=== PATIENT | male | born 1980 | race American Indian/Alaskan Native ===

== ENCOUNTER 2017-01-16 19:23 | Emergency (ER) | payer MEDICAID ==
--- NOTE | 2017-01-16 22:30 | Emergency Department Report ---
ED ENT HPI - General Chief complaint: Dental/Oral Stated complaint: TOOTHACHE Time Seen by Provider: 01/16/17 22:30 Source: patient Mode of arrival: Ambulatory Limitations: No Limitations - History of Present Illness Initial comments: 36-year-old male presents to emergency room with left sided upper toothache. Complains of pain started 3 days ago. Denies any injury to his teeth. History of chronic bowel problems but never get to see dentist. Denies any fever or difficulty swallowing. MD complaint: tooth pain -: Gradual (few days) Location: tooth # (14,15,16) Severity: moderate Severity scale (0 -10): 3 Quality: aching, dull Consistency: constant Worsens with: eating (chewing) Context- Dental: history of dental caries Associated Symptoms: denies: fever, pain with swallowing, sore throat - Related Data Previous Rx's Medication Instructions Recorded Last Taken Type Amoxicillin/K Clav Tab [Augmentin 1 tab PO Q12H #14 tablet 12/10/14 Unknown Rx 875MG] HYDROcodone/APAP 5-325 [[place] 1 each PO Q6HR PRN #12 tablet 12/10/14 Unknown Rx 5/325] Amoxicillin/K Clav Tab [Augmentin 1 tab PO Q12HR #20 tab 05/16/15 Unknown Rx 875MG TAB] Ibuprofen [Motrin 800 MG tab] 800 mg PO TID PRN #20 tablet 05/24/15 Unknown Rx Loratadine/Pseudoephedrine 1 each PO Q12H #20 tablet 05/24/15 Unknown Rx [Claritin-D 12HR] Benzonatate [Tessalon Perles] 100 mg PO Q8HR #20 capsule 05/31/15 Unknown Rx [place] Furoate [Nasonex] 2 spray NS QDAY #1 bottle 05/31/15 Unknown Rx Acetaminophen/Codeine [Tylenol 1 tab PO Q6H PRN #12 tab 01/17/17 Unknown Rx /Codeine # 3 tab] Amoxicillin 500 mg PO TID #30 capsule 01/17/17 Unknown Rx Diclofenac Sodium 75 mg PO BID #20 tablet. 01/17/17 Unknown Rx Allergies Allergy/AdvReac Type Severity Reaction Status Date / Time prednisone Allergy Unknown Verified 01/16/17 20:46 ED Dental HPI - General Chief complaint: Dental/Oral Stated complaint: TOOTHACHE Time Seen by Provider: 01/16/17 22:30 Source: patient Mode of arrival: Ambulatory Limitations: No Limitations - Related Data Previous Rx's Medication Instructions Recorded Last Taken Type Amoxicillin/K Clav Tab [Augmentin 1 tab PO Q12H #14 tablet 12/10/14 Unknown Rx 875MG] HYDROcodone/APAP 5-325 [[place] 1 each PO Q6HR PRN #12 tablet 12/10/14 Unknown Rx 5/325] Amoxicillin/K Clav Tab [Augmentin 1 tab PO Q12HR #20 tab 05/16/15 Unknown Rx 875MG TAB] Ibuprofen [Motrin 800 MG tab] 800 mg PO TID PRN #20 tablet 05/24/15 Unknown Rx Loratadine/Pseudoephedrine 1 each PO Q12H #20 tablet 05/24/15 Unknown Rx [Claritin-D 12HR] Benzonatate [Tessalon Perles] 100 mg PO Q8HR #20 capsule 05/31/15 Unknown Rx [place] Furoate [Nasonex] 2 spray NS QDAY #1 bottle 05/31/15 Unknown Rx Acetaminophen/Codeine [Tylenol 1 tab PO Q6H PRN #12 tab 01/17/17 Unknown Rx /Codeine # 3 tab] Amoxicillin 500 mg PO TID #30 capsule 01/17/17 Unknown Rx Diclofenac Sodium 75 mg PO BID #20 tablet. 01/17/17 Unknown Rx Allergies Allergy/AdvReac Type Severity Reaction Status Date / Time prednisone Allergy Unknown Verified 01/16/17 20:46 ED Review of Systems ROS: Stated complaint: TOOTHACHE Other details as noted in HPI Comment: All other systems reviewed and negative Constitutional: denies: chills, fever Eyes: denies: eye pain, eye discharge, vision change ENT: dental pain. denies: ear pain, throat pain Respiratory: denies: cough, shortness of breath, wheezing Cardiovascular: denies: chest pain, palpitations Endocrine: no symptoms reported Gastrointestinal: denies: abdominal pain, nausea, diarrhea Genitourinary: denies: urgency, dysuria Musculoskeletal: denies: back pain, joint swelling, arthralgia Skin: denies: rash, lesions Neurological: denies: headache, weakness, paresthesias Psychiatric: denies: anxiety, depression Hematological/Lymphatic: denies: easy bleeding, easy bruising ED Past Medical Hx - Past Medical History Previous Medical History?: Yes Hx Psychiatric Treatment: No Additional medical history: seasonal allergies ,[place], heart murmur - Surgical History Past Surgical History?: Yes Additional Surgical History: SINUS SURGERY - Social History Smoking Status: Current Some Day Smoker Substance Use Type: None - Medications Home Medications: Home Medications Medication Instructions Recorded Confirmed Last Taken Type Amoxicillin/K Clav Tab [Augmentin 1 tab PO Q12H #14 tablet 12/10/14 Unknown Rx 875MG] HYDROcodone/APAP 5-325 [[place] 1 each PO Q6HR PRN #12 tablet 12/10/14 Unknown Rx 5/325] Amoxicillin/K Clav Tab [Augmentin 1 tab PO Q12HR #20 tab 05/16/15 Unknown Rx 875MG TAB] Ibuprofen [Motrin 800 MG tab] 800 mg PO TID PRN #20 tablet 05/24/15 Unknown Rx Loratadine/Pseudoephedrine 1 each PO Q12H #20 tablet 05/24/15 Unknown Rx [Claritin-D 12HR] Benzonatate [Tessalon Perles] 100 mg PO Q8HR #20 capsule 05/31/15 Unknown Rx [place] Furoate [Nasonex] 2 spray NS QDAY #1 bottle 05/31/15 Unknown Rx Acetaminophen/Codeine [Tylenol 1 tab PO Q6H PRN #12 tab 01/17/17 Unknown Rx /Codeine # 3 tab] Amoxicillin 500 mg PO TID #30 capsule 01/17/17 Unknown Rx Diclofenac Sodium 75 mg PO BID #20 tablet. 01/17/17 Unknown Rx ED Physical Exam - General Limitations: No Limitations General appearance: alert, in no apparent distress - Head Head exam: Present: atraumatic, normocephalic - Eye Eye exam: Present: normal appearance - ENT ENT exam: Present: normal exam, mucous membranes moist - Expanded ENT Exam Expanded Ear exam: Present: normal external inspection Mouth exam: Present: normal external inspection Teeth exam: Present: dental caries, dental tenderness # () - Neck Neck exam: Present: normal inspection - Respiratory Respiratory exam: Present: normal lung sounds bilaterally. Absent: respiratory distress - Cardiovascular Cardiovascular Exam: Present: regular rate, normal rhythm. Absent: systolic murmur, diastolic murmur, rubs, gallop - GI/Abdominal GI/Abdominal exam: Present: soft, normal bowel sounds - Rectal Rectal exam: Present: deferred - Extremities Exam Extremities exam: Present: normal inspection - Back Exam Back exam: Present: normal inspection - Neurological Exam Neurological exam: Present: alert, oriented X3 - Psychiatric Psychiatric exam: Present: normal affect, normal mood - Skin Skin exam: Present: warm, dry, intact, normal color. Absent: rash ED Course Vital Signs 01/16/17 20:46 Temperature 98.3 F Pulse Rate 50 L Respiratory 18 Rate Blood Pressure 136/86 O2 Sat by Pulse 100 Oximetry Critical care attestation.: If time is entered above; I have spent that time in minutes in the direct care of this critically ill patient, excluding procedure time. ED Disposition Clinical Impression: Dental caries extending into pulp, Dental abscess, Toothache Disposition: DISCHARGED TO HOME OR SELFCARE Is pt being admited?: No Does the pt Need Aspirin: No Condition: Good Instructions: Dental Caries (ED) Prescriptions: Acetaminophen/Codeine [Tylenol /Codeine # 3 tab] 1 tab PO Q6H PRN #12 tab PRN Reason: Pain Amoxicillin 500 mg PO TID #30 capsule Diclofenac Sodium 75 mg PO BID #20 tablet. Referrals: [facility] [Outside] - 3-5 Days
[2017-01-16] MEDS ORDERED: CLEOCIN PO ONE (22:44)
[2017-01-16] MEDS ORDERED: NORCO 10/325 PO ONE (22:45)
[2017-01-17 00:46] VITALS: BP 135/81
== END 2017-01-17 00:47 | disposition home or self-care (01) ==
LOC: ED 19:23
DX: K02.9 Dental caries, unspecified (principal); K04.7 Periapical abscess without sinus; F17.200 Nicotine dependence, unspecified, uncomplicated; Z88.8 Allergy status to other drugs, medicaments and biological substances
CPT/HCPCS: 99282

== ENCOUNTER 2017-03-06 13:38 | Emergency (ER) | payer MEDICAID ==
[2017-03-06 13:53] VITALS: BP 115/72
[2017-03-06 14:10] LABS: Eosinophils % (Auto) 5.6 % (0.0-4.3); Hematocrit 52.1 % (35.5-45.6); Hemoglobin 17.7 gm/dl (11.8-15.2); Mean Corpuscular HGB Conc 34 % (32-34); Mean Corpuscular Hemoglobin 30 pg (28-32); Mean Corpuscular Volume 90 fl (84-94); Platelet Count 244 K/mm3 (140-440); Red Cell Distribution Width 14.4 % (13.2-15.2); White Blood Count 6.2 K/mm3 (4.5-11.0)
[2017-03-06 14:30] LABS: Alanine Aminotransferase 14 units/L (7-56); Albumin 4.3 g/dL (3.9-5); Albumin/Globulin Ratio 1.2 %; Alkaline Phosphatase 24 units/L (35-129); Anion Gap 20 mmol/L; BUN/Creatinine Ratio 14.44; Blood Urea Nitrogen 13 mg/dL (9-20); Calcium 10.3 mg/dL (8.4-10.2); Carbon Dioxide 25 mmol/L (22-30); Chloride 96.3 mmol/L (98-107); Glucose 87 mg/dL (75-100); Lipase 22 units/L (13-60); Sodium 138 mmol/L (137-145); Total Protein 7.9 g/dL (6.3-8.2)
[2017-03-06 14:56] LABS: Bilirubin,Urine NEG (Negative); Blood,Urine NEG (Negative); Ketones,Urine TR mg/dL (Negative); Leukocyte Esterase,Urine NEG (Negative); Mucus,Urine FEW /HPF; Nitrite,Urine NEG (Negative); Urobilinogen,Urine < 2.0 mg/dL (<2.0); WBC,Urine < 1.0 /HPF (0.0-6.0)
== END 2017-03-06 18:30 | disposition left against medical advice (07) ==
LOC: ED 13:38
DX: R10.9 Unspecified abdominal pain (principal); R11.0 Nausea; M79.606 Pain in leg, unspecified; Z53.21 Procedure and treatment not carried out due to patient leaving prior to being seen by health care provider
CPT/HCPCS: 36415; 80053; 81001; 83690; 85025

== ENCOUNTER 2017-03-08 12:11 | Emergency (ER) | payer MEDICAID ==
[2017-03-08 13:16] LABS: Basophils % (Auto) 0.5 % (0.0-1.8); Eosinophils % (Auto) 5.5 % (0.0-4.3); Hematocrit 46.7 % (35.5-45.6); Hemoglobin 15.7 gm/dl (11.8-15.2); Mean Corpuscular HGB Conc 34 % (32-34); Mean Corpuscular Hemoglobin 30 pg (28-32); Mean Corpuscular Volume 91 fl (84-94); Platelet Count 221 K/mm3 (140-440); Red Blood Count 5.15 M/mm3 (3.65-5.03); Red Cell Distribution Width 14.6 % (13.2-15.2); White Blood Count 6.1 K/mm3 (4.5-11.0)
[2017-03-08 13:39] LABS: Bilirubin,Urine NEG (Negative); Blood,Urine NEG (Negative); Ketones,Urine NEG (Negative); Leukocyte Esterase,Urine NEG (Negative); Nitrite,Urine NEG (Negative); Protein,Urine <15 mg/dL mg/dL (Negative); Urobilinogen,Urine < 2.0 mg/dL (<2.0)
[2017-03-08] MEDS ORDERED: BENTYL IM ONE (13:50)
--- NOTE | 2017-03-08 13:57 | Emergency Department Report ---
ED Abdominal Pain HPI - General Chief Complaint: Abdominal Pain Stated Complaint: LEG PAIN/COUGH Time Seen by Provider: 03/08/17 13:25 Source: patient Mode of arrival: Ambulatory Limitations: No Limitations - History of Present Illness Initial Comments: 36-year-old male presents to the emergency department complaining of abdominal pain, cough, and leg pain. Patient reports intermittent, cramping abdominal pain for approximately one week. Symptoms began after eating [place] food. Patient states he vomited shortly after the pain began. Since that time, the patient has been able to tolerate clear liquids and crackers. However, he states whenever he tries to eat a regular meal, the pain returns and he vomits. There has been no diarrhea. Approximately 2 days ago, he also began having a cough productive of yellow sputum. There has been no fever. Patient states that he also ran out of his pain medication for his right leg 2 days ago. Patient had a leg injury several weeks ago and underwent physical therapy. There are no other complaints. MD Complaint: abdominal pain -: Gradual, week(s) (1) Location: diffuse Radiation: none Migration to: no migration Severity: moderate Severity scale (0 -10): 4 Quality: cramping Consistency: intermittent Improves With: nothing Worsens With: eating Context: possible food poisoning Associated Symptoms: nausea, vomiting - Related Data Previous Rx's Medication Instructions Recorded Last Taken Type Amoxicillin/K Clav Tab [Augmentin 1 tab PO Q12H #14 tablet 12/10/14 Unknown Rx 875MG] HYDROcodone/APAP 5-325 [[place] 1 each PO Q6HR PRN #12 tablet 12/10/14 Unknown Rx 5/325] Amoxicillin/K Clav Tab [Augmentin 1 tab PO Q12HR #20 tab 05/16/15 Unknown Rx 875MG TAB] Ibuprofen [Motrin 800 MG tab] 800 mg PO TID PRN #20 tablet 05/24/15 Unknown Rx Loratadine/Pseudoephedrine 1 each PO Q12H #20 tablet 05/24/15 Unknown Rx [Claritin-D 12HR] Benzonatate [Tessalon Perles] 100 mg PO Q8HR #20 capsule 05/31/15 Unknown Rx Mometasone Furoate [Nasonex] 2 spray NS QDAY #1 bottle 05/31/15 Unknown Rx Acetaminophen/Codeine [Tylenol 1 tab PO Q6H PRN #12 tab 01/17/17 Unknown Rx /Codeine # 3 tab] Amoxicillin 500 mg PO TID #30 capsule 01/17/17 Unknown Rx Diclofenac Sodium 75 mg PO BID #20 tablet. 01/17/17 Unknown Rx Acetaminophen with Codeine 1 each PO Q6HR PRN #30 tablet 03/08/17 Unknown Rx [Acetaminophen-Codeine #4 TAB] Promethazine [Phenergan 6.25 mg/5 10 ml PO Q6H PRN #120 ml 03/08/17 Unknown Rx ml ORAL LIQ] Allergies Allergy/AdvReac Type Severity Reaction Status Date / Time prednisone Allergy Unknown Verified 03/08/17 12:30 ED Review of Systems ROS: Stated complaint: LEG PAIN/COUGH Other details as noted in HPI Comment: All other systems reviewed and negative Respiratory: cough Gastrointestinal: abdominal pain, nausea, vomiting Musculoskeletal: as per HPI, myalgia ED Past Medical Hx - Past Medical History Previous Medical History?: Yes Hx Psychiatric Treatment: No Additional medical history: seasonal allergies ,[id number], heart murmur - Surgical History Past Surgical History?: Yes Additional Surgical History: SINUS SURGERY - Family History Family history: no significant - Social History Smoking Status: Current Every Day Smoker Substance Use Type: Alcohol, Marijuana - Medications Home Medications: Home Medications Medication Instructions Recorded Confirmed Last Taken Type Amoxicillin/K Clav Tab [Augmentin 1 tab PO Q12H #14 tablet 12/10/14 Unknown Rx 875MG] HYDROcodone/APAP 5-325 [[place] 1 each PO Q6HR PRN #12 tablet 12/10/14 Unknown Rx 5/325] Amoxicillin/K Clav Tab [Augmentin 1 tab PO Q12HR #20 tab 05/16/15 Unknown Rx 875MG TAB] Ibuprofen [Motrin 800 MG tab] 800 mg PO TID PRN #20 tablet 05/24/15 Unknown Rx Loratadine/Pseudoephedrine 1 each PO Q12H #20 tablet 05/24/15 Unknown Rx [Claritin-D 12HR] Benzonatate [Tessalon Perles] 100 mg PO Q8HR #20 capsule 05/31/15 Unknown Rx Mometasone Furoate [Nasonex] 2 spray NS QDAY #1 bottle 05/31/15 Unknown Rx Acetaminophen/Codeine [Tylenol 1 tab PO Q6H PRN #12 tab 01/17/17 Unknown Rx /Codeine # 3 tab] Amoxicillin 500 mg PO TID #30 capsule 01/17/17 Unknown Rx Diclofenac Sodium 75 mg PO BID #20 tablet. 01/17/17 Unknown Rx Acetaminophen with Codeine 1 each PO Q6HR PRN #30 tablet 03/08/17 Unknown Rx [Acetaminophen-Codeine #4 TAB] Promethazine [Phenergan 6.25 mg/5 10 ml PO Q6H PRN #120 ml 03/08/17 Unknown Rx ml ORAL LIQ] ED Physical Exam - General Limitations: No Limitations General appearance: alert, in no apparent distress - Head Head exam: Present: atraumatic, normocephalic - Eye Eye exam: Present: normal appearance, PERRL, EOMI - ENT ENT exam: Present: normal exam, normal orophraynx, mucous membranes moist - Neck Neck exam: Present: normal inspection, full ROM. Absent: tenderness - Respiratory Respiratory exam: Present: normal lung sounds bilaterally. Absent: respiratory distress - Cardiovascular Cardiovascular Exam: Present: regular rate, normal rhythm, normal heart sounds - GI/Abdominal GI/Abdominal exam: Present: soft, tenderness (mild diffuse tenderness to palpation), normal bowel sounds. Absent: distended, guarding, rebound - Extremities Exam Extremities exam: Present: normal inspection, full ROM. Absent: tenderness - Back Exam Back exam: Present: normal inspection, full ROM. Absent: tenderness - Neurological Exam Neurological exam: Present: alert, oriented X3. Absent: motor sensory deficit - Skin Skin exam: Present: warm, dry, intact ED Course Vital Signs 03/08/17 03/08/17 03/08/17 12:25 14:00 14:16 Temperature 98.1 F Pulse Rate 106 H 53 L Respiratory 18 16 16 Rate Blood Pressure 121/86 Blood Pressure 101/60 [Left] O2 Sat by Pulse 99 99 99 Oximetry ED Medical Decision Making - Lab Data Result diagrams: 03/08/17 12:50 03/08/17 12:50 - Radiology Data Radiology results: image reviewed interpreted by me: Chest x-ray shows no acute cardiopulmonary abnormality. - Medical Decision Making Lab and imaging results reviewed and discussed with the patient. Patient reports feeling better with medication. Patient will be discharged home at this time to follow up with his primary care physician. - Differential Diagnosis gastritis, electrolyte abnormalities, bronchitis, chronic pain Critical care attestation.: If time is entered above; I have spent that time in minutes in the direct care of this critically ill patient, excluding procedure time. ED Disposition Clinical Impression: Cough Gastritis Qualifiers: Gastritis type: unspecified gastritis Chronicity: acute Gastritis bleeding: without bleeding Qualified Code(s): K29.00 - Acute gastritis without bleeding Disposition: DISCHARGED TO HOME OR SELFCARE Is pt being admited?: No Condition: Stable Instructions: Gastritis (ED) Prescriptions: Acetaminophen with Codeine [Acetaminophen-Codeine #4 TAB] 1 each PO Q6HR PRN # 30 tablet PRN Reason: Pain Promethazine [Phenergan 6.25 mg/5 ml ORAL LIQ] 10 ml PO Q6H PRN #120 ml PRN Reason: Nausea And Vomiting Referrals: PRIMARY CARE, [Primary Care Provider] - 3-5 Days Time of Disposition: 14:58
[2017-03-08 14:15] LABS: Alanine Aminotransferase 13 units/L (7-56); Albumin 4.3 g/dL (3.9-5); Albumin/Globulin Ratio 1.3 %; Alkaline Phosphatase 23 units/L (35-129); Anion Gap 20 mmol/L; Blood Urea Nitrogen 18 mg/dL (9-20); Calcium 9.8 mg/dL (8.4-10.2); Carbon Dioxide 26 mmol/L (22-30); Chloride 98.5 mmol/L (98-107); Glucose 91 mg/dL (75-100); Lipase 33 units/L (13-60); Potassium 3.3 mmol/L (3.6-5.0); Sodium 141 mmol/L (137-145); Total Protein 7.5 g/dL (6.3-8.2)
--- NOTE | 2017-03-08 14:38 | XRay Report ---
AP CHEST: HISTORY: Cough AP view of the chest demonstrates a normal mediastinal and cardiac contour with clear lungs and normal bony and soft tissue structures. IMPRESSION: Unremarkable AP chest.
[2017-03-08 15:11] VITALS: BP 108/57
== END 2017-03-08 15:10 | disposition home or self-care (01) ==
LOC: ED 12:11
DX: K29.00 Acute gastritis without bleeding (principal); F17.200 Nicotine dependence, unspecified, uncomplicated; F12.10 Cannabis abuse, uncomplicated
CPT/HCPCS: 36415; 71010; 80053; 81001; 83690; 85025; 96372; 99284; J0500

== ENCOUNTER 2017-03-27 10:28 | Emergency (ER) | payer MEDICAID ==
[2017-03-27 11:24] LABS: Basophils % (Auto) 0.8 % (0.0-1.8); Eosinophils % (Auto) 3.9 % (0.0-4.3); Hemoglobin 16.7 gm/dl (11.8-15.2); Mean Corpuscular HGB Conc 33 % (32-34); Mean Corpuscular Hemoglobin 30 pg (28-32); Mean Corpuscular Volume 91 fl (84-94); Platelet Count 227 K/mm3 (140-440); Red Blood Count 5.51 M/mm3 (3.65-5.03); White Blood Count 5.6 K/mm3 (4.5-11.0)
[2017-03-27 11:40] LABS: Alanine Aminotransferase 18 units/L (7-56); Albumin 3.9 g/dL (3.9-5); Albumin/Globulin Ratio 1.2 %; Alkaline Phosphatase 24 units/L (35-129); Anion Gap 15 mmol/L; Blood Urea Nitrogen 11 mg/dL (9-20); Calcium 9.4 mg/dL (8.4-10.2); Carbon Dioxide 28 mmol/L (22-30); Chloride 102.5 mmol/L (98-107); Glucose 89 mg/dL (75-100); Lipase 44 units/L (13-60); Potassium 3.4 mmol/L (3.6-5.0); Sodium 142 mmol/L (137-145); Total Protein 7.1 g/dL (6.3-8.2)
[2017-03-27 11:43] LABS: Bilirubin,Urine NEG (Negative); Blood,Urine NEG (Negative); Ketones,Urine NEG (Negative); Leukocyte Esterase,Urine TR (Negative); Nitrite,Urine NEG (Negative); Protein,Urine <15 mg/dL mg/dL (Negative); Urobilinogen,Urine < 2.0 mg/dL (<2.0)
[2017-03-27] MEDS ORDERED: ZOFRAN IV ONE (14:17)
[2017-03-27] MEDS ORDERED: TORADOL IV ONE (14:17)
--- NOTE | 2017-03-27 14:18 | Emergency Department Report ---
ED Abdominal Pain HPI - General Chief Complaint: Abdominal Pain Stated Complaint: N/V ABD PAIN Source: patient Mode of arrival: Ambulatory Limitations: No Limitations - Related Data Previous Rx's Medication Instructions Recorded Last Taken Type Amoxicillin/K Clav Tab [Augmentin 1 tab PO Q12H #14 tablet 12/10/14 Unknown Rx 875MG] HYDROcodone/APAP 5-325 [[place] 1 each PO Q6HR PRN #12 tablet 12/10/14 Unknown Rx 5/325] Amoxicillin/K Clav Tab [Augmentin 1 tab PO Q12HR #20 tab 05/16/15 Unknown Rx 875MG TAB] Ibuprofen [Motrin 800 MG tab] 800 mg PO TID PRN #20 tablet 05/24/15 Unknown Rx Loratadine/Pseudoephedrine 1 each PO Q12H #20 tablet 05/24/15 Unknown Rx [Claritin-D 12HR] Benzonatate [Tessalon Perles] 100 mg PO Q8HR #20 capsule 05/31/15 Unknown Rx Mometasone Furoate [Nasonex] 2 spray NS QDAY #1 bottle 05/31/15 Unknown Rx Acetaminophen/Codeine [Tylenol 1 tab PO Q6H PRN #12 tab 01/17/17 Unknown Rx /Codeine # 3 tab] Amoxicillin 500 mg PO TID #30 capsule 01/17/17 Unknown Rx Diclofenac Sodium 75 mg PO BID #20 tablet. 01/17/17 Unknown Rx Acetaminophen with Codeine 1 each PO Q6HR PRN #30 tablet 03/08/17 Unknown Rx [Acetaminophen-Codeine #4 TAB] Promethazine [Phenergan 6.25 mg/5 10 ml PO Q6H PRN #120 ml 03/08/17 Unknown Rx ml ORAL LIQ] Allergies Allergy/AdvReac Type Severity Reaction Status Date / Time prednisone Allergy Unknown Verified 03/08/17 12:30 ED Review of Systems ROS: Stated complaint: N/V ABD PAIN Other details as noted in HPI ED Past Medical Hx - Past Medical History Previous Medical History?: Yes Hx Psychiatric Treatment: No Additional medical history: seasonal allergies ,[place], heart murmur - Surgical History Past Surgical History?: Yes Additional Surgical History: SINUS SURGERY - Social History Smoking Status: Current Every Day Smoker Substance Use Type: Marijuana - Medications Home Medications: Home Medications Medication Instructions Recorded Confirmed Last Taken Type Amoxicillin/K Clav Tab [Augmentin 1 tab PO Q12H #14 tablet 12/10/14 Unknown Rx 875MG] HYDROcodone/APAP 5-325 [[place] 1 each PO Q6HR PRN #12 tablet 12/10/14 Unknown Rx 5/325] Amoxicillin/K Clav Tab [Augmentin 1 tab PO Q12HR #20 tab 05/16/15 Unknown Rx 875MG TAB] Ibuprofen [Motrin 800 MG tab] 800 mg PO TID PRN #20 tablet 05/24/15 Unknown Rx Loratadine/Pseudoephedrine 1 each PO Q12H #20 tablet 05/24/15 Unknown Rx [Claritin-D 12HR] Benzonatate [Tessalon Perles] 100 mg PO Q8HR #20 capsule 05/31/15 Unknown Rx Mometasone Furoate [Nasonex] 2 spray NS QDAY #1 bottle 05/31/15 Unknown Rx Acetaminophen/Codeine [Tylenol 1 tab PO Q6H PRN #12 tab 01/17/17 Unknown Rx /Codeine # 3 tab] Amoxicillin 500 mg PO TID #30 capsule 01/17/17 Unknown Rx Diclofenac Sodium 75 mg PO BID #20 tablet. 01/17/17 Unknown Rx Acetaminophen with Codeine 1 each PO Q6HR PRN #30 tablet 03/08/17 Unknown Rx [Acetaminophen-Codeine #4 TAB] Promethazine [Phenergan 6.25 mg/5 10 ml PO Q6H PRN #120 ml 03/08/17 Unknown Rx ml ORAL LIQ] ED Physical Exam - General Limitations: No Limitations ED Course Vital Signs 03/27/17 10:58 Temperature 98.5 F Pulse Rate 53 L Respiratory 16 Rate Blood Pressure 125/77 O2 Sat by Pulse 100 Oximetry ED Medical Decision Making - Lab Data Result diagrams: 03/27/17 11:07 03/27/17 11:07 Critical care attestation.: If time is entered above; I have spent that time in minutes in the direct care of this critically ill patient, excluding procedure time. ED Disposition Condition: Stable Referrals: PRIMARY CARE,MD [Primary Care Provider] - 3-5 Days
[2017-03-27] MEDS ORDERED: NACL ONE (15:00)
--- NOTE | 2017-03-27 16:04 | Cat Scan Report ---
CT abdomen and pelvis with contrast: Abdominal pain. Transverse images are obtained from lower chest to the ischium following IV contrast. 2-D sagittal and coronal reformatted images included. The visualized lungs are clear. The abdominal and retroperitoneal organs are unremarkable. The unopacified bowel and mesentery appears generally unremarkable. The appendix is questionably identified and if so is retrocecal and normal. There is a relative paucity of mesenteric fat. There is no obvious adenopathy. The abdominal aorta is unremarkable. Images of the pelvis appear normal. No free fluid in no inflammatory changes identified. The bony structures appear normal. Impressions: No pathology identified.
--- NOTE | 2017-03-27 16:27 | Emergency Department Report ---
Entered by YASSINE ENAMORADO, acting as scribe for SERAFIN FLORES PA. <SERAFIN FLORES - Last Filed: 03/27/17 16:09> ED Abdominal Pain HPI - General Chief Complaint: Abdominal Pain Stated Complaint: N/V ABD PAIN Time Seen by Provider: 03/27/17 14:23 Source: patient, family Mode of arrival: Ambulatory Limitations: No Limitations - History of Present Illness Initial Comments: 36 y/o male with a PMHx of heart murmur presents to the ED c/o lower abdominal pain that began 2 days ago. Rates pain a 9/10 in severity, which he describes as sharp in quality. Patient states he was seen at [facility] yesteday for abdominal pain, and was given medication, Pepcid and Maalox with no relief because he vomited the medication up. Patient reports getting blood work done at [facility], but denies getting any scans of abdomen. Associated nausea and vomiting, but he denies hematemesis, diarrhea, hematochezia, fever, and chills. Patient states his last bowel movement was this morning, which he states was not normal and soft. Allergic to prednisone. MD Complaint: abdominal pain (lower) Onset/Timin -: days(s) Location: LLQ, RLQ Radiation: none Migration to: no migration Severity: severe Severity scale (0 -10): 9 Quality: sharp Consistency: constant Improves With: nothing Worsens With: nothing Context: other (unknown) Associated Symptoms: denies other symptoms, nausea, vomiting. denies: diarrhea , fever, chills, constipation, dysuria, hematemesis, hematochezia, hematuria Treatments Prior to Arrival: other (Pepcid and Maalox) - Related Data Previous Rx's Medication Instructions Recorded Last Taken Type Amoxicillin/K Clav Tab [Augmentin 1 tab PO Q12H #14 tablet 12/10/14 Unknown Rx 875MG] HYDROcodone/APAP 5-325 [[place] 1 each PO Q6HR PRN #12 tablet 12/10/14 Unknown Rx 5/325] Amoxicillin/K Clav Tab [Augmentin 1 tab PO Q12HR #20 tab 05/16/15 Unknown Rx 875MG TAB] Ibuprofen [Motrin 800 MG tab] 800 mg PO TID PRN #20 tablet 05/24/15 Unknown Rx Loratadine/Pseudoephedrine 1 each PO Q12H #20 tablet 05/24/15 Unknown Rx [Claritin-D 12HR] Benzonatate [Tessalon Perles] 100 mg PO Q8HR #20 capsule 05/31/15 Unknown Rx Mometasone Furoate [Nasonex] 2 spray NS QDAY #1 bottle 05/31/15 Unknown Rx Acetaminophen/Codeine [Tylenol 1 tab PO Q6H PRN #12 tab 01/17/17 Unknown Rx /Codeine # 3 tab] Amoxicillin 500 mg PO TID #30 capsule 01/17/17 Unknown Rx Diclofenac Sodium 75 mg PO BID #20 tablet. 01/17/17 Unknown Rx Acetaminophen with Codeine 1 each PO Q6HR PRN #30 tablet 03/08/17 Unknown Rx [Acetaminophen-Codeine #4 TAB] Promethazine [Phenergan 6.25 mg/5 10 ml PO Q6H PRN #120 ml 03/08/17 Unknown Rx ml ORAL LIQ] Dicyclomine [Bentyl] 20 mg PO QID PRN #12 tablet 03/27/17 Unknown Rx Promethazine [Phenergan TAB] 25 mg PO Q8HR PRN #12 tab 03/27/17 Unknown Rx Allergies Allergy/AdvReac Type Severity Reaction Status Date / Time prednisone Allergy Unknown Verified 03/08/17 12:30 ED Review of Systems Comment: All other systems reviewed and negative Constitutional: denies: chills, fever, weakness ENT: denies: ear pain, throat pain, congestion Respiratory: denies: cough, shortness of breath, SOB with exertion, SOB at rest , wheezing, other Cardiovascular: denies: chest pain, palpitations, edema, syncope Gastrointestinal: abdominal pain (lower), nausea. denies: vomiting, diarrhea, constipation, hematemesis, hematochezia Genitourinary: denies: dysuria, frequency, hematuria, discharge, testicular pain , testicular mass Musculoskeletal: denies: back pain, joint swelling, arthralgia, myalgia Skin: denies: rash, lesions Neurological: denies: headache, weakness, paresthesias ED Past Medical Hx - Past Medical History Previous Medical History?: Yes Hx Psychiatric Treatment: No Additional medical history: seasonal allergies ,[place], heart murmur - Surgical History Past Surgical History?: Yes Additional Surgical History: SINUS SURGERY - Family History Family history: no significant, hypertension - Social History Smoking Status: Current Every Day Smoker Substance Use Type: Marijuana - Medications Home Medications: Home Medications Medication Instructions Recorded Confirmed Last Taken Type Amoxicillin/K Clav Tab [Augmentin 1 tab PO Q12H #14 tablet 12/10/14 Unknown Rx 875MG] HYDROcodone/APAP 5-325 [[place] 1 each PO Q6HR PRN #12 tablet 12/10/14 Unknown Rx 5/325] Amoxicillin/K Clav Tab [Augmentin 1 tab PO Q12HR #20 tab 05/16/15 Unknown Rx 875MG TAB] Ibuprofen [Motrin 800 MG tab] 800 mg PO TID PRN #20 tablet 05/24/15 Unknown Rx Loratadine/Pseudoephedrine 1 each PO Q12H #20 tablet 05/24/15 Unknown Rx [Claritin-D 12HR] Benzonatate [Tessalon Perles] 100 mg PO Q8HR #20 capsule 05/31/15 Unknown Rx [place] Furoate [Nasonex] 2 spray NS QDAY #1 bottle 05/31/15 Unknown Rx Acetaminophen/Codeine [Tylenol 1 tab PO Q6H PRN #12 tab 01/17/17 Unknown Rx /Codeine # 3 tab] Amoxicillin 500 mg PO TID #30 capsule 01/17/17 Unknown Rx Diclofenac Sodium 75 mg PO BID #20 tablet. 01/17/17 Unknown Rx Acetaminophen with Codeine 1 each PO Q6HR PRN #30 tablet 03/08/17 Unknown Rx [Acetaminophen-Codeine #4 TAB] Promethazine [Phenergan 6.25 mg/5 10 ml PO Q6H PRN #120 ml 03/08/17 Unknown Rx ml ORAL LIQ] Dicyclomine [Bentyl] 20 mg PO QID PRN #12 tablet 03/27/17 Unknown Rx Promethazine [Phenergan TAB] 25 mg PO Q8HR PRN #12 tab 03/27/17 Unknown Rx ED Physical Exam - General Limitations: No Limitations General appearance: alert, in no apparent distress - Head Head exam: Present: atraumatic, normocephalic, normal inspection - Eye Eye exam: Present: normal appearance, PERRL, EOMI. Absent: periorbital swelling , periorbital tenderness Pupils: Present: normal accommodation - ENT ENT exam: Present: normal exam, normal orophraynx, mucous membranes moist, TM's normal bilaterally, normal external ear exam - Neck Neck exam: Present: normal inspection, full ROM. Absent: tenderness, meningismus, lymphadenopathy - Respiratory Respiratory exam: Present: normal lung sounds bilaterally. Absent: respiratory distress, wheezes, rales, rhonchi, stridor, chest wall tenderness, accessory muscle use, decreased breath sounds - Cardiovascular Cardiovascular Exam: Present: regular rate, normal rhythm, normal heart sounds - GI/Abdominal GI/Abdominal exam: Present: soft, tenderness (LLQ and RLQ), guarding, normal bowel sounds. Absent: distended, rebound, rigid, organomegaly, mass, bruit, pulsatile mass - Extremities Exam Extremities exam: Present: normal inspection, full ROM, normal capillary refill. Absent: tenderness, pedal edema, joint swelling, calf tenderness - Back Exam Back exam: Present: normal inspection, full ROM. Absent: tenderness, CVA tenderness (R), CVA tenderness (L), muscle spasm, paraspinal tenderness, vertebral tenderness, rash noted - Neurological Exam Neurological exam: Present: alert, oriented X3, normal gait, reflexes normal. Absent: motor sensory deficit - Psychiatric Psychiatric exam: Present: normal affect, normal mood - Skin Skin exam: Present: warm, dry, intact, normal color. Absent: rash ED Course Vital Signs 03/27/17 03/27/17 10:58 16:37 Temperature 98.5 F Pulse Rate 53 L 60 Respiratory 16 16 Rate Blood Pressure 125/77 Blood Pressure 120/71 [Left] O2 Sat by Pulse 100 100 Oximetry - Reevaluation(s) Reevaluation #1: 03/27/17 16:15 Patient given Zofran 4 mg IV and Toradol [address] scan revealed no acute findings. Reevaluation #2: 03/27/17 16:20 normal abdominal exam upon reassessment ED Medical Decision Making - Lab Data Result diagrams: 03/27/17 11:07 03/27/17 11:07 Lab Results 03/27/17 03/27/17 03/27/17 Range/Units 11:07 11:07 11:25 WBC 5.6 (4.5-11.0) K/mm3 RBC 5.51 H (3.65-5.03) M/mm3 Hgb 16.7 H (11.8-15.2) gm/dl Hct 50.0 H (35.5-45.6) % MCV 91 (84-94) fl MCH 30 (28-32) pg MCHC 33 (32-34) % RDW 15.0 (13.2-15.2) % Plt Count 227 (140-440) K/mm3 Lymph % (Auto) 29.5 (13.4-35.0) % [place] % (Auto) 6.5 (0.0-7.3) % Eos % (Auto) 3.9 (0.0-4.3) % Baso % (Auto) 0.8 (0.0-1.8) % Lymph # 1.6 (1.2-5.4) K/mm3 [place] # 0.4 (0.0-0.8) K/mm3 Eos # 0.2 (0.0-0.4) K/mm3 Baso # 0.0 (0.0-0.1) K/mm3 Seg Neutrophils % 59.3 (40.0-70.0) % Seg Neutrophils # 3.3 (1.8-7.7) K/mm3 Sodium 142 (137-145) mmol/L Potassium 3.4 L (3.6-5.0) mmol/L Chloride 102.5 (98-107) mmol/L Carbon Dioxide 28 (22-30) mmol/L Anion Gap 15 mmol/L BUN 11 (9-20) mg/dL Creatinine 1.0 (0.8-1.5) mg/dL Estimated GFR > 60 ml/min BUN/Creatinine Ratio 11.00 % Glucose 89 (75-100) mg/dL Calcium 9.4 (8.4-10.2) mg/dL Total Bilirubin 0.90 (0.1-1.2) mg/dL AST 26 (5-40) units/L ALT 18 (7-56) units/L Alkaline Phosphatase 24 L (35-129) units/L Total Protein 7.1 (6.3-8.2) g/dL Albumin 3.9 (3.9-5) g/dL Albumin/Globulin Ratio 1.2 % Lipase 44 (13-60) units/L Urine Color Straw (Yellow) Urine Turbidity Clear (Clear) Urine pH 7.0 (5.0-7.0) Ur Specific [place] 1.006 (1.003-1.030) Urine Protein <15 mg/dl (Negative) mg/dL Urine Glucose (UA) Neg (Negative) mg/dL Urine Ketones Neg (Negative) mg/dL Urine Blood Neg (Negative) Urine Nitrite Neg (Negative) Urine Bilirubin Neg (Negative) Urine Urobilinogen < 2.0 (<2.0) mg/dL Ur Leukocyte Esterase Tr (Negative) Urine WBC (Auto) 2.0 (0.0-6.0) /HPF Urine RBC (Auto) 1.0 (0.0-6.0) /HPF - Radiology Data Radiology results: report reviewed CT scan of abdomen and pelvis reveal no pathology identified. There is no obvious adenopathy, or abdominal aorta is unremarkable. Images of the pelvis appears normal. No free fluid and no inflammatory changes identified. The bony structures appears normal. The abdomen and retroperitoneal organs or unremarkable. On the patient's forehead bowel and mesentery appears generally unremarkable. The appendix is questionably identified and if so it is retrocecal and normal. - Medical Decision Making [place]: Patient complaint abdominal pain [address] scan with negative findings. Labs stable. Patient given Toradol 30 mg IV and Zofran 4 mg IV. He was seen at [facility] [place] yesterday and did not have CAT scan done. Did blood work and told them that he has acid reflux and placed him on medication for acid reflux. I discussed this CAT scan results and labs and finding to patient and prescription given for [place] Phenergan and follow-up with latex foam worker for further studies. Disposition: discharged home in stable condition and in no acute distress.. ED Disposition Disposition: DC- TO HOME OR SELFCARE Is pt being admited?: No Does the pt Need Aspirin: No Condition: Stable Instructions: Acute Nausea and Vomiting (ED), Abdominal Pain (ED) Additional Instructions: Please follow up with latex foam worker as instructed. Take medication as prescribed Prescriptions: Dicyclomine [Bentyl] 20 mg PO QID PRN #12 tablet PRN Reason: Pain Promethazine [Phenergan TAB] 25 mg PO Q8HR PRN #12 tab PRN Reason: Nausea Referrals: [facility] [Provider Group] - 03/29/17 Forms: Accompanied Note, Work/School Release Form(ED) <ANDRÉS BELLAMY - Last Filed: 03/27/17 18:33> ED Medical Decision Making - Lab Data Result diagrams: 03/27/17 11:07 03/27/17 11:07 This documentation as recorded by the debibeFEI JASMINE,accurately reflects the service I personally performed and the decisions made by ,SERAFIN FLORES PA.
[2017-03-27 16:38] VITALS: BP 120/71
== END 2017-03-27 16:37 | disposition home or self-care (01) ==
LOC: ED 10:28
DX: R10.31 Right lower quadrant pain (principal); R10.32 Left lower quadrant pain; R11.2 Nausea with vomiting, unspecified; F17.200 Nicotine dependence, unspecified, uncomplicated; F12.10 Cannabis abuse, uncomplicated; Z88.8 Allergy status to other drugs, medicaments and biological substances
CPT/HCPCS: 36415; 74177; 80053; 81001; 83690; 85025; 96374; 96375; 99284; J1885; J2405; Q9967

== ENCOUNTER 2017-04-29 15:29 | Emergency (ER) | payer MEDICAID ==
[2017-04-29 16:05] VITALS: BP 114/74
--- NOTE | 2017-04-29 16:33 | Emergency Department Report ---
Entered by YASSINE ENAMORADO, acting as scribe for SERAFIN FLORES PA. Chief Complaint: Abdominal Pain Stated Complaint: ABD/ARM/LEG PAIN/NAUSEA Time Seen by Provider: 04/29/17 16:07 - HPI History of Present Illness: Patient c/o 8/10 midline umbilical abdominal pain that began 3 days ago. Aggravated with palpation and alleviated with immobilization. Reports nausea and vomiting x 1 episode. Patient also c/o right leg and right arm pain that began 2 days ago. Patient states the right arm and right leg pain is worse in the morning and improves throughout the day. Notes taking OTC pain medication with no relief. Patient has been seen in this ED multiple times for similar complaints. Denies dysuria. Denies urinary frequency and urgency Denies fever and chills. PMHx of seasonal surgeries. - ROS Review of Systems: All system are negative unless stated in HPI above. - Exam Vital Signs: Vital Signs 04/29/17 15:58 Temperature 98.5 F Pulse Rate 48 L Respiratory 16 Rate Blood Pressure 114/74 O2 Sat by Pulse 99 Oximetry Physical Exam: General: well nourished, well developed, 36 year old male in no acute distress and nontoxic in appearance Abdomen: Soft, normal bowel sounds in all quadrants and negative CVA tenderness bilaterally. Mid abdominal tenderness. No guarding or rebound. Extremities: No CCE. +2 pulses. No neurovascular compromise. FROM to all extremities. No swelling, erythema, or edema present to extremities. MSE screening note: Focused history and physical exam performed. Due to findings the following was ordered: see below ED Medical Decision Making - Medical Decision Making MDM: Patient screened by provider in triage area. Appropriate protocol initiated. Patient to be seen by MD on main ED side. ED Disposition for MSE Condition: Stable This documentation as recorded by the scribe,YASSINE ENAMORADO,accurately reflects the service I personally performed and the decisions made by me,SERAFIN FLORES PA.
[2017-04-29 16:54] LABS: Basophils % (Auto) 0.9 % (0.0-1.8); Eosinophils % (Auto) 4.6 % (0.0-4.3); Hematocrit 51.4 % (35.5-45.6); Hemoglobin 17.1 gm/dl (11.8-15.2); Mean Corpuscular HGB Conc 33 % (32-34); Mean Corpuscular Hemoglobin 31 pg (28-32); Mean Corpuscular Volume 92 fl (84-94); Platelet Count 214 K/mm3 (140-440); Red Blood Count 5.57 M/mm3 (3.65-5.03); Red Cell Distribution Width 14.5 % (13.2-15.2); White Blood Count 6.9 K/mm3 (4.5-11.0)
[2017-04-29 17:02] LABS: Bilirubin,Urine NEG (Negative); Blood,Urine MOD (Negative); Ketones,Urine NEG (Negative); Leukocyte Esterase,Urine NEG (Negative); Nitrite,Urine NEG (Negative)
[2017-04-29 17:25] LABS: Alanine Aminotransferase 13 units/L (7-56); Albumin 4.3 g/dL (3.9-5); Albumin/Globulin Ratio 1.3 %; Alkaline Phosphatase 27 units/L (35-129); Anion Gap 20 mmol/L; BUN/Creatinine Ratio 14.44; Blood Urea Nitrogen 13 mg/dL (9-20); Calcium 9.6 mg/dL (8.4-10.2); Carbon Dioxide 26 mmol/L (22-30); Chloride 99.1 mmol/L (98-107); Glucose 83 mg/dL (75-100); Lipase 28 units/L (13-60); Potassium 3.6 mmol/L (3.6-5.0); Sodium 141 mmol/L (137-145); Total Protein 7.5 g/dL (6.3-8.2)
--- NOTE | 2017-04-29 18:57 | Emergency Department Report ---
ED Abdominal Pain HPI - General Chief Complaint: Abdominal Pain Stated Complaint: ABD/ARM/LEG PAIN/NAUSEA Time Seen by Provider: 04/29/17 18:29 Source: patient Mode of arrival: Ambulatory Limitations: No Limitations - History of Present Illness MD Complaint: abdominal pain -: month(s) Location: epigastric Radiation: none Migration to: no migration Severity scale (0 -10): 5 Quality: sharp Associated Symptoms: nausea. denies: vomiting, diarrhea - Related Data Previous Rx's Medication Instructions Recorded Last Taken Type Amoxicillin/K Clav Tab [Augmentin 1 tab PO Q12H #14 tablet 12/10/14 Unknown Rx 875MG] HYDROcodone/APAP 5-325 [[place] 1 each PO Q6HR PRN #12 tablet 12/10/14 Unknown Rx 5/325] Amoxicillin/K Clav Tab [Augmentin 1 tab PO Q12HR #20 tab 05/16/15 Unknown Rx 875MG TAB] Ibuprofen [Motrin 800 MG tab] 800 mg PO TID PRN #20 tablet 05/24/15 Unknown Rx Loratadine/Pseudoephedrine 1 each PO Q12H #20 tablet 05/24/15 Unknown Rx [Claritin-D 12HR] Benzonatate [Tessalon Perles] 100 mg PO Q8HR #20 capsule 05/31/15 Unknown Rx Mometasone Furoate [Nasonex] 2 spray NS QDAY #1 bottle 05/31/15 Unknown Rx Acetaminophen/Codeine [Tylenol 1 tab PO Q6H PRN #12 tab 01/17/17 Unknown Rx /Codeine # 3 tab] Amoxicillin 500 mg PO TID #30 capsule 01/17/17 Unknown Rx Diclofenac Sodium 75 mg PO BID #20 tablet. 01/17/17 Unknown Rx Acetaminophen with Codeine 1 each PO Q6HR PRN #30 tablet 03/08/17 Unknown Rx [Acetaminophen-Codeine #4 TAB] Promethazine [Phenergan 6.25 mg/5 10 ml PO Q6H PRN #120 ml 03/08/17 Unknown Rx ml ORAL LIQ] Dicyclomine [Bentyl] 20 mg PO QID PRN #12 tablet 03/27/17 Unknown Rx Promethazine [Phenergan TAB] 25 mg PO Q8HR PRN #12 tab 03/27/17 Unknown Rx Esomeprazole Magnesium [NexIUM] 40 mg PO QDAY #30 capsule. 04/29/17 Unknown Rx Ondansetron [Zofran Odt] 4 mg PO Q4-6H PRN #14 tab.theodoredis 04/29/17 Unknown Rx traMADol [Ultram 50 MG tab] 50 mg PO Q4HR PRN #14 tablet 04/29/17 Unknown Rx Allergies Allergy/AdvReac Type Severity Reaction Status Date / Time prednisone Allergy Unknown Verified 03/08/17 12:30 ED Review of Systems ROS: Stated complaint: ABD/ARM/LEG PAIN/NAUSEA Other details as noted in HPI Comment: All other systems reviewed and negative Constitutional: denies: chills, fever Respiratory: denies: cough, shortness of breath Cardiovascular: denies: chest pain, palpitations Gastrointestinal: abdominal pain, nausea. denies: vomiting, diarrhea, constipation Genitourinary: denies: dysuria Musculoskeletal: back pain, arthralgia, myalgia Neurological: denies: headache, numbness, paresthesias ED Past Medical Hx - Past Medical History Hx Psychiatric Treatment: No Additional medical history: seasonal allergies ,[place], heart murmur - Surgical History Additional Surgical History: SINUS SURGERY - Social History Smoking Status: Current Every Day Smoker Substance Use Type: None - Medications Home Medications: Home Medications Medication Instructions Recorded Confirmed Last Taken Type Amoxicillin/K Clav Tab [Augmentin 1 tab PO Q12H #14 tablet 12/10/14 Unknown Rx 875MG] HYDROcodone/APAP 5-325 [[place] 1 each PO Q6HR PRN #12 tablet 12/10/14 Unknown Rx 5/325] Amoxicillin/K Clav Tab [Augmentin 1 tab PO Q12HR #20 tab 05/16/15 Unknown Rx 875MG TAB] Ibuprofen [Motrin 800 MG tab] 800 mg PO TID PRN #20 tablet 05/24/15 Unknown Rx Loratadine/Pseudoephedrine 1 each PO Q12H #20 tablet 05/24/15 Unknown Rx [Claritin-D 12HR] Benzonatate [Tessalon Perles] 100 mg PO Q8HR #20 capsule 05/31/15 Unknown Rx Mometasone Furoate [Nasonex] 2 spray NS QDAY #1 bottle 05/31/15 Unknown Rx Acetaminophen/Codeine [Tylenol 1 tab PO Q6H PRN #12 tab 01/17/17 Unknown Rx /Codeine # 3 tab] Amoxicillin 500 mg PO TID #30 capsule 01/17/17 Unknown Rx Diclofenac Sodium 75 mg PO BID #20 tablet. 01/17/17 Unknown Rx Acetaminophen with Codeine 1 each PO Q6HR PRN #30 tablet 03/08/17 Unknown Rx [Acetaminophen-Codeine #4 TAB] Promethazine [Phenergan 6.25 mg/5 10 ml PO Q6H PRN #120 ml 03/08/17 Unknown Rx ml ORAL LIQ] Dicyclomine [Bentyl] 20 mg PO QID PRN #12 tablet 03/27/17 Unknown Rx Promethazine [Phenergan TAB] 25 mg PO Q8HR PRN #12 tab 03/27/17 Unknown Rx Esomeprazole Magnesium [NexIUM] 40 mg PO QDAY #30 capsule. 04/29/17 Unknown Rx Ondansetron [Zofran Odt] 4 mg PO Q4-6H PRN #14 tab.rapdis 04/29/17 Unknown Rx traMADol [Ultram 50 MG tab] 50 mg PO Q4HR PRN #14 tablet 04/29/17 Unknown Rx ED Physical Exam - General Limitations: No Limitations General appearance: alert, in no apparent distress - Head Head exam: Present: atraumatic - ENT ENT exam: Present: normal exam - Neck Neck exam: Present: normal inspection. Absent: tenderness, meningismus - Respiratory Respiratory exam: Present: normal lung sounds bilaterally. Absent: respiratory distress, wheezes, rales, rhonchi - Cardiovascular Cardiovascular Exam: Present: regular rate, normal rhythm, normal heart sounds - GI/Abdominal GI/Abdominal exam: Present: soft, normal bowel sounds. Absent: tenderness, guarding, rebound, rigid, organomegaly, mass, bruit, pulsatile mass, hernia - Extremities Exam Extremities exam: Present: normal inspection, full ROM - Back Exam Back exam: Present: normal inspection - Neurological Exam Neurological exam: Present: alert, oriented X3, CN II-XII intact - Skin Skin exam: Present: warm, dry ED Course Vital Signs 04/29/17 15:58 Temperature 98.5 F Pulse Rate 48 L Respiratory 16 Rate Blood Pressure 114/74 O2 Sat by Pulse 99 Oximetry ED Medical Decision Making - Lab Data Result diagrams: 04/29/17 16:44 04/29/17 16:44 Critical care attestation.: If time is entered above; I have spent that time in minutes in the direct care of this critically ill patient, excluding procedure time. ED Disposition Clinical Impression: Abdominal pain, Gastritis Disposition: TO HOME OR SELFCARE Is pt being admited?: No Does the pt Need Aspirin: No Condition: Stable Prescriptions: Esomeprazole Magnesium [NexIUM] 40 mg PO QDAY #30 capsule. Ondansetron [Zofran Odt] 4 mg PO Q4-6H PRN #14 tab.rapdis PRN Reason: Nausea And Vomiting traMADol [Ultram 50 MG tab] 50 mg PO Q4HR PRN #14 tablet PRN Reason: Pain Referrals: PRIMARY CARE, [Primary Care Provider] - 3-5 Days
== END 2017-04-29 19:13 | disposition home or self-care (01) ==
LOC: ED 15:29
DX: K29.70 Gastritis, unspecified, without bleeding (principal); F17.200 Nicotine dependence, unspecified, uncomplicated; Z88.8 Allergy status to other drugs, medicaments and biological substances
CPT/HCPCS: 36415; 80053; 81001; 83690; 85025; 99283

== ENCOUNTER 2017-06-02 06:53 | Emergency (ER) | payer MEDICAID ==
[2017-06-02 07:39] LABS: Eosinophils % (Auto) 5.4 % (0.0-4.3); Hematocrit 50.3 % (35.5-45.6); Hemoglobin 16.8 gm/dl (11.8-15.2); Mean Corpuscular HGB Conc 34 % (32-34); Mean Corpuscular Hemoglobin 30 pg (28-32); Mean Corpuscular Volume 91 fl (84-94); Platelet Count 192 K/mm3 (140-440); Red Blood Count 5.54 M/mm3 (3.65-5.03); Red Cell Distribution Width 14.1 % (13.2-15.2); White Blood Count 5.8 K/mm3 (4.5-11.0)
[2017-06-02 07:58] LABS: Alanine Aminotransferase 14 units/L (7-56); Albumin 3.5 g/dL (3.9-5); Albumin/Globulin Ratio 0.9 %; Alkaline Phosphatase 23 units/L (35-129); Anion Gap 17 mmol/L; Blood Urea Nitrogen 10 mg/dL (9-20); Carbon Dioxide 24 mmol/L (22-30); Chloride 97.6 mmol/L (98-107); Glucose 89 mg/dL (75-100); Lipase 35 units/L (13-60); Potassium 3.2 mmol/L (3.6-5.0); Sodium 135 mmol/L (137-145); Total Protein 7.4 g/dL (6.3-8.2)
[2017-06-02 08:00] LABS: Bilirubin,Urine NEG (Negative); Blood,Urine NEG (Negative); Ketones,Urine NEG (Negative); Leukocyte Esterase,Urine NEG (Negative); Nitrite,Urine NEG (Negative); Protein,Urine <15 mg/dL mg/dL (Negative); Urobilinogen,Urine < 2.0 mg/dL (<2.0); WBC,Urine < 1.0 /HPF (0.0-6.0)
[2017-06-02 11:44] VITALS: BP 130/73
[2017-06-02] MEDS ORDERED: NORCO 10/325 PO ONE (13:25)
[2017-06-02] MEDS ORDERED: ZOFRAN PO ONE ×2 (14:26→15:30)
[2017-06-02] MEDS ORDERED: ZOFRAN ODT ONE (14:28)
--- NOTE | 2017-06-02 14:30 | Emergency Department Report ---
ED General Adult HPI - General Chief complaint: Abdominal Pain Stated complaint: NAUSEA/VOMITING/ABD PAIN/LIM Time Seen by Provider: 06/02/17 12:28 Source: patient Mode of arrival: Ambulatory Limitations: Other - History of Present Illness Initial comments: Patient is a 37-year-old male past medical history of upset stomach who presents with abdominal pain that has been going on for the last 2 days. Patient states the abdominal pain has been going on for the last 2 days patient states pain is midepigastric quadrants burning it's an 8 out of 10 and doesn't radiate it's constant and nothing seems to make it better or worse. He states that he's been taking Pepcid and Bentyl but that hasn't really helped his abdominal pain. Severity scale (0 -10): 5 - Related Data Previous Rx's Medication Instructions Recorded Last Taken Type Amoxicillin/K Clav Tab [Augmentin 1 tab PO Q12H #14 tablet 12/10/14 Unknown Rx 875MG] HYDROcodone/APAP 5-325 [[place] 1 each PO Q6HR PRN #12 tablet 12/10/14 Unknown Rx 5/325] Amoxicillin/K Clav Tab [Augmentin 1 tab PO Q12HR #20 tab 05/16/15 Unknown Rx 875MG TAB] Ibuprofen [Motrin 800 MG tab] 800 mg PO TID PRN #20 tablet 05/24/15 Unknown Rx Loratadine/Pseudoephedrine 1 each PO Q12H #20 tablet 05/24/15 Unknown Rx [Claritin-D 12HR] Benzonatate [Tessalon Perles] 100 mg PO Q8HR #20 capsule 05/31/15 Unknown Rx Mometasone Furoate [Nasonex] 2 spray NS QDAY #1 bottle 05/31/15 Unknown Rx Acetaminophen/Codeine [Tylenol 1 tab PO Q6H PRN #12 tab 01/17/17 Unknown Rx /Codeine # 3 tab] Amoxicillin 500 mg PO TID #30 capsule 01/17/17 Unknown Rx Diclofenac Sodium 75 mg PO BID #20 tablet. 01/17/17 Unknown Rx Acetaminophen with Codeine 1 each PO Q6HR PRN #30 tablet 03/08/17 Unknown Rx [Acetaminophen-Codeine #4 TAB] Dicyclomine [Bentyl] 20 mg PO QID PRN #12 tablet 03/27/17 Unknown Rx Promethazine [Phenergan TAB] 25 mg PO Q8HR PRN #12 tab 03/27/17 Unknown Rx Acetaminophen/Codeine [Tylenol 1 tab PO Q6H PRN #14 tab 04/29/17 Unknown Rx /Codeine # 3 tab] Esomeprazole Magnesium [NexIUM] 40 mg PO QDAY #30 capsule. 04/29/17 Unknown Rx Ondansetron [Zofran Odt] 4 mg PO Q4-6H PRN #14 tab.dante 04/29/17 Unknown Rx Promethazine [Phenergan 6.25 mg/5 10 ml PO Q6H PRN #120 ml 06/02/17 Unknown Rx ml ORAL LIQ] Allergies Allergy/AdvReac Type Severity Reaction Status Date / Time prednisone Allergy Unknown Verified 03/08/17 12:30 ED Review of Systems ROS: Stated complaint: NAUSEA/VOMITING/ABD PAIN/LIM Other details as noted in HPI Constitutional: denies: chills, fever Eyes: denies: eye pain, eye discharge, vision change ENT: denies: ear pain, throat pain Respiratory: denies: cough, shortness of breath, wheezing Cardiovascular: denies: chest pain, palpitations Endocrine: no symptoms reported Gastrointestinal: abdominal pain, nausea. denies: diarrhea Genitourinary: denies: urgency, dysuria Musculoskeletal: denies: back pain, joint swelling, arthralgia Skin: denies: rash, lesions Neurological: denies: headache, weakness, paresthesias Psychiatric: denies: anxiety, depression Hematological/Lymphatic: denies: easy bleeding, easy bruising ED Past Medical Hx - Past Medical History Previous Medical History?: No Hx Psychiatric Treatment: No Additional medical history: seasonal allergies ,[place] heart murmur - Surgical History Additional Surgical History: SINUS SURGERY - Social History Smoking Status: Current Every Day Smoker Substance Use Type: None - Medications Home Medications: Home Medications Medication Instructions Recorded Confirmed Last Taken Type Amoxicillin/K Clav Tab [Augmentin 1 tab PO Q12H #14 tablet 12/10/14 Unknown Rx 875MG] HYDROcodone/APAP 5-325 [[place] 1 each PO Q6HR PRN #12 tablet 12/10/14 Unknown Rx 5/325] Amoxicillin/K Clav Tab [Augmentin 1 tab PO Q12HR #20 tab 05/16/15 Unknown Rx 875MG TAB] Ibuprofen [Motrin 800 MG tab] 800 mg PO TID PRN #20 tablet 05/24/15 Unknown Rx Loratadine/Pseudoephedrine 1 each PO Q12H #20 tablet 05/24/15 Unknown Rx [Claritin-D 12HR] Benzonatate [Tessalon Perles] 100 mg PO Q8HR #20 capsule 05/31/15 Unknown Rx Mometasone Furoate [Nasonex] 2 spray NS QDAY #1 bottle 05/31/15 Unknown Rx Acetaminophen/Codeine [Tylenol 1 tab PO Q6H PRN #12 tab 01/17/17 Unknown Rx /Codeine # 3 tab] Amoxicillin 500 mg PO TID #30 capsule 01/17/17 Unknown Rx Diclofenac Sodium 75 mg PO BID #20 tablet. 01/17/17 Unknown Rx Acetaminophen with Codeine 1 each PO Q6HR PRN #30 tablet 03/08/17 Unknown Rx [Acetaminophen-Codeine #4 TAB] Dicyclomine [Bentyl] 20 mg PO QID PRN #12 tablet 03/27/17 Unknown Rx Promethazine [Phenergan TAB] 25 mg PO Q8HR PRN #12 tab 03/27/17 Unknown Rx Acetaminophen/Codeine [Tylenol 1 tab PO Q6H PRN #14 tab 04/29/17 Unknown Rx /Codeine # 3 tab] Esomeprazole Magnesium [NexIUM] 40 mg PO QDAY #30 capsule. 04/29/17 Unknown Rx Ondansetron [Zofran Odt] 4 mg PO Q4-6H PRN #14 tab.rapdis 04/29/17 Unknown Rx Promethazine [Phenergan 6.25 mg/5 10 ml PO Q6H PRN #120 ml 06/02/17 Unknown Rx ml ORAL LIQ] ED Physical Exam - General Limitations: Other General appearance: alert, in no apparent distress - Head Head exam: Present: atraumatic, normocephalic - Eye Eye exam: Present: normal appearance - ENT ENT exam: Present: mucous membranes moist - Neck Neck exam: Present: normal inspection - Respiratory Respiratory exam: Present: normal lung sounds bilaterally. Absent: respiratory distress - Cardiovascular Cardiovascular Exam: Present: regular rate, normal rhythm. Absent: systolic murmur, diastolic murmur, rubs, gallop - GI/Abdominal GI/Abdominal exam: Present: soft, normal bowel sounds - Rectal Rectal exam: Present: deferred - Extremities Exam Extremities exam: Present: normal inspection - Back Exam Back exam: Present: normal inspection - Neurological Exam Neurological exam: Present: alert, oriented X3 - Psychiatric Psychiatric exam: Present: normal affect, normal mood - Skin Skin exam: Present: warm, dry, intact, normal color. Absent: rash ED Course Vital Signs 06/02/17 06/02/17 06/02/17 07:13 11:39 11:42 Temperature 97.5 F L 97.6 F Pulse Rate 42 L 41 L Respiratory 18 18 18 Rate Blood Pressure 111/75 Blood Pressure 130/73 [Left] O2 Sat by Pulse 100 97 97 Oximetry - Reevaluation(s) Reevaluation #1: 06/02/17 14:30 Patient's abdominal pain is better after oral medication I will send patient home. ED Medical Decision Making - Lab Data Result diagrams: 06/02/17 07:21 06/02/17 07:21 Lab Results 06/02/17 06/02/17 06/02/17 Range/Units 07:21 07:21 07:32 WBC 5.8 (4.5-11.0) K/mm3 RBC 5.54 H (3.65-5.03) M/mm3 Hgb 16.8 H (11.8-15.2) gm/dl Hct 50.3 H (35.5-45.6) % MCV 91 (84-94) fl MCH 30 (28-32) pg MCHC 34 (32-34) % RDW 14.1 (13.2-15.2) % Plt Count 192 (140-440) K/mm3 Lymph % (Auto) 41.1 H (13.4-35.0) % [place] % (Auto) 6.7 (0.0-7.3) % Eos % (Auto) 5.4 H (0.0-4.3) % Baso % (Auto) 1.0 (0.0-1.8) % Lymph # 2.4 (1.2-5.4) K/mm3 [place] # 0.4 (0.0-0.8) K/mm3 Eos # 0.3 (0.0-0.4) K/mm3 Baso # 0.1 (0.0-0.1) K/mm3 Seg Neutrophils % 45.8 (40.0-70.0) % Seg Neutrophils # 2.7 (1.8-7.7) K/mm3 Sodium 135 L (137-145) mmol/L Potassium 3.2 L (3.6-5.0) mmol/L Chloride 97.6 L (98-107) mmol/L Carbon Dioxide 24 (22-30) mmol/L Anion Gap 17 mmol/L BUN 10 (9-20) mg/dL Creatinine 0.8 (0.8-1.5) mg/dL Estimated GFR > 60 ml/min BUN/Creatinine Ratio 12.50 % Glucose 89 (75-100) mg/dL Calcium 9.0 (8.4-10.2) mg/dL Total Bilirubin 0.50 (0.1-1.2) mg/dL AST 28 (5-40) units/L ALT 14 (7-56) units/L Alkaline Phosphatase 23 L (35-129) units/L Total Protein 7.4 (6.3-8.2) g/dL Albumin 3.5 L (3.9-5) g/dL Albumin/Globulin Ratio 0.9 % Lipase 35 (13-60) units/L Urine Color Colorless (Yellow) Urine Turbidity Clear (Clear) Urine pH 7.0 (5.0-7.0) Ur Specific [place] 1.004 (1.003-1.030) Urine Protein <15 mg/dl (Negative) mg/dL Urine Glucose (UA) Neg (Negative) mg/dL Urine Ketones Neg (Negative) mg/dL Urine Blood Neg (Negative) Urine Nitrite Neg (Negative) Urine Bilirubin Neg (Negative) Urine Urobilinogen < 2.0 (<2.0) mg/dL Ur Leukocyte Esterase Neg (Negative) Urine WBC (Auto) < 1.0 (0.0-6.0) /HPF Urine RBC (Auto) 2.0 (0.0-6.0) /HPF U Epithel Cells (Auto) < 1.0 (0-13.0) /HPF - Medical Decision Making Chief medical diagnosis: Pancreatitis Differential medical diagnosis: GERD, gastritis, malingering Wall. CBC, CMP, lipase, oral pain medications Patient's laboratory work is unrevealing I will send patient home. Critical care attestation.: If time is entered above; I have spent that time in minutes in the direct care of this critically ill patient, excluding procedure time. ED Disposition Clinical Impression: Nausea Abdominal pain Qualifiers: Abdominal location: epigastric Qualified Code(s): R10.13 - Epigastric pain Gastritis Qualifiers: Gastritis type: unspecified gastritis Chronicity: unspecified Gastritis bleeding: without bleeding Qualified Code(s): K29.70 - Gastritis, unspecified, without bleeding Disposition: - TO HOME OR SELFCARE Is pt being admited?: No Does the pt Need Aspirin: No Condition: Stable Prescriptions: Promethazine [Phenergan 6.25 mg/5 ml ORAL LIQ] 10 ml PO Q6H PRN #120 ml PRN Reason: Nausea And Vomiting Referrals: PRIMARY CARE, [Primary Care Provider] - 3-5 Days Forms: Work/School Release Form(ED)
[2017-06-02] MEDS ORDERED: ALUM-MAG HYDROX-SIMETH 200-200-20MG/5ML PO ONE (14:37)
[2017-06-02] MEDS ORDERED: LIDOCAINE VISCOUS 2% PO ONE (14:37)
== END 2017-06-02 15:42 | disposition home or self-care (01) ==
LOC: ED 06:53
DX: K29.70 Gastritis, unspecified, without bleeding (principal); F17.210 Nicotine dependence, cigarettes, uncomplicated; Z88.8 Allergy status to other drugs, medicaments and biological substances
CPT/HCPCS: 36415; 80053; 81001; 83690; 85025; 99283; Q0162

== ENCOUNTER 2017-06-03 20:39 | Emergency (ER) | payer MEDICAID ==
[2017-06-03 22:32] VITALS: BP 106/82
--- NOTE | 2017-06-04 01:42 | XRay Report ---
FINAL REPORT PROCEDURE: XR FOOT BILAT 2V TECHNIQUE: BILATERAL foot radiographs, AP and lateral views. HISTORY: B/L foot swelling/pain COMPARISON: No prior studies are available for comparison. FINDINGS: RIGHT FOOT: Fracture (s) and/or Dislocation(s): None. Alignment: Normal. Joint space(s): Normal. Soft tissues: Normal. Bone mineralization: Normal. Foreign bodies: None . Calcaneal spurring: None. LEFT FOOT: Fracture (s) and/or Dislocation(s): None. Alignment: Normal. Joint space(s): Normal. Soft tissues: Normal. Bone mineralization: Normal. Foreign bodies: None . Calcaneal spurring: None. IMPRESSION: Normal Examination.
[2017-06-04] MEDS ORDERED: MOTRIN PO ONE (04:28)
--- NOTE | 2017-06-04 04:29 | Emergency Department Report ---
ED Lower Extremity HPI - General Chief Complaint: Extremity Injury, Lower Stated Complaint: FEET SWELLING, LIM Time Seen by Provider: 06/04/17 04:23 Source: patient Mode of arrival: Ambulatory Limitations: No Limitations - History of Present Illness Initial Comments: This is a 37-year-old male nontoxic, well nourished in appearance, no acute signs of distress presents to the ED complaining of the presented ED complaining of bilateral foot pain and swelling 2 days. Patient stated at work he dropped a palett to bilateral foot and stated weight about 50 pounds. Patient denies any numbness, tingling, decreased range of motion, nausea, vomiting, chest pain or shortness of breath. Rates pain as 9 out of 10 as aching. Patient stated allergy to prednisone. Past medical history includes heart murmur. MD Complaint: foot injury -: Gradual, days(s) (2) Type of Injury: blunt Place: work Severity: mild Severity scale (0 -10): 9 Improves With: nothing Worsens With: nothing Context: direct blow Associated Symptoms: swelling, ambulatory. denies: snap/pop sensation, numbness , tingling, unable to bear weight, able to partially bear weight - Related Data Previous Rx's Medication Instructions Recorded Last Taken Type Amoxicillin/K Clav Tab [Augmentin 1 tab PO Q12H #14 tablet 12/10/14 Unknown Rx 875MG] HYDROcodone/APAP 5-325 [[place] 1 each PO Q6HR PRN #12 tablet 12/10/14 Unknown Rx 5/325] Amoxicillin/K Clav Tab [Augmentin 1 tab PO Q12HR #20 tab 05/16/15 Unknown Rx 875MG TAB] Ibuprofen [Motrin 800 MG tab] 800 mg PO TID PRN #20 tablet 05/24/15 Unknown Rx Loratadine/Pseudoephedrine 1 each PO Q12H #20 tablet 05/24/15 Unknown Rx [Claritin-D 12HR] Benzonatate [Tessalon Perles] 100 mg PO Q8HR #20 capsule 05/31/15 Unknown Rx Mometasone Furoate [Nasonex] 2 spray NS QDAY #1 bottle 05/31/15 Unknown Rx Acetaminophen/Codeine [Tylenol 1 tab PO Q6H PRN #12 tab 01/17/17 Unknown Rx /Codeine # 3 tab] Amoxicillin 500 mg PO TID #30 capsule 01/17/17 Unknown Rx Diclofenac Sodium 75 mg PO BID #20 tablet. 01/17/17 Unknown Rx Acetaminophen with Codeine 1 each PO Q6HR PRN #30 tablet 03/08/17 Unknown Rx [Acetaminophen-Codeine #4 TAB] Dicyclomine [Bentyl] 20 mg PO QID PRN #12 tablet 03/27/17 Unknown Rx Promethazine [Phenergan TAB] 25 mg PO Q8HR PRN #12 tab 03/27/17 Unknown Rx Acetaminophen/Codeine [Tylenol 1 tab PO Q6H PRN #14 tab 04/29/17 Unknown Rx /Codeine # 3 tab] Esomeprazole Magnesium [NexIUM] 40 mg PO QDAY #30 capsule. 04/29/17 Unknown Rx Ondansetron [Zofran Odt] 4 mg PO Q4-6H PRN #14 tab.rapdis 04/29/17 Unknown Rx Promethazine [Phenergan 6.25 mg/5 10 ml PO Q6H PRN #120 ml 06/02/17 Unknown Rx ml ORAL LIQ] Ibuprofen [Motrin 600 MG tab] 600 mg PO Q8H PRN #30 tablet 06/04/17 Unknown Rx Allergies Allergy/AdvReac Type Severity Reaction Status Date / Time prednisone Allergy Unknown Verified 03/08/17 12:30 ED Review of Systems ROS: Stated complaint: FEET SWELLING, LIM Other details as noted in HPI Constitutional: denies: chills, fever Eyes: denies: eye pain, eye discharge, vision change ENT: denies: ear pain, throat pain Respiratory: denies: cough, shortness of breath, wheezing Cardiovascular: denies: chest pain, palpitations Endocrine: no symptoms reported Gastrointestinal: denies: abdominal pain, nausea, diarrhea Genitourinary: denies: urgency, dysuria Musculoskeletal: denies: back pain, joint swelling, arthralgia Skin: denies: rash, lesions Neurological: denies: headache, weakness, paresthesias Psychiatric: denies: anxiety, depression Hematological/Lymphatic: denies: easy bleeding, easy bruising ED Past Medical Hx - Past Medical History Previous Medical History?: Yes Hx Psychiatric Treatment: No Additional medical history: seasonal allergies ,[place], heart murmur - Surgical History Past Surgical History?: Yes Additional Surgical History: SINUS SURGERY - Social History Smoking Status: Current Every Day Smoker Substance Use Type: Alcohol, Marijuana - Medications Home Medications: Home Medications Medication Instructions Recorded Confirmed Last Taken Type Amoxicillin/K Clav Tab [Augmentin 1 tab PO Q12H #14 tablet 12/10/14 Unknown Rx 875MG] HYDROcodone/APAP 5-325 [[place] 1 each PO Q6HR PRN #12 tablet 12/10/14 Unknown Rx 5/325] Amoxicillin/K Clav Tab [Augmentin 1 tab PO Q12HR #20 tab 05/16/15 Unknown Rx 875MG TAB] Ibuprofen [Motrin 800 MG tab] 800 mg PO TID PRN #20 tablet 05/24/15 Unknown Rx Loratadine/Pseudoephedrine 1 each PO Q12H #20 tablet 05/24/15 Unknown Rx [Claritin-D 12HR] Benzonatate [Tessalon Perles] 100 mg PO Q8HR #20 capsule 05/31/15 Unknown Rx Mometasone Furoate [Nasonex] 2 spray NS QDAY #1 bottle 05/31/15 Unknown Rx Acetaminophen/Codeine [Tylenol 1 tab PO Q6H PRN #12 tab 01/17/17 Unknown Rx /Codeine # 3 tab] Amoxicillin 500 mg PO TID #30 capsule 01/17/17 Unknown Rx Diclofenac Sodium 75 mg PO BID #20 tablet. 01/17/17 Unknown Rx Acetaminophen with Codeine 1 each PO Q6HR PRN #30 tablet 03/08/17 Unknown Rx [Acetaminophen-Codeine #4 TAB] Dicyclomine [Bentyl] 20 mg PO QID PRN #12 tablet 03/27/17 Unknown Rx Promethazine [Phenergan TAB] 25 mg PO Q8HR PRN #12 tab 03/27/17 Unknown Rx Acetaminophen/Codeine [Tylenol 1 tab PO Q6H PRN #14 tab 04/29/17 Unknown Rx /Codeine # 3 tab] Esomeprazole Magnesium [NexIUM] 40 mg PO QDAY #30 capsule. 04/29/17 Unknown Rx Ondansetron [Zofran Odt] 4 mg PO Q4-6H PRN #14 tab.rapdis 04/29/17 Unknown Rx Promethazine [Phenergan 6.25 mg/5 10 ml PO Q6H PRN #120 ml 06/02/17 Unknown Rx ml ORAL LIQ] Ibuprofen [Motrin 600 MG tab] 600 mg PO Q8H PRN #30 tablet 06/04/17 Unknown Rx ED Physical Exam - General Limitations: No Limitations General appearance: alert, in no apparent distress - Head Head exam: Present: atraumatic, normocephalic, normal inspection - Eye Eye exam: Present: normal appearance, PERRL, EOMI. Absent: scleral icterus, conjunctival injection, nystagmus, periorbital swelling, periorbital tenderness - ENT ENT exam: Present: normal exam, normal orophraynx, mucous membranes moist, TM's normal bilaterally, normal external ear exam - Neck Neck exam: Present: normal inspection, full ROM. Absent: tenderness, meningismus, lymphadenopathy, thyromegaly - Respiratory Respiratory exam: Present: normal lung sounds bilaterally. Absent: respiratory distress, wheezes, rales, rhonchi, stridor, chest wall tenderness, accessory muscle use, decreased breath sounds, prolonged expiratory - Cardiovascular Cardiovascular Exam: Present: regular rate, normal rhythm, normal heart sounds. Absent: bradycardia, tachycardia, irregular rhythm, systolic murmur, diastolic murmur, rubs, gallop - GI/Abdominal GI/Abdominal exam: Present: soft, normal bowel sounds - Rectal Rectal exam: Present: deferred - Extremities Exam Extremities exam: Present: normal inspection, full ROM, normal capillary refill. Absent: tenderness, pedal edema, joint swelling, calf tenderness - Expanded Lower Extremity Exam Right Hip exam: Present: normal inspection (bilateral exam), full ROM. Absent: tenderness, swelling Upper Leg exam: Present: normal inspection (bilateral exam), full ROM. Absent: tenderness Knee exam: Present: normal inspection (bilateral exam), full ROM. Absent: tenderness, swelling Lower Leg exam: Present: normal inspection (bilateral exam), full ROM. Absent: tenderness, swelling Ankle exam: Present: normal inspection (bilateral exam), full ROM. Absent: tenderness, swelling Foot/Toe exam: Present: normal inspection (bilateral exam), full ROM. Absent: tenderness, swelling, abrasion, laceration, ecchymosis, deformity, crepidus, dislocation, erythema, amputation, puncture wound, foreign body, calcaneal tenderness, tenderness at base of 5th metatarsal, nail avulsion, subungual hematoma Neuro vascular tendon exam: Present: no vascular compromise. Absent: pulse deficit, abnormal cap refill, motor deficit, sensory deficit, tendon deficit, extremity cold to touch, pallor, abnormal 2-point discrimination, decreased fine /light touch, foot drop, peroneal nerve deficit, significant pain with passive ROM of distal joint Gait: Positive: observed and normal - Back Exam Back exam: Present: normal inspection, full ROM. Absent: tenderness, CVA tenderness (R), CVA tenderness (L), muscle spasm, paraspinal tenderness, vertebral tenderness, rash noted - Neurological Exam Neurological exam: Present: alert, oriented X3, CN II-XII intact, normal gait, reflexes normal - Psychiatric Psychiatric exam: Present: normal affect, normal mood - Skin Skin exam: Present: warm, dry, intact, normal color. Absent: rash ED Course Vital Signs 06/03/17 06/03/17 22:31 22:35 Temperature 98.4 F 98.4 F Pulse Rate 43 L 43 L Respiratory 18 18 Rate Blood Pressure 106/82 Blood Pressure 106/82 [Right] O2 Sat by Pulse 100 100 Oximetry - Reevaluation(s) Reevaluation #1: 06/04/17 04:30 Patient is requesting for Tylenol 3 for pain. Reevaluation #2: 06/04/17 04:30 Patient is speaking full sentences but no signs of distress noted. ED Lower Extremity MDM - Medical Decision Making This is a 37-year-old male that presents with contusion to bilateral feet. Patient was examined myself. Patient is stable. X-ray of bilateral feet has been obtained with no findings of any abnormalities. Dictated by radiologist. Patient was notified of x-ray results with no further questions noted. Patient is requested for Tylenol 3 in the ED and is discharged. [facility] indicates patient has filled hydrocodone/acetaminophen 5-325 with quantity of 20. Prior to the patient has been prescribed Tylenol 3 and Tylenol No. 4. Patient received ibuprofen at discharge and emergency room. Patient was instructed to rest, elevate, ice extremity. Patient received crutches at discharge with follow-up with orthopedic doctor in 3-5 days. At time time of discharge, the patient does not seem toxic or ill in appearance. No acute signs of distress noted. Patient agrees to discharge treatment plan of care. No further questions noted by the patient. Critical care attestation.: If time is entered above; I have spent that time in minutes in the direct care of this critically ill patient, excluding procedure time. ED Disposition Clinical Impression: Contusion Qualifiers: Encounter type: initial encounter Contusion area: foot Laterality: unspecified laterality Qualified Code(s): S90.30XA - Contusion of unspecified foot, initial encounter Disposition: TO HOME OR SELFCARE Is pt being admited?: No Does the pt Need Aspirin: No Condition: Stable Instructions: Ibuprofen (By mouth), Foot Contusion (ED) Additional Instructions: Follow-up with orthopedic doctor in 3-5 days or if symptoms worsen presented to emergency room as soon as possible. Prescriptions: Ibuprofen [Motrin 600 MG tab] 600 mg PO Q8H PRN #30 tablet PRN Reason: Pain Referrals: PRIMARY CAREMD [Primary Care Provider] - 3-5 Days MACO CASTANEDA MD [Staff Physician] - 3-5 Days [facility] [Outside] - 3-5 Days
== END 2017-06-04 04:58 | disposition home or self-care (01) ==
LOC: ED 20:39
DX: S90.30XA Contusion of unspecified foot, initial encounter (principal); F17.200 Nicotine dependence, unspecified, uncomplicated; F12.90 Cannabis use, unspecified, uncomplicated; Z88.8 Allergy status to other drugs, medicaments and biological substances; X58.XXXA Exposure to other specified factors, initial encounter; Y93.89 Activity, other specified; Y99.9 Unspecified external cause status; Y92.89 Other specified places as the place of occurrence of the external cause

== ENCOUNTER 2017-06-19 22:29 | Emergency (ER) | payer MEDICAID ==
[2017-06-20 00:21] VITALS: BP 122/73
[2017-06-20] MEDS ORDERED: LIDOCAINE VISCOUS 2% PO ONE (01:06)
[2017-06-20] MEDS ORDERED: TORADOL IM ONE (01:06)
[2017-06-20] MEDS ORDERED: TESSALON PERLES PO ONE (01:07)
--- NOTE | 2017-06-20 01:14 | Emergency Department Report ---
- General Chief Complaint: Upper Respiratory Infection Stated Complaint: COUGH, HEADACHE, PAIN Time Seen by Provider: 06/20/17 00:47 Source: patient Mode of arrival: Ambulatory Limitations: No Limitations - History of Present Illness Initial Comments: This is a 37-year-old male nontoxic, well nourished in appearance, no acute signs of distress presents to the ED complaining of cough, body aches, productive cough, and sore throat 2 weeks. Patient denies any abdominal pain nausea or vomiting. Patient describes cough production as yellow/green mucus production. Patient states subjective fever and has been taking over-the- counter Tylenol with last dose 1 hour prior to arrival to the emergency room. Patient denies sick contact. Denies hemoptysis, nausea, wheezing, vomiting, stiff neck, headache, numbness, tingling, chest pain, shortness of breath, calf pain, calf tenderness, chills. Patient states allergies to prednisone.. Past medical history includes heart murmur. Patient denies recent travels, long car rides or recent hospital stays. MD Complaint: cough, sore throat -: Gradual, week(s) (2) Severity: mild Severity scale (0 -10): 10 Quality: aching Consistency: constant Improves With: nothing Worsens With: nothing Associated Symptoms: sore throat, cough. denies: fever, chills, myalgias, diaphoresis, headache, rhinorrhea, nasal congestion, stiff neck, chest pain, shortness of breath, abdominal pain, nausea, vomiting, diarrhea, dysuria, rash, confusion, right sweats, weight loss, epistaxis, hoarseness, ear pain Treatments Prior to Arrival: none - Related Data Previous Rx's Medication Instructions Recorded Last Taken Type Amoxicillin/K Clav Tab [Augmentin 1 tab PO Q12H #14 tablet 12/10/14 Unknown Rx 875MG] HYDROcodone/APAP 5-325 [[place] 1 each PO Q6HR PRN #12 tablet 12/10/14 Unknown Rx 5/325] Amoxicillin/K Clav Tab [Augmentin 1 tab PO Q12HR #20 tab 05/16/15 Unknown Rx 875MG TAB] Ibuprofen [Motrin 800 MG tab] 800 mg PO TID PRN #20 tablet 05/24/15 Unknown Rx Loratadine/Pseudoephedrine 1 each PO Q12H #20 tablet 05/24/15 Unknown Rx [Claritin-D 12HR] Benzonatate [Tessalon Perles] 100 mg PO Q8HR #20 capsule 05/31/15 Unknown Rx Mometasone Furoate [Nasonex] 2 spray NS QDAY #1 bottle 05/31/15 Unknown Rx Acetaminophen/Codeine [Tylenol 1 tab PO Q6H PRN #12 tab 01/17/17 Unknown Rx /Codeine # 3 tab] Amoxicillin 500 mg PO TID #30 capsule 01/17/17 Unknown Rx Diclofenac Sodium 75 mg PO BID #20 tablet. 01/17/17 Unknown Rx Acetaminophen with Codeine 1 each PO Q6HR PRN #30 tablet 03/08/17 Unknown Rx [Acetaminophen-Codeine #4 TAB] Dicyclomine [Bentyl] 20 mg PO QID PRN #12 tablet 03/27/17 Unknown Rx Promethazine [Phenergan TAB] 25 mg PO Q8HR PRN #12 tab 03/27/17 Unknown Rx Acetaminophen/Codeine [Tylenol 1 tab PO Q6H PRN #14 tab 04/29/17 Unknown Rx /Codeine # 3 tab] Esomeprazole Magnesium [NexIUM] 40 mg PO QDAY #30 capsule. 04/29/17 Unknown Rx Ondansetron [Zofran Odt] 4 mg PO Q4-6H PRN #14 tab.rapdis 04/29/17 Unknown Rx Promethazine [Phenergan 6.25 mg/5 10 ml PO Q6H PRN #120 ml 06/02/17 Unknown Rx ml ORAL LIQ] Ibuprofen [Motrin 600 MG tab] 600 mg PO Q8H PRN #30 tablet 06/04/17 Unknown Rx Azithromycin [Zithromax Z-VIANCA] 250 mg PO DAILY #6 tablet 06/20/17 Unknown Rx Benzonatate [Tessalon Perles] 100 mg PO Q8HR #30 capsule 06/20/17 Unknown Rx Lidocaine Viscous 2% 15 ml MM Q6H 10 Days 06/20/17 Unknown Rx Allergies Allergy/AdvReac Type Severity Reaction Status Date / Time prednisone Allergy Unknown Verified 03/08/17 12:30 ED Review of Systems ROS: Stated complaint: COUGH, HEADACHE, PAIN Other details as noted in HPI Constitutional: denies: chills, fever Eyes: denies: eye pain, eye discharge, vision change ENT: throat pain. denies: ear pain Respiratory: cough. denies: shortness of breath, wheezing Cardiovascular: denies: chest pain, palpitations Endocrine: no symptoms reported Gastrointestinal: denies: abdominal pain, nausea, diarrhea Genitourinary: denies: urgency, dysuria Musculoskeletal: denies: back pain, joint swelling, arthralgia Skin: denies: rash, lesions Neurological: denies: headache, weakness, paresthesias Psychiatric: denies: anxiety, depression Hematological/Lymphatic: denies: easy bleeding, easy bruising ED Past Medical Hx - Past Medical History Previous Medical History?: Yes Hx Psychiatric Treatment: No Additional medical history: seasonal allergies ,[place], heart murmur - Surgical History Past Surgical History?: Yes Additional Surgical History: SINUS SURGERY - Social History Smoking Status: Current Every Day Smoker Substance Use Type: Marijuana - Medications Home Medications: Home Medications Medication Instructions Recorded Confirmed Last Taken Type Amoxicillin/K Clav Tab [Augmentin 1 tab PO Q12H #14 tablet 12/10/14 Unknown Rx 875MG] HYDROcodone/APAP 5-325 [[place] 1 each PO Q6HR PRN #12 tablet 12/10/14 Unknown Rx 5/325] Amoxicillin/K Clav Tab [Augmentin 1 tab PO Q12HR #20 tab 05/16/15 Unknown Rx 875MG TAB] Ibuprofen [Motrin 800 MG tab] 800 mg PO TID PRN #20 tablet 05/24/15 Unknown Rx Loratadine/Pseudoephedrine 1 each PO Q12H #20 tablet 05/24/15 Unknown Rx [Claritin-D 12HR] Benzonatate [Tessalon Perles] 100 mg PO Q8HR #20 capsule 05/31/15 Unknown Rx Mometasone Furoate [Nasonex] 2 spray NS QDAY #1 bottle 05/31/15 Unknown Rx Acetaminophen/Codeine [Tylenol 1 tab PO Q6H PRN #12 tab 01/17/17 Unknown Rx /Codeine # 3 tab] Amoxicillin 500 mg PO TID #30 capsule 01/17/17 Unknown Rx Diclofenac Sodium 75 mg PO BID #20 tablet. 01/17/17 Unknown Rx Acetaminophen with Codeine 1 each PO Q6HR PRN #30 tablet 03/08/17 Unknown Rx [Acetaminophen-Codeine #4 TAB] Dicyclomine [Bentyl] 20 mg PO QID PRN #12 tablet 03/27/17 Unknown Rx Promethazine [Phenergan TAB] 25 mg PO Q8HR PRN #12 tab 03/27/17 Unknown Rx Acetaminophen/Codeine [Tylenol 1 tab PO Q6H PRN #14 tab 04/29/17 Unknown Rx /Codeine # 3 tab] Esomeprazole Magnesium [NexIUM] 40 mg PO QDAY #30 capsule. 04/29/17 Unknown Rx Ondansetron [Zofran Odt] 4 mg PO Q4-6H PRN #14 tab.rapdis 04/29/17 Unknown Rx Promethazine [Phenergan 6.25 mg/5 10 ml PO Q6H PRN #120 ml 06/02/17 Unknown Rx ml ORAL LIQ] Ibuprofen [Motrin 600 MG tab] 600 mg PO Q8H PRN #30 tablet 06/04/17 Unknown Rx Azithromycin [Zithromax Z-VIANCA] 250 mg PO DAILY #6 tablet 06/20/17 Unknown Rx Benzonatate [Tessalon Perles] 100 mg PO Q8HR #30 capsule 06/20/17 Unknown Rx Lidocaine Viscous 2% 15 ml MM Q6H 10 Days 06/20/17 Unknown Rx ED Physical Exam - General Limitations: No Limitations General appearance: alert, in no apparent distress - Head Head exam: Present: atraumatic, normocephalic, normal inspection - Eye Eye exam: Present: normal appearance, PERRL, EOMI. Absent: scleral icterus, conjunctival injection, nystagmus, periorbital swelling, periorbital tenderness Pupils: Present: normal accommodation - ENT ENT exam: Present: normal exam, mucous membranes moist, TM's normal bilaterally , normal external ear exam - Expanded ENT Exam Expanded Ear exam: Present: normal external inspection Mouth exam: Present: normal external inspection, tongue normal. Absent: drooling, trismus, muffled voice, tongue elevation, laceration Teeth exam: Present: normal inspection Throat exam: Positive: tonsillar erythema, other (uvula midline. No abscesses or swelling noted.). Negative: tonsillomegaly, tonsillar exudate, R peritonsillar mass, L peritonsillar mass - Neck Neck exam: Present: normal inspection, full ROM. Absent: tenderness, meningismus, lymphadenopathy, thyromegaly - Respiratory Respiratory exam: Present: normal lung sounds bilaterally. Absent: respiratory distress, wheezes, rales, rhonchi, stridor, chest wall tenderness, accessory muscle use, decreased breath sounds, prolonged expiratory - Cardiovascular Cardiovascular Exam: Present: regular rate, normal rhythm, normal heart sounds. Absent: bradycardia, tachycardia, irregular rhythm, systolic murmur, diastolic murmur, rubs, gallop - GI/Abdominal GI/Abdominal exam: Present: soft, normal bowel sounds. Absent: distended, tenderness, guarding, rebound, rigid, diminished bowel sounds - Rectal Rectal exam: Present: deferred - Extremities Exam Extremities exam: Present: normal inspection, full ROM, normal capillary refill. Absent: tenderness, pedal edema, joint swelling, calf tenderness - Back Exam Back exam: Present: normal inspection, full ROM. Absent: tenderness, CVA tenderness (R), CVA tenderness (L), muscle spasm, paraspinal tenderness, vertebral tenderness, rash noted - Neurological Exam Neurological exam: Present: alert, oriented X3, CN II-XII intact, normal gait, reflexes normal - Psychiatric Psychiatric exam: Present: normal affect, normal mood - Skin Skin exam: Present: warm, dry, intact, normal color. Absent: rash ED Course Vital Signs 06/19/17 22:42 Temperature 98.8 F Pulse Rate 53 L Respiratory 20 Rate Blood Pressure 122/73 O2 Sat by Pulse 99 Oximetry - Reevaluation(s) Reevaluation #1: 06/20/17 01:14 Patient is speaking in full sentences with no signs of distress noted. Critical care attestation.: If time is entered above; I have spent that time in minutes in the direct care of this critically ill patient, excluding procedure time. ED Disposition Clinical Impression: Upper respiratory infection Qualifiers: URI type: unspecified URI Qualified Code(s): J06.9 - Acute upper respiratory infection, unspecified Disposition: DC- TO HOME OR SELFCARE Is pt being admited?: No Does the pt Need Aspirin: No Condition: Stable Instructions: Upper Respiratory Infection (ED), Azithromycin (By mouth), Benzonatate (By mouth) Additional Instructions: Follow-up with a primary care doctor in 3-5 days or if symptoms worsen or continue return to emergency room as was possible. Prescriptions: Azithromycin [Zithromax Z-VIANCA] 250 mg PO DAILY #6 tablet Benzonatate [Tessalon Perles] 100 mg PO Q8HR #30 capsule Lidocaine Viscous 2% 15 ml MM Q6H 10 Days Referrals: PRIMARY CAREMD [Primary Care Provider] - 3-5 Days DEEP SCHWARTZ MD [Staff Physician] - 3-5 Days [facility] [Outside] - 3-5 Days [facility] [Outside] - 3-5 Days Forms: Work/School Release Form(ED)
--- NOTE | 2017-06-20 02:52 | XRay Report ---
FINAL REPORT PROCEDURE: XR CHEST ROUTINE 2V TECHNIQUE: PA and lateral chest radiographs were obtained. CPT 47734 HISTORY: cough sob COMPARISON: No prior studies are available for comparison. FINDINGS: Heart: Normal. Mediastinum/Vessels: Normal. Lungs/Pleural space: There is calcified granuloma in the right upper lung. There are no infiltrates, effusions or pneumothoraces.. Bony thorax: No acute osseous abnormality. Other: IMPRESSION: Heart size is normal. Lungs are clear. There are no infiltrates, effusions or pneumothoraces. There is a tiny calcified granuloma in the right upper lung..
== END 2017-06-20 03:00 | disposition home or self-care (01) ==
LOC: ED 22:29
DX: J06.9 Acute upper respiratory infection, unspecified (principal); F12.10 Cannabis abuse, uncomplicated; F17.200 Nicotine dependence, unspecified, uncomplicated
CPT/HCPCS: 71020; 87400; 96372; 99283; J1885

== ENCOUNTER 2017-07-05 05:23 | Emergency (ER) | payer MEDICAID ==
[2017-07-05 06:27] LABS: Bilirubin,Urine NEG (Negative); Blood,Urine NEG (Negative); Ketones,Urine NEG (Negative); Leukocyte Esterase,Urine NEG (Negative); Nitrite,Urine NEG (Negative); Protein,Urine <15 mg/dL mg/dL (Negative); Urobilinogen,Urine < 2.0 mg/dL (<2.0)
[2017-07-05 08:42] LABS: Eosinophils % (Auto) 4.3 % (0.0-4.3); Hematocrit 53.4 % (35.5-45.6); Hemoglobin 17.9 gm/dl (11.8-15.2); Mean Corpuscular HGB Conc 34 % (32-34); Mean Corpuscular Hemoglobin 30 pg (28-32); Mean Corpuscular Volume 91 fl (84-94); Platelet Count 227 K/mm3 (140-440); Red Blood Count 5.88 M/mm3 (3.65-5.03); Red Cell Distribution Width 14.4 % (13.2-15.2); White Blood Count 8.3 K/mm3 (4.5-11.0)
[2017-07-05] MEDS ORDERED: TORADOL IV ONE (08:43)
[2017-07-05] MEDS ORDERED: ZOFRAN IV ONE (08:43)
--- NOTE | 2017-07-05 08:49 | Emergency Department Report ---
HPI - General Chief Complaint: Abdominal Pain Time Seen by Provider: 07/05/17 08:26 - HPI HPI: Room 8 The patient is a 37-year-old male presenting with a chief complaint of toothache and on pain nausea vomiting. The patient states for the past 2 days his pain in his bilateral upper wisdom teeth making it difficult for him to eat solid foods. The patient states the toothache has caused him to have a headache. The patient states he called [facility] and is scheduled to have surgery for his wisdom teeth but they cannot see him until after Thanksgiving. The patient states for the past 6 days his lower abdominal pain and nausea. The patient states he vomited once. Patient denies diarrhea or fever. Location: [see above] Duration: 6 days Quality: Pain Severity: Moderate Modifying factors: [see above] Context: [see above] Mode of transportation: Public Transportation ED Past Medical Hx - Past Medical History Previous Medical History?: Yes Additional medical history: seasonal allergies ,[place], heart murmur - Surgical History Past Surgical History?: Yes Additional Surgical History: SINUS SURGERY - Family History Family history: no significant - Social History Smoking Status: Current Every Day Smoker (1/2 pack per day) Substance Use Type: Alcohol (occasional), Marijuana (h/o) - Medications Home Medications: Home Medications Medication Instructions Recorded Confirmed Last Taken Type Amoxicillin/K Clav Tab [Augmentin 1 tab PO Q12H #14 tablet 12/10/14 Unknown Rx 875MG] HYDROcodone/APAP 5-325 [[place] 1 each PO Q6HR PRN #12 tablet 12/10/14 Unknown Rx 5/325] Amoxicillin/K Clav Tab [Augmentin 1 tab PO Q12HR #20 tab 05/16/15 Unknown Rx 875MG TAB] Ibuprofen [Motrin 800 MG tab] 800 mg PO TID PRN #20 tablet 05/24/15 Unknown Rx Loratadine/Pseudoephedrine 1 each PO Q12H #20 tablet 05/24/15 Unknown Rx [Claritin-D 12HR] Benzonatate [Tessalon Perles] 100 mg PO Q8HR #20 capsule 05/31/15 Unknown Rx Mometasone Furoate [Nasonex] 2 spray NS QDAY #1 bottle 05/31/15 Unknown Rx Acetaminophen/Codeine [Tylenol 1 tab PO Q6H PRN #12 tab 01/17/17 Unknown Rx /Codeine # 3 tab] Amoxicillin 500 mg PO TID #30 capsule 01/17/17 Unknown Rx Diclofenac Sodium 75 mg PO BID #20 tablet. 01/17/17 Unknown Rx Acetaminophen with Codeine 1 each PO Q6HR PRN #30 tablet 03/08/17 Unknown Rx [Acetaminophen-Codeine #4 TAB] Dicyclomine [Bentyl] 20 mg PO QID PRN #12 tablet 03/27/17 Unknown Rx Promethazine [Phenergan TAB] 25 mg PO Q8HR PRN #12 tab 03/27/17 Unknown Rx Acetaminophen/Codeine [Tylenol 1 tab PO Q6H PRN #14 tab 04/29/17 Unknown Rx /Codeine # 3 tab] Esomeprazole Magnesium [NexIUM] 40 mg PO QDAY #30 capsule. 04/29/17 Unknown Rx Ondansetron [Zofran Odt] 4 mg PO Q4-6H PRN #14 tab.rapdis 04/29/17 Unknown Rx Promethazine [Phenergan 6.25 mg/5 10 ml PO Q6H PRN #120 ml 06/02/17 Unknown Rx ml ORAL LIQ] Ibuprofen [Motrin 600 MG tab] 600 mg PO Q8H PRN #30 tablet 06/04/17 Unknown Rx Azithromycin [Zithromax Z-VIANCA] 250 mg PO DAILY #6 tablet 06/20/17 Unknown Rx Benzonatate [Tessalon Perles] 100 mg PO Q8HR #30 capsule 06/20/17 Unknown Rx Lidocaine Viscous 2% 15 ml MM Q6H 10 Days 06/20/17 Unknown Rx traMADol [Ultram] 50 mg PO Q6HR PRN #20 tablet 07/05/17 Unknown Rx ED Review of Systems ROS: Stated complaint: ABD PAIN/TOOTHACHE Other details as noted in HPI Comment: All other systems reviewed and negative Constitutional: denies: chills, fever Eyes: denies: eye pain, eye discharge, vision change ENT: dental pain Respiratory: denies: cough, shortness of breath, wheezing Cardiovascular: denies: chest pain, palpitations Endocrine: no symptoms reported Gastrointestinal: abdominal pain, nausea, vomiting. denies: diarrhea Genitourinary: denies: urgency, dysuria Musculoskeletal: denies: back pain, joint swelling, arthralgia Skin: denies: rash, lesions Neurological: denies: weakness, paresthesias Psychiatric: denies: anxiety, depression Hematological/Lymphatic: denies: easy bleeding, easy bruising Physical Exam - Physical Exam Vital Signs: Vital Signs 07/05/17 05:36 Temperature 98.2 F Pulse Rate 56 L Respiratory 18 Rate Blood Pressure 106/67 O2 Sat by Pulse 96 Oximetry Physical Exam: GENERAL: The patient is well-developed well-nourished male lying on stretcher not appearing to be in acute distress. [] HEENT: Normocephalic. Atraumatic. Extraocular motions are intact. Patient has moist mucous membranes. No gingival erythema or teeth eruption noted. Oropharynx clear NECK: Supple. No meningitic signs are noted. Trachea midline CHEST/LUNGS: Clear to auscultation. There is no respiratory distress noted. HEART/CARDIOVASCULAR: Regular. There is no tachycardia. There is no gallop rub or murmur. ABDOMEN: Abdomen is soft, with mild discomfort to palpation in the suprapubic region. There is no rebound or guarding. Patient has normal bowel sounds. There is no abdominal distention. SKIN: There is no rash. There is no edema. There is no diaphoresis. NEURO: The patient is awake, alert, and oriented. The patient is cooperative. The patient has normal speech MUSCULOSKELETAL: There is no evidence of acute injury. ED Course Vital Signs 07/05/17 05:36 Temperature 98.2 F Pulse Rate 56 L Respiratory 18 Rate Blood Pressure 106/67 O2 Sat by Pulse 96 Oximetry ED Medical Decision Making - Lab Data Result diagrams: 07/05/17 08:21 07/05/17 08:21 Laboratory Tests 07/05/17 07/05/17 07/05/17 06:07 08:21 08:21 WBC 8.3 RBC 5.88 H Hgb 17.9 H Hct 53.4 H MCV 91 MCH 30 MCHC 34 RDW 14.4 Plt Count 227 Lymph % (Auto) 34.5 [place] % (Auto) 5.9 Eos % (Auto) 4.3 Baso % (Auto) 1.0 Lymph # 2.9 [place] # 0.5 Eos # 0.4 Baso # 0.1 Seg Neutrophils % 54.3 Seg Neutrophils # 4.5 Carbon Dioxide 28 BUN 17 Creatinine 0.8 Estimated GFR > 60 BUN/Creatinine Ratio 21.25 Glucose 74 L Calcium 9.6 Total Bilirubin 0.40 AST 20 ALT 15 Alkaline Phosphatase 26 L Total Protein 7.5 Albumin 4.2 Albumin/Globulin Ratio 1.3 Lipase 26 Urine Color Straw Urine Turbidity Clear Urine pH 7.0 Ur Specific [place] 1.005 Urine Protein <15 mg/dl Urine Glucose (UA) Neg Urine Ketones Neg Urine Blood Neg Urine Nitrite Neg Urine Bilirubin Neg Urine Urobilinogen < 2.0 Ur Leukocyte Esterase Neg Urine WBC (Auto) 2.0 Urine RBC (Auto) 1.0 Sodium 139, potassium 3.6, chloride 97.9 - Radiology Data Radiology results: report reviewed (CT abdomen and pelvis), image reviewed (CT abdomen and pelvis) CT abdomen and pelvis (read by radiologist)- questionable bladder wall correlate for cystitis otherwise negative - Differential Diagnosis dental pain, UTI, diverticulitis, food borne illness Critical care attestation.: If time is entered above; I have spent that time in minutes in the direct care of this critically ill patient, excluding procedure time. ED Disposition Clinical Impression: Abdominal pain, acute, Nausea, Pain, dental Disposition: TO HOME OR SELFCARE Is pt being admited?: No Does the pt Need Aspirin: No Condition: Stable Instructions: Toothache (ED) Additional Instructions: Return to the emergency department immediately should you develop worsening symptoms, fever, inability to tolerate food or liquid or any other concerns. Prescriptions: traMADol [Ultram] 50 mg PO Q6HR PRN #20 tablet PRN Reason: Pain Referrals: [facility] [Outside] - 3-5 Days [facility] [Outside] - 3-5 Days Time of Disposition: 10:13
[2017-07-05 09:15] LABS: Alanine Aminotransferase 15 units/L (7-56); Albumin 4.2 g/dL (3.9-5); Albumin/Globulin Ratio 1.3 %; Alkaline Phosphatase 26 units/L (35-129); Anion Gap 17 mmol/L; BUN/Creatinine Ratio 21.25; Blood Urea Nitrogen 17 mg/dL (9-20); Calcium 9.6 mg/dL (8.4-10.2); Carbon Dioxide 28 mmol/L (22-30); Chloride 97.9 mmol/L (98-107); Glucose 74 mg/dL (75-100); Lipase 26 units/L (13-60); Potassium 3.6 mmol/L (3.6-5.0); Sodium 139 mmol/L (137-145); Total Protein 7.5 g/dL (6.3-8.2)
[2017-07-05] MEDS ORDERED: NACL ONE (09:39)
--- NOTE | 2017-07-05 10:02 | Cat Scan Report ---
CT SCAN OF THE ABDOMEN AND PELVIS WITH CONTRAST: HISTORY: Lower abdominal pain, nausea and vomiting. TECHNIQUE: Helical CT in 1.25mm intervals following IV contrast. Sagittal and coronal reconstructions. FINDINGS: The liver is normal in size and is without focal defect. No gallstones or biliary dilatation are noted. The spleen and pancreas demonstrate a normal size and attenuation with no evidence of abnormal mass. The kidneys are normal in size and position with no evidence of hydronephrosis or mass. The adrenal glands are normal. There is no intestinal obstruction or ascites. Normal appendix. The abdominal aorta is normal. No abnormalities are identified within the retroperitoneum or mesentery. There is no evidence of peritoneal air or fluid. There is no evidence of any abnormal masses or fluid collections within the pelvis. No adenopathy is identified. The bladder is poorly distended. There is suggestion of mild bladder wall thickening. Correlate for cystitis. IMPRESSION: Questionable mild bladder wall thickening. Correlate for cystitis. Otherwise, unremarkable exam of the abdomen and pelvis. No significant change since 03/27/17.
[2017-07-05 10:24] VITALS: BP 128/70
== END 2017-07-05 11:01 | disposition home or self-care (01) ==
LOC: ED 05:23
DX: R10.9 Unspecified abdominal pain (principal); K08.89 Other specified disorders of teeth and supporting structures; R11.2 Nausea with vomiting, unspecified; F17.200 Nicotine dependence, unspecified, uncomplicated; F12.10 Cannabis abuse, uncomplicated
CPT/HCPCS: 36415; 74177; 80053; 81001; 83690; 85025; 96374; 96375; 99284; J1885; J2405; Q9967

== ENCOUNTER 2017-07-31 05:55 | Emergency (ER) | payer MEDICAID ==
[2017-07-31 07:32] LABS: Basophils % (Auto) 0.6 % (0.0-1.8); Eosinophils % (Auto) 3.1 % (0.0-4.3); Hematocrit 50.4 % (35.5-45.6); Hemoglobin 16.8 gm/dl (11.8-15.2); Mean Corpuscular HGB Conc 33 % (32-34); Mean Corpuscular Hemoglobin 30 pg (28-32); Mean Corpuscular Volume 91 fl (84-94); Platelet Count 286 K/mm3 (140-440); Red Blood Count 5.56 M/mm3 (3.65-5.03); White Blood Count 8.9 K/mm3 (4.5-11.0)
[2017-07-31 07:34] LABS: Alanine Aminotransferase 161 units/L (7-56); Albumin 4.1 g/dL (3.9-5); Alkaline Phosphatase 29 units/L (35-129); Anion Gap 19 mmol/L; BUN/Creatinine Ratio 19; Blood Urea Nitrogen 25 mg/dL (9-20); Calcium 9.6 mg/dL (8.4-10.2); Carbon Dioxide 28 mmol/L (22-30); Chloride 94.1 mmol/L (98-107); Glucose 77 mg/dL (75-100); Lipase 33 units/L (13-60); Sodium 138 mmol/L (137-145); Total Protein 8.3 g/dL (6.3-8.2)
[2017-07-31 09:58] VITALS: BP 122/79
--- NOTE | 2017-07-31 10:40 | Emergency Department Report ---
ED General Adult HPI - General Chief complaint: Abdominal Pain Stated complaint: FLU Time Seen by Provider: 07/31/17 10:34 Source: patient Mode of arrival: Ambulatory Limitations: No Limitations - History of Present Illness Initial comments: Patient presents for a variety of symptoms. However his chief complaint is that he ran out of Lortab. He had apparently 4 molars removed on July 23. He states that he in addition has had a dry cough has been sneezing and has had nausea and vomiting. He denies any abdominal pain. He denies diarrhea. He denies recent fever or shortness of breath. His pulse oximetry is 100%. Patient had screening labs prior to my arrival. He has elevated transaminases. When asked concerning his medical history he is extremely defensive and guarded. He will not answer questions concerning prior HIV testing other than that it has been done in the past. He states that he cannot have liver disease because they treated it at [facility]. Then just few minutes later he states that he received treatment in [facility]. He does admit to a history of hepatitis C although it appears to be under great duress. Indeed, despite explaining to him the need for evaluating his past medical history, he is very resentful upon any questioning concerning routine past medical history. He states he is taking amoxicillin for his dental procedure but not prednisone. The patient is in no distress at this time. He has not been vomiting in the emergency department. He states that he was given Phenergan at [facility] for his symptoms in the past. He will not state when he was seen at [facility]. It would appear that his goal is mainly to receive Lortab. He is giving variable history as to whether or not he is being followed at a GI clinic anywhere. First he states that he was at [facility]. Then just minutes later he denies this. At this time he is not violent, suicidal, rational or hallucinating. He just basically uncooperative. -: week(s) Consistency: intermittent, now resolved Improves with: none Worsens with: none Associated Symptoms: denies other symptoms, nausea/vomiting (but not recentno recent) - Related Data Previous Rx's Medication Instructions Recorded Last Taken Type Amoxicillin/K Clav Tab [Augmentin 1 tab PO Q12H #14 tablet 12/10/14 Unknown Rx 875MG] HYDROcodone/APAP 5-325 [[place] 1 each PO Q6HR PRN #12 tablet 12/10/14 Unknown Rx 5/325] Amoxicillin/K Clav Tab [Augmentin 1 tab PO Q12HR #20 tab 05/16/15 Unknown Rx 875MG TAB] Ibuprofen [Motrin 800 MG tab] 800 mg PO TID PRN #20 tablet 05/24/15 Unknown Rx Loratadine/Pseudoephedrine 1 each PO Q12H #20 tablet 05/24/15 Unknown Rx [Claritin-D 12HR] Benzonatate [Tessalon Perles] 100 mg PO Q8HR #20 capsule 05/31/15 Unknown Rx Mometasone Furoate [Nasonex] 2 spray NS QDAY #1 bottle 05/31/15 Unknown Rx Acetaminophen/Codeine [Tylenol 1 tab PO Q6H PRN #12 tab 01/17/17 Unknown Rx /Codeine # 3 tab] Amoxicillin 500 mg PO TID #30 capsule 01/17/17 Unknown Rx Diclofenac Sodium 75 mg PO BID #20 tablet. 01/17/17 Unknown Rx Acetaminophen with Codeine 1 each PO Q6HR PRN #30 tablet 03/08/17 Unknown Rx [Acetaminophen-Codeine #4 TAB] Dicyclomine [Bentyl] 20 mg PO QID PRN #12 tablet 03/27/17 Unknown Rx Promethazine [Phenergan TAB] 25 mg PO Q8HR PRN #12 tab 03/27/17 Unknown Rx Acetaminophen/Codeine [Tylenol 1 tab PO Q6H PRN #14 tab 04/29/17 Unknown Rx /Codeine # 3 tab] Esomeprazole Magnesium [NexIUM] 40 mg PO QDAY #30 capsule. 04/29/17 Unknown Rx Ondansetron [Zofran Odt] 4 mg PO Q4-6H PRN #14 tab.rapdis 04/29/17 Unknown Rx Promethazine [Phenergan 6.25 mg/5 10 ml PO Q6H PRN #120 ml 06/02/17 Unknown Rx ml ORAL LIQ] Ibuprofen [Motrin 600 MG tab] 600 mg PO Q8H PRN #30 tablet 06/04/17 Unknown Rx Azithromycin [Zithromax Z-VIANCA] 250 mg PO DAILY #6 tablet 06/20/17 Unknown Rx Benzonatate [Tessalon Perles] 100 mg PO Q8HR #30 capsule 06/20/17 Unknown Rx Lidocaine Viscous 2% 15 ml MM Q6H 10 Days 06/20/17 Unknown Rx traMADol [Ultram] 50 mg PO Q6HR PRN #20 tablet 07/05/17 Unknown Rx Magnesium Oxide 400 mg PO QDAY #7 tablet 07/31/17 Unknown Rx Ondansetron [Zofran Odt] 4 mg PO Q6H PRN #10 tab.rapdis 07/31/17 Unknown Rx Potassium Chloride [K-Dur] 10 meq PO QDAY #7 tablet 07/31/17 Unknown Rx traMADol [Ultram] 50 mg PO Q6HR PRN #14 tablet 07/31/17 Unknown Rx Allergies Allergy/AdvReac Type Severity Reaction Status Date / Time prednisone Allergy Unknown Verified 03/08/17 12:30 ED Review of Systems ROS: Stated complaint: FLU Other details as noted in HPI Constitutional: denies: chills, fever Eyes: denies: eye pain, eye discharge, vision change ENT: as per HPI, other (complains of soreness in the molar area). denies: ear pain, throat pain Respiratory: denies: cough, shortness of breath, wheezing Cardiovascular: denies: chest pain, palpitations Endocrine: no symptoms reported Gastrointestinal: as per HPI, nausea, vomiting. denies: abdominal pain, diarrhea Genitourinary: denies: urgency, dysuria Musculoskeletal: denies: back pain, joint swelling, arthralgia Skin: denies: rash, lesions Neurological: denies: headache, weakness, paresthesias Psychiatric: denies: anxiety, depression Hematological/Lymphatic: denies: easy bleeding, easy bruising ED Past Medical Hx - Past Medical History Previous Medical History?: Yes Hx Psychiatric Treatment: No Additional medical history: seasonal allergies ,[place], heart murmur - Surgical History Past Surgical History?: Yes Additional Surgical History: SINUS SURGERY - Social History Smoking Status: Never Smoker - Medications Home Medications: Home Medications Medication Instructions Recorded Confirmed Last Taken Type Amoxicillin/K Clav Tab [Augmentin 1 tab PO Q12H #14 tablet 12/10/14 Unknown Rx 875MG] HYDROcodone/APAP 5-325 [[place] 1 each PO Q6HR PRN #12 tablet 12/10/14 Unknown Rx 5/325] Amoxicillin/K Clav Tab [Augmentin 1 tab PO Q12HR #20 tab 05/16/15 Unknown Rx 875MG TAB] Ibuprofen [Motrin 800 MG tab] 800 mg PO TID PRN #20 tablet 05/24/15 Unknown Rx Loratadine/Pseudoephedrine 1 each PO Q12H #20 tablet 05/24/15 Unknown Rx [Claritin-D 12HR] Benzonatate [Tessalon Perles] 100 mg PO Q8HR #20 capsule 05/31/15 Unknown Rx Mometasone Furoate [Nasonex] 2 spray NS QDAY #1 bottle 05/31/15 Unknown Rx Acetaminophen/Codeine [Tylenol 1 tab PO Q6H PRN #12 tab 01/17/17 Unknown Rx /Codeine # 3 tab] Amoxicillin 500 mg PO TID #30 capsule 01/17/17 Unknown Rx Diclofenac Sodium 75 mg PO BID #20 tablet. 01/17/17 Unknown Rx Acetaminophen with Codeine 1 each PO Q6HR PRN #30 tablet 03/08/17 Unknown Rx [Acetaminophen-Codeine #4 TAB] Dicyclomine [Bentyl] 20 mg PO QID PRN #12 tablet 03/27/17 Unknown Rx Promethazine [Phenergan TAB] 25 mg PO Q8HR PRN #12 tab 03/27/17 Unknown Rx Acetaminophen/Codeine [Tylenol 1 tab PO Q6H PRN #14 tab 04/29/17 Unknown Rx /Codeine # 3 tab] Esomeprazole Magnesium [NexIUM] 40 mg PO QDAY #30 capsule. 04/29/17 Unknown Rx Ondansetron [Zofran Odt] 4 mg PO Q4-6H PRN #14 tab.rapdis 04/29/17 Unknown Rx Promethazine [Phenergan 6.25 mg/5 10 ml PO Q6H PRN #120 ml 06/02/17 Unknown Rx ml ORAL LIQ] Ibuprofen [Motrin 600 MG tab] 600 mg PO Q8H PRN #30 tablet 06/04/17 Unknown Rx Azithromycin [Zithromax Z-VIANCA] 250 mg PO DAILY #6 tablet 06/20/17 Unknown Rx Benzonatate [Tessalon Perles] 100 mg PO Q8HR #30 capsule 06/20/17 Unknown Rx Lidocaine Viscous 2% 15 ml MM Q6H 10 Days 06/20/17 Unknown Rx traMADol [Ultram] 50 mg PO Q6HR PRN #20 tablet 07/05/17 Unknown Rx Magnesium Oxide 400 mg PO QDAY #7 tablet 07/31/17 Unknown Rx Ondansetron [Zofran Odt] 4 mg PO Q6H PRN #10 tab.rapdis 07/31/17 Unknown Rx Potassium Chloride [K-Dur] 10 meq PO QDAY #7 tablet 07/31/17 Unknown Rx traMADol [Ultram] 50 mg PO Q6HR PRN #14 tablet 07/31/17 Unknown Rx ED Physical Exam - General Limitations: No Limitations General appearance: alert, in no apparent distress - Head Head exam: Present: atraumatic, normocephalic - Eye Eye exam: Present: normal appearance, PERRL, EOMI. Absent: scleral icterus - ENT ENT exam: Present: mucous membranes moist, other (examination of the mouth shows no signs of infection. The patient has no trismus. He has normal mouth opening. I do not see any signs of infection.) - Neck Neck exam: Present: normal inspection - Respiratory Respiratory exam: Present: normal lung sounds bilaterally. Absent: respiratory distress - Cardiovascular Cardiovascular Exam: Present: regular rate, normal rhythm. Absent: systolic murmur, diastolic murmur, rubs, gallop - GI/Abdominal GI/Abdominal exam: Present: soft, normal bowel sounds. Absent: distended, tenderness, guarding, rebound, rigid - Rectal Rectal exam: Present: deferred - Extremities Exam Extremities exam: Present: normal inspection - Back Exam Back exam: Present: normal inspection - Neurological Exam Neurological exam: Present: alert, oriented X3, CN II-XII intact. Absent: motor sensory deficit - Psychiatric Psychiatric exam: Present: normal affect, normal mood - Skin Skin exam: Present: warm, dry, intact, normal color. Absent: rash ED Course Vital Signs 07/31/17 07/31/17 07/31/17 05:58 06:50 09:57 Temperature 97.8 F 97.8 F 97.8 F Pulse Rate 73 68 55 L Respiratory 18 18 Rate Blood Pressure 117/75 117/75 Blood Pressure 122/79 [Right] O2 Sat by Pulse 95 100 99 Oximetry - Reevaluation(s) Reevaluation #1: Patient will be given Zofran, potassium and a liter of IV fluid. He is appropriate for outpatient referral and follow-up. 07/31/17 10:42 07/31/17 10:43 Reevaluation #2: Nursing informs me that the patient refused IV fluid. He will be discharged. He is encouraged to increase his oral fluid. He is given appropriate referrals. He states that he just wants a prescription for Lortab. This will not be given in view of his likely chronic hepatitis C. He is requesting discharge. 07/31/17 11:06 07/31/17 11:07 ED Medical Decision Making - Lab Data Result diagrams: 07/31/17 07:01 07/31/17 07:01 Laboratory Results - last 24 hr 07/31/17 07/31/17 07:01 07:01 WBC 8.9 RBC 5.56 H Hgb 16.8 H Hct 50.4 H MCV 91 MCH 30 MCHC 33 RDW 14.0 Plt Count 286 Lymph % (Auto) 25.9 [place] % (Auto) 6.4 Eos % (Auto) 3.1 Baso % (Auto) 0.6 Lymph # 2.3 [place] # 0.6 Eos # 0.3 Baso # 0.1 Seg Neutrophils % 64.0 Seg Neutrophils # 5.7 Sodium 138 Potassium 3.0 L Chloride 94.1 L Carbon Dioxide 28 Anion Gap 19 BUN 25 H Creatinine 1.3 Estimated GFR > 60 BUN/Creatinine Ratio 19 Glucose 77 Calcium 9.6 Total Bilirubin 0.40 AST 111 H ALT 161 H Alkaline Phosphatase 29 L Total Protein 8.3 H Albumin 4.1 Albumin/Globulin Ratio 1.0 Lipase 33 Critical care attestation.: If time is entered above; I have spent that time in minutes in the direct care of this critically ill patient, excluding procedure time. ED Disposition Clinical Impression: Hypokalemia, Chronic liver disease, Volume depletion Disposition: DC-01 TO HOME OR SELFCARE Is pt being admited?: No Does the pt Need Aspirin: No Condition: Stable Instructions: Dehydration (ED), Acute Nausea and Vomiting (ED), Hypokalemia (ED ) Additional Instructions: Further evaluation by a liver specialist is recommended. Follow-up by primary care is essential. See referrals. Rx given. Prescriptions: Magnesium Oxide 400 mg PO QDAY #7 tablet Ondansetron [Zofran Odt] 4 mg PO Q6H PRN #10 tab.rapdis PRN Reason: Nausea Potassium Chloride [K-Dur] 10 meq PO QDAY #7 tablet traMADol [Ultram] 50 mg PO Q6HR PRN #14 tablet PRN Reason: Pain Referrals: PRIMARY CARE, [Primary Care Provider] - 3-5 Days [facility] [Provider Group] - 3-5 Days [facility] [Provider Group] - 2-3 Days Time of Disposition: 11:09
[2017-07-31] MEDS ORDERED: NACL 0.9% 1000 ML 1,000 ML IV ONE (10:44)
[2017-07-31] MEDS ORDERED: K-DUR PO ONE (10:44)
[2017-07-31] MEDS ORDERED: ULTRAM PO ONE (10:45)
[2017-07-31] MEDS ORDERED: ZOFRAN ODT PO ONE (10:46)
== END 2017-07-31 11:40 | disposition home or self-care (01) ==
LOC: ED 05:55
DX: E87.6 Hypokalemia (principal); K76.9 Liver disease, unspecified; E86.9 Volume depletion, unspecified; Z88.8 Allergy status to other drugs, medicaments and biological substances
CPT/HCPCS: 36415; 80053; 83690; 83735; 85025; 99283

== ENCOUNTER 2017-10-10 07:55 | Emergency (ER) | payer MEDICAID ==
[2017-10-10 08:35] VITALS: BP 117/69
[2017-10-10] MEDS ORDERED: TYLENOL/CODEINE PO ONE (09:54)
--- NOTE | 2017-10-10 10:05 | Emergency Department Report ---
HPI - General Chief Complaint: Upper Respiratory Infection Time Seen by Provider: 10/10/17 09:16 - HPI HPI: This is 37-year-old male presents to ED complaining of cough, runny nose congestion 2 weeks. Patient states his cough is productive with yellow mucus. Patient states cough is intermittent and causes chest pain with coughing episodes. Patient states he has had similar symptoms 3 months ago and was treated. Patient states she has not been around sick contacts. He denies fevers his chills/nausea/vomiting symptoms S chest pain/shortness of breath/dizziness or headache ED Past Medical Hx - Past Medical History Previous Medical History?: Yes Hx Psychiatric Treatment: No Additional medical history: seasonal allergies ,[place], heart murmur - Surgical History Past Surgical History?: Yes Additional Surgical History: SINUS SURGERY - Social History Smoking Status: Current Every Day Smoker Substance Use Type: None - Medications Home Medications: Home Medications Medication Instructions Recorded Confirmed Last Taken Type Amoxicillin/K Clav Tab [Augmentin 1 tab PO Q12H #14 tablet 12/10/14 Unknown Rx 875MG] HYDROcodone/APAP 5-325 [[place] 1 each PO Q6HR PRN #12 tablet 12/10/14 Unknown Rx 5/325] Benzonatate [Tessalon Perles] 100 mg PO Q8HR #20 capsule 05/31/15 Unknown Rx Mometasone Furoate [Nasonex] 2 spray NS QDAY #1 bottle 05/31/15 Unknown Rx Acetaminophen/Codeine [Tylenol 1 tab PO Q6H PRN #12 tab 01/17/17 Unknown Rx /Codeine # 3 tab] Amoxicillin 500 mg PO TID #30 capsule 01/17/17 Unknown Rx Diclofenac Sodium 75 mg PO BID #20 tablet. 01/17/17 Unknown Rx Acetaminophen with Codeine 1 each PO Q6HR PRN #30 tablet 03/08/17 Unknown Rx [Acetaminophen-Codeine #4 TAB] Dicyclomine [Bentyl] 20 mg PO QID PRN #12 tablet 03/27/17 Unknown Rx Promethazine [Phenergan TAB] 25 mg PO Q8HR PRN #12 tab 03/27/17 Unknown Rx Acetaminophen/Codeine [Tylenol 1 tab PO Q6H PRN #14 tab 04/29/17 Unknown Rx /Codeine # 3 tab] Esomeprazole Magnesium [NexIUM] 40 mg PO QDAY #30 capsule. 04/29/17 Unknown Rx Ondansetron [Zofran Odt] 4 mg PO Q4-6H PRN #14 tab.rapdis 04/29/17 Unknown Rx Promethazine [Phenergan 6.25 mg/5 10 ml PO Q6H PRN #120 ml 06/02/17 Unknown Rx ml ORAL LIQ] Ibuprofen [Motrin 600 MG tab] 600 mg PO Q8H PRN #30 tablet 06/04/17 Unknown Rx Lidocaine Viscous 2% 15 ml MM Q6H 10 Days udc 06/20/17 Unknown Rx traMADol [Ultram] 50 mg PO Q6HR PRN #20 tablet 07/05/17 Unknown Rx Magnesium Oxide 400 mg PO QDAY #7 tablet 07/31/17 Unknown Rx Ondansetron [Zofran Odt] 4 mg PO Q6H PRN #10 tab.rapdis 07/31/17 Unknown Rx Potassium Chloride [K-Dur] 10 meq PO QDAY #7 tablet 07/31/17 Unknown Rx traMADol [Ultram] 50 mg PO Q6HR PRN #14 tablet 07/31/17 Unknown Rx Acetamin/Codeine 120-12Mg/5 ml 5 ml PO TID PRN #60 ml 10/10/17 Unknown Rx [Tylenol/Codeine] Amoxicillin/K Clav Tab [Augmentin 1 tab PO Q12HR #20 tab 10/10/17 Unknown Rx 875MG TAB] Benzonatate [Tessalon Perles] 100 mg PO Q8HR #30 capsule 10/10/17 Unknown Rx Cetirizine HCl [Zyrtec] 10 mg PO DAILY #24 tablet 10/10/17 Unknown Rx Ibuprofen [Motrin 800 MG tab] 800 mg PO TID PRN #20 tablet 10/10/17 Unknown Rx ED Review of Systems ROS: Stated complaint: FLU LIKE SYMPTOMS Other details as noted in HPI Constitutional: denies: chills, fever Eyes: denies: eye pain, eye discharge, vision change ENT: throat pain, congestion. denies: ear pain Respiratory: cough. denies: shortness of breath, wheezing Cardiovascular: denies: chest pain, palpitations Endocrine: no symptoms reported Gastrointestinal: denies: abdominal pain, nausea, diarrhea Genitourinary: denies: urgency, dysuria Musculoskeletal: denies: back pain, joint swelling, arthralgia Skin: denies: rash, lesions Neurological: denies: headache, weakness, paresthesias Psychiatric: denies: anxiety, depression Hematological/Lymphatic: denies: easy bleeding, easy bruising Physical Exam - Physical Exam Vital Signs: Vital Signs 10/10/17 08:24 Temperature 97.5 F L Pulse Rate 72 Respiratory 22 Rate Blood Pressure 117/69 Blood Pressure 117/69 [Left] O2 Sat by Pulse 97 Oximetry Physical Exam: GENERAL: Alert and oriented x3, no apparent distress, Normal Gait, atraumatic. HEAD: Head is normocephalic and a-traumatic. EYES: Extra ocular muscles are intact. Pupils are equal, round, and reactive to light and accommodation. EARS: symetrical, atraumatic, non tender, ear canal clear and moderate cerumen, tympanic membrance non inflamed. gross auditory nml bilaterally. NOSE: Nose symetrical, Nontender,Nares appeared normal. MOUTH:Mouth is well hydrated and without lesions. Tonsils nonerythematous or swollen, Uvula midline, Tongue not elevated. Mucous membranes are moist. Posterior pharynx clear, no exudate or lesions. Patent airways. NECK: Supple. Non edematous. No lymphadenopathy or thyromegaly. No C-spine tenderness LUNGS: Symetrical with respiration, No wheezing, no rales or crackles, CTAB. HEART: S1, S2 present, regular rate and rhythm without murmur, no rubs, no gallops. Non tender to palpation BACK: Full range of motion, no spinal tenderness, nontender to palpation. NEUROLOGIC: The patient is cooperative with no focal neurologic deficits SKIN: Warm and dry, No lesions, No ulceration or induration present. ED Course Vital Signs 10/10/17 08:24 Temperature 97.5 F L Pulse Rate 72 Respiratory 22 Rate Blood Pressure 117/69 Blood Pressure 117/69 [Left] O2 Sat by Pulse 97 Oximetry ED Medical Decision Making - Radiology Data Radiology results: report reviewed, image reviewed PA and lateral chest: Cough There is a well-circumscribed small nodule in the right midlung. There are diminished bronchovascular markings in the right upper lung. The lungs otherwise appear generally clear. Mediastinal contour is unremarkable. These findings are unchanged compared to May 2015. Impression: Right pulmonary granuloma. 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 No acute finding. Transcribed By: RMCandace Dictated By: MACO ARTEAGA MD Electronically Authenticated By: MACO ARTEAGA MD Signed Date/Time: 10/10/17 1104 - Medical Decision Making 37-year-old male presented upper respiratory infection w bronchitis ED course: Patient received Tylenol with Codeine in ED Chest x-ray ordered, shows chronic lung disease. I discussed this with the patient to follow up with her primary care physician regarding his chronic lung findings an x-ray. I discussed the patient to follow up with primary care physician in 3-5 days. I discussed the patient to take prescription as prescribed. Patient states he does not want azithromycin as he was given that last time and did not make him feel well. Augmentin antibiotics given instead Patient has asked for a prescription of allergy to medication. Patient is in no acute distress. Or respiratory distress. Vital signs are normal. Patient understands to follow-up with primary care physician. Critical care attestation.: If time is entered above; I have spent that time in minutes in the direct care of this critically ill patient, excluding procedure time. ED Disposition Clinical Impression: Bronchitis URI (upper respiratory infection) Qualifiers: URI type: unspecified URI Qualified Code(s): J06.9 - Acute upper respiratory infection, unspecified Disposition: DC-01 TO HOME OR SELFCARE Is pt being admited?: No Does the pt Need Aspirin: No Condition: Stable Instructions: Upper Respiratory Infection (ED), Chronic Bronchitis (ED) Additional Instructions: Make sure to follow up with the primary care physician as discussed. Take all your medications as you've been prescribed. If you have any worsening symptoms or develop new symptoms please return to ED immediately. Prescriptions: Acetamin/Codeine 120-12Mg/5 ml [Tylenol/Codeine] 5 ml PO TID PRN #60 ml PRN Reason: Pain Amoxicillin/K Clav Tab [Augmentin 875MG TAB] 1 tab PO Q12HR #20 tab Benzonatate [Tessalon Perles] 100 mg PO Q8HR #30 capsule Cetirizine HCl [Zyrtec] 10 mg PO DAILY #24 tablet Ibuprofen [Motrin 800 MG tab] 800 mg PO TID PRN #20 tablet PRN Reason: Pain Referrals: [facility] [Outside] - 3-5 Days [facility] [Outside] - 3-5 Days PRIMARY CAREMD [Primary Care Provider] - 3-5 Days JULIAN DILLON MD [Referring] - 3-5 Days CLIFF JEAN MD [Referring] - 3-5 Days Forms: Work/School Release Form(ED) Time of Disposition: 11:33
--- NOTE | 2017-10-10 11:21 | XRay Report ---
PA and lateral chest: Cough There is a well-circumscribed small nodule in the right midlung. There are diminished bronchovascular markings in the right upper lung. The lungs otherwise appear generally clear. Mediastinal contour is unremarkable. These findings are unchanged compared to May 2015. Impression: Right pulmonary granuloma. 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 No acute finding.
== END 2017-10-10 11:55 | disposition home or self-care (01) ==
LOC: ED 07:55
DX: J06.9 Acute upper respiratory infection, unspecified (principal); J40 Bronchitis, not specified as acute or chronic; F17.200 Nicotine dependence, unspecified, uncomplicated
CPT/HCPCS: 71046

== ENCOUNTER 2017-10-14 00:01 | Emergency (ER) | payer MEDICAID ==
--- NOTE | 2017-10-14 02:06 | XRay Report ---
FINAL REPORT EXAM: XR CHEST ROUTINE 2V HISTORY: cough and congestion TECHNIQUE: PA and lateral views of the chest were submitted. Comparison is made to the study of 06/20/2017. FINDINGS: The heart size and mediastinum appear normal. The lungs are clear. Pleural fluid is not seen. The bones and soft tissues do not show any acute changes. IMPRESSION: No active chest disease.
[2017-10-14 02:28] LABS: Basophils # (Auto) 0.1 K/mm3 (0.0-0.1); Basophils % (Auto) 0.7 % (0.0-1.8); Eosinophils # (Auto) 0.3 K/mm3 (0.0-0.4); Eosinophils % (Auto) 4.5 % (0.0-4.3); Hematocrit 49.4 % (35.5-45.6); Hemoglobin 16.6 gm/dl (11.8-15.2); Lymphocytes # (Auto) 2.9 K/mm3 (1.2-5.4); Lymphocytes % (Auto) 37.7 % (13.4-35.0); Mean Corpuscular HGB Conc 34 % (32-34); Mean Corpuscular Hemoglobin 30 pg (28-32); Mean Corpuscular Volume 90 fl (84-94); Monocytes # (Auto) 0.4 K/mm3 (0.0-0.8); Monocytes % (Auto) 4.9 % (0.0-7.3); Platelet Count 233 K/mm3 (140-440); Red Blood Count 5.48 M/mm3 (3.65-5.03); Red Cell Distribution Width 13.8 % (13.2-15.2)
[2017-10-14 03:31] LABS: Alanine Aminotransferase 12 units/L (7-56); Albumin 4.1 g/dL (3.9-5); BUN/Creatinine Ratio 13; Blood Urea Nitrogen 9 mg/dL (9-20); Hemolysis Index 14
[2017-10-14 03:51] LABS: Bilirubin,Direct < 0.2 mg/dL (0-0.2)
[2017-10-14] MEDS ORDERED: K-DUR PO ONE (10:01)
--- NOTE | 2017-10-14 10:01 | Emergency Department Report ---
HPI - General Chief Complaint: Upper Respiratory Infection Time Seen by Provider: 10/14/17 08:44 ED Past Medical Hx - Past Medical History Previous Medical History?: Yes Hx Psychiatric Treatment: No Additional medical history: seasonal allergies ,[place], heart murmur - Surgical History Additional Surgical History: SINUS SURGERY - Social History Smoking Status: Current Every Day Smoker - Medications Home Medications: Home Medications Medication Instructions Recorded Confirmed Last Taken Type Amoxicillin/K Clav Tab [Augmentin 1 tab PO Q12H #14 tablet 12/10/14 Unknown Rx 875MG] HYDROcodone/APAP 5-325 [[place] 1 each PO Q6HR PRN #12 tablet 12/10/14 Unknown Rx 5/325] Benzonatate [Tessalon Perles] 100 mg PO Q8HR #20 capsule 05/31/15 Unknown Rx Mometasone Furoate [Nasonex] 2 spray NS QDAY #1 bottle 05/31/15 Unknown Rx Acetaminophen/Codeine [Tylenol 1 tab PO Q6H PRN #12 tab 01/17/17 Unknown Rx /Codeine # 3 tab] Amoxicillin 500 mg PO TID #30 capsule 01/17/17 Unknown Rx Diclofenac Sodium 75 mg PO BID #20 tablet. 01/17/17 Unknown Rx Acetaminophen with Codeine 1 each PO Q6HR PRN #30 tablet 03/08/17 Unknown Rx [Acetaminophen-Codeine #4 TAB] Dicyclomine [Bentyl] 20 mg PO QID PRN #12 tablet 03/27/17 Unknown Rx Promethazine [Phenergan TAB] 25 mg PO Q8HR PRN #12 tab 03/27/17 Unknown Rx Acetaminophen/Codeine [Tylenol 1 tab PO Q6H PRN #14 tab 04/29/17 Unknown Rx /Codeine # 3 tab] Esomeprazole Magnesium [NexIUM] 40 mg PO QDAY #30 capsule. 04/29/17 Unknown Rx Ondansetron [Zofran Odt] 4 mg PO Q4-6H PRN #14 tab.rapdis 04/29/17 Unknown Rx Promethazine [Phenergan 6.25 mg/5 10 ml PO Q6H PRN #120 ml 06/02/17 Unknown Rx ml ORAL LIQ] Lidocaine Viscous 2% 15 ml MM Q6H 10 Days udc 06/20/17 Unknown Rx traMADol [Ultram] 50 mg PO Q6HR PRN #20 tablet 07/05/17 Unknown Rx Ondansetron [Zofran Odt] 4 mg PO Q6H PRN #10 tab.rapdis 07/31/17 Unknown Rx Potassium Chloride [K-Dur] 10 meq PO QDAY #7 tablet 07/31/17 Unknown Rx traMADol [Ultram] 50 mg PO Q6HR PRN #14 tablet 07/31/17 Unknown Rx Acetamin/Codeine 120-12Mg/5 ml 5 ml PO TID PRN #60 ml 10/10/17 Unknown Rx [Tylenol/Codeine] Amoxicillin/K Clav Tab [Augmentin 1 tab PO Q12HR #20 tab 10/10/17 Unknown Rx 875MG TAB] Benzonatate [Tessalon Perles] 100 mg PO Q8HR #30 capsule 10/10/17 Unknown Rx Cetirizine HCl [Zyrtec] 10 mg PO DAILY #24 tablet 10/10/17 Unknown Rx Ibuprofen [Motrin 800 MG tab] 800 mg PO TID PRN #20 tablet 10/10/17 Unknown Rx Cetirizine HCl [ZyrTEC] 10 mg PO QAM 14 Days #14 capsule 10/14/17 Unknown Rx Fluticasone [Flonase] 1 spray NS QDAY 14 Days #1 bottle 10/14/17 Unknown Rx Ibuprofen [Motrin 600 MG tab] 600 mg PO Q8H PRN 5 Days #15 tablet 10/14/17 Unknown Rx Magnesium Oxide 400 mg PO Q12H 6 Days #3 tablet 10/14/17 Unknown Rx Potassium Chloride [K-Dur] 20 meq PO BID 3 Days #6 tab 10/14/17 Unknown Rx Promethazine /Codeine 5 ml PO Q6H PRN 3 Days #60 udc 10/14/17 Unknown Rx [Phenergan/Codeine 6.25-10 mg/5Ml] ED Review of Systems ROS: Stated complaint: ABDOMINAL PAIN,COUGH,NAUSEA Other details as noted in HPI Physical Exam - Physical Exam Vital Signs: Vital Signs 10/14/17 10/14/17 00:33 01:33 Temperature 97.9 F 97 F L Pulse Rate 57 L 56 L Respiratory 18 18 Rate Blood Pressure 116/82 116/82 O2 Sat by Pulse 99 98 Oximetry ED Course Vital Signs 10/14/17 10/14/17 00:33 01:33 Temperature 97.9 F 97 F L Pulse Rate 57 L 56 L Respiratory 18 18 Rate Blood Pressure 116/82 116/82 O2 Sat by Pulse 99 98 Oximetry - Reevaluation(s) Reevaluation #1: 10/14/17 10:48 Potassium level is a 3.0 and patient was repleted with 40 mEq of potassium by mouth. Magnesium level checked and patient magnesium level is low at 1.7 therefore discussed the patient that I would like him to get some IV magnesium along with a bolus of IV fluid. Patient agrees to this. Reevaluation #2: 10/14/17 11:40 Magnesium and IV fluid completed. Patient is stable and no study has to follow up with his primary care physician in 2 days. ED Medical Decision Making - Lab Data Result diagrams: 10/14/17 02:04 10/14/17 02:04 Labs 10/14/17 10/14/17 10/14/17 02:04 02:04 02:04 WBC 7.6 RBC 5.48 H Hgb 16.6 H Hct 49.4 H MCV 90 MCH 30 MCHC 34 RDW 13.8 Plt Count 233 Lymph % (Auto) 37.7 H Baxter % (Auto) 4.9 Eos % (Auto) 4.5 H Baso % (Auto) 0.7 Lymph # 2.9 Baxter # 0.4 Eos # 0.3 Baso # 0.1 Seg Neutrophils % 52.2 Seg Neutrophils # 4.0 VBG pH 7.306 L Sodium Potassium Chloride Carbon Dioxide Anion Gap BUN Creatinine Estimated GFR BUN/Creatinine Ratio Glucose Lactic Acid 0.90 Calcium Magnesium Total Bilirubin Direct Bilirubin AST ALT Alkaline Phosphatase Total Protein Albumin Albumin/Globulin Ratio 10/14/17 10/14/17 02:04 02:04 WBC RBC Hgb Hct MCV MCH MCHC RDW Plt Count Lymph % (Auto) Baxter % (Auto) Eos % (Auto) Baso % (Auto) Lymph # Baxter # Eos # Baso # Seg Neutrophils % Seg Neutrophils # VBG pH Sodium 139 Potassium 3.0 L Chloride 97.6 L Carbon Dioxide 28 Anion Gap 16 BUN 9 Creatinine 0.7 L Estimated GFR > 60 BUN/Creatinine Ratio 13 Glucose 78 Lactic Acid Calcium 9.0 Magnesium 1.50 L Total Bilirubin 0.60 Direct Bilirubin < 0.2 AST 21 ALT 12 Alkaline Phosphatase 28 L Total Protein 7.9 Albumin 4.1 Albumin/Globulin Ratio 1.1 - Radiology Data Radiology results: report reviewed Chest x-ray revealed no acute cardiopulmonary findings. Critical care attestation.: If time is entered above; I have spent that time in minutes in the direct care of this critically ill patient, excluding procedure time. ED Disposition Clinical Impression: Hypomagnesemia, Hypokalemia, Viral syndrome, Nasal congestion with rhinorrhea Nausea & vomiting Qualifiers: Vomiting type: unspecified Vomiting Intractability: non-intractable Qualified Code(s): R11.2 - Nausea with vomiting, unspecified Disposition: DC-01 TO HOME OR SELFCARE Is pt being admited?: No Does the pt Need Aspirin: No Condition: Stable Instructions: Hypokalemia (ED), Acute Nausea and Vomiting (ED), Viral Syndrome (ED), Hypomagnesemia (ED), Acute Cough (ED) Additional Instructions: Please follow-up with your primary care physician in 2 days Her magnesium and potassium level was mildly decreased and you were repleted with potassium and magnesium in emergency room. Please take magnesium and potassium supplement as prescribed. Stop taking her antibiotic as this is a viral infection and antibiotic is not needed for viral infection Increasing her fluid intake to 2-3 L of fluid per day You will need to follow-up with a primary care physician to get potassium and magnesium rechecked. Rest for 72 hours Take vitamin C and this can help to the posterior immune system Please do not drive or operate heavy machinery while taking and Phenergan with codeine as this medication causes drowsiness. This medication will help. Nausea and vomiting and also help with coughing. Prescriptions: Cetirizine HCl [ZyrTEC] 10 mg PO QAM 14 Days #14 capsule Fluticasone [Flonase] 1 spray NS QDAY 14 Days #1 bottle Ibuprofen [Motrin 600 MG tab] 600 mg PO Q8H PRN 5 Days #15 tablet PRN Reason: Pain Magnesium Oxide 400 mg PO Q12H 6 Days #3 tablet Potassium Chloride [K-Dur] 20 meq PO BID 3 Days #6 tab Promethazine /Codeine [Phenergan/Codeine 6.25-10 mg/5Ml] 5 ml PO Q6H PRN 3 Days #60 udc PRN Reason: cough Referrals: PRIMARY CARE, [Primary Care Provider] - 10/16/17 Forms: Work/School Release Form(ED)
[2017-10-14] MEDS ORDERED: MAGNESIUM SULFATE 2GM/50ML 2 GM/50 ML BAG IV ONE ×2 (10:49→10:53)
[2017-10-14] MEDS ORDERED: NACL 0.9% 1000 ML 1,000 ML IV ONE (10:49)
[2017-10-14] MEDS ORDERED: NACL 0.9% 1000 ML 1,000 ML ONE (10:53)
[2017-10-14 12:54] VITALS: BP 129/69
== END 2017-10-14 12:50 | disposition home or self-care (01) ==
LOC: ED 00:01
DX: E83.42 Hypomagnesemia (principal); E87.6 Hypokalemia; R09.81 Nasal congestion; B34.9 Viral infection, unspecified; R11.2 Nausea with vomiting, unspecified; F17.200 Nicotine dependence, unspecified, uncomplicated
CPT/HCPCS: 36415; 71046; 80053; 80074; 82140; 82805; 83735; 85025; 87116; 87400; 87430; 96365; 99284; J3475; J7030

== ENCOUNTER 2017-11-03 20:25 | Emergency (ER) | payer MEDICAID ==
[2017-11-03 21:32] VITALS: BP 126/66
[2017-11-03 21:49] LABS: Hematocrit 48.9 % (35.5-45.6); Hemoglobin 16.8 gm/dl (11.8-15.2); Mean Corpuscular HGB Conc 34 % (32-34); Mean Corpuscular Hemoglobin 31 pg (28-32); Mean Corpuscular Volume 90 fl (84-94); Platelet Count 220 K/mm3 (140-440); Red Blood Count 5.42 M/mm3 (3.65-5.03); Red Cell Distribution Width 14.6 % (13.2-15.2)
[2017-11-03 22:09] LABS: Alanine Aminotransferase 20 units/L (7-56); Albumin 4.2 g/dL (3.9-5); BUN/Creatinine Ratio 14; Blood Urea Nitrogen 10 mg/dL (9-20); Calcium 9.8 mg/dL (8.4-10.2); Hemolysis Index 23
[2017-11-03 22:16] LABS: Bilirubin,Urine NEG (Negative); Blood,Urine NEG (Negative); Color,Urine Straw (Yellow); Nitrite,Urine NEG (Negative); Protein,Urine <15 mg/dL mg/dL (Negative); Urobilinogen,Urine < 2.0 mg/dL (<2.0)
[2017-11-03 22:46] LABS: Band Neutrophils # (Manual) 0.1 K/mm3; Basophils % (Manual) 0 % (0.0-1.8); RBC Morphology Normal; Total Cells Counted 100
[2017-11-04] MEDS ORDERED: NACL 0.9% 1000 ML 1,000 ML IV ONE (10:44)
[2017-11-04] MEDS ORDERED: ZOFRAN IV ONE (10:44)
[2017-11-04] MEDS ORDERED: TORADOL IV ONE (10:44)
--- NOTE | 2017-11-04 11:40 | Emergency Department Report ---
ED Abdominal Pain HPI - General Chief Complaint: Abdominal Pain Stated Complaint: ABDOMINAL,ARM PAIN,NAUSEA Time Seen by Provider: 11/04/17 10:22 Source: patient Mode of arrival: Ambulatory Limitations: No Limitations - History of Present Illness Initial Comments: Patient is a 37-year-old [place] male who is presenting with nausea vomiting for the past 4 days. Patient also states he's had some very mild diarrhea however his main complaint is nausea vomiting. Patient also reports some epigastric discomfort as well. He is only been able to keep down some apple juice and water but no food. Patient tried eating oatmeal this morning had one bite was unable to continue. Patient states that his epigastric pain is a 9 out of 10 and radiates to his back. Patient has taken a Zofran ODT without relief. Quality: cramping, aching Consistency: constant Worsens With: eating, vomiting Associated Symptoms: nausea, vomiting, diarrhea. denies: chills, dysuria, hematemesis, hematochezia, melena, hematuria, anorexia, syncope - Related Data Previous Rx's Medication Instructions Recorded Last Taken Type Amoxicillin/K Clav Tab [Augmentin 1 tab PO Q12H #14 tablet 12/10/14 Unknown Rx 875MG] HYDROcodone/APAP 5-325 [[place] 1 each PO Q6HR PRN #12 tablet 12/10/14 Unknown Rx 5/325] Benzonatate [Tessalon Perles] 100 mg PO Q8HR #20 capsule 05/31/15 Unknown Rx Mometasone Furoate [Nasonex] 2 spray NS QDAY #1 bottle 05/31/15 Unknown Rx Acetaminophen/Codeine [Tylenol 1 tab PO Q6H PRN #12 tab 01/17/17 Unknown Rx /Codeine # 3 tab] Amoxicillin 500 mg PO TID #30 capsule 01/17/17 Unknown Rx Diclofenac Sodium 75 mg PO BID #20 tablet. 01/17/17 Unknown Rx Acetaminophen with Codeine 1 each PO Q6HR PRN #30 tablet 03/08/17 Unknown Rx [Acetaminophen-Codeine #4 TAB] Dicyclomine [Bentyl] 20 mg PO QID PRN #12 tablet 03/27/17 Unknown Rx Promethazine [Phenergan TAB] 25 mg PO Q8HR PRN #12 tab 03/27/17 Unknown Rx Acetaminophen/Codeine [Tylenol 1 tab PO Q6H PRN #14 tab 04/29/17 Unknown Rx /Codeine # 3 tab] Esomeprazole Magnesium [NexIUM] 40 mg PO QDAY #30 capsule. 04/29/17 Unknown Rx Ondansetron [Zofran Odt] 4 mg PO Q4-6H PRN #14 tab.rapdis 04/29/17 Unknown Rx Promethazine [Phenergan 6.25 mg/5 10 ml PO Q6H PRN #120 ml 06/02/17 Unknown Rx ml ORAL LIQ] Lidocaine Viscous 2% 15 ml MM Q6H 10 Days udc 06/20/17 Unknown Rx traMADol [Ultram] 50 mg PO Q6HR PRN #20 tablet 07/05/17 Unknown Rx Ondansetron [Zofran Odt] 4 mg PO Q6H PRN #10 tab.rapdis 07/31/17 Unknown Rx Potassium Chloride [K-Dur] 10 meq PO QDAY #7 tablet 07/31/17 Unknown Rx traMADol [Ultram] 50 mg PO Q6HR PRN #14 tablet 07/31/17 Unknown Rx Acetamin/Codeine 120-12Mg/5 ml 5 ml PO TID PRN #60 ml 10/10/17 Unknown Rx [Tylenol/Codeine] Amoxicillin/K Clav Tab [Augmentin 1 tab PO Q12HR #20 tab 10/10/17 Unknown Rx 875MG TAB] Benzonatate [Tessalon Perles] 100 mg PO Q8HR #30 capsule 10/10/17 Unknown Rx Cetirizine HCl [Zyrtec] 10 mg PO DAILY #24 tablet 10/10/17 Unknown Rx Ibuprofen [Motrin 800 MG tab] 800 mg PO TID PRN #20 tablet 10/10/17 Unknown Rx Cetirizine HCl [ZyrTEC] 10 mg PO QAM 14 Days #14 capsule 10/14/17 Unknown Rx Fluticasone [Flonase] 1 spray NS QDAY 14 Days #1 bottle 10/14/17 Unknown Rx Ibuprofen [Motrin 600 MG tab] 600 mg PO Q8H PRN 5 Days #15 tablet 10/14/17 Unknown Rx Magnesium Oxide 400 mg PO Q12H 6 Days #3 tablet 10/14/17 Unknown Rx Potassium Chloride [K-Dur] 20 meq PO BID 3 Days #6 tab 10/14/17 Unknown Rx Promethazine /Codeine 5 ml PO Q6H PRN 3 Days #60 udc 10/14/17 Unknown Rx [Phenergan/Codeine 6.25-10 mg/5Ml] HYDROcodone/ACETAMINOPHEN 10 ml PO Q6HR #100 solution 11/04/17 Unknown Rx [Hydrocodon-Acetamin 7.5-325/15] Sucralfate [Carafate] 1 gm PO Q6HR 10 Days udc 11/04/17 Unknown Rx Allergies Allergy/AdvReac Type Severity Reaction Status Date / Time prednisone Allergy Unknown Verified 03/08/17 12:30 trazodone Allergy Unknown Verified 11/03/17 21:33 ED Review of Systems ROS: Stated complaint: ABDOMINAL,ARM PAIN,NAUSEA Other details as noted in HPI Comment: All other systems reviewed and negative ED Past Medical Hx - Past Medical History Hx Psychiatric Treatment: No Additional medical history: seasonal allergies ,[place], heart murmur - Surgical History Additional Surgical History: SINUS SURGERY - Social History Smoking Status: Current Every Day Smoker - Medications Home Medications: Home Medications Medication Instructions Recorded Confirmed Last Taken Type Amoxicillin/K Clav Tab [Augmentin 1 tab PO Q12H #14 tablet 12/10/14 Unknown Rx 875MG] HYDROcodone/APAP 5-325 [[place] 1 each PO Q6HR PRN #12 tablet 12/10/14 Unknown Rx 5/325] Benzonatate [Tessalon Perles] 100 mg PO Q8HR #20 capsule 05/31/15 Unknown Rx Mometasone Furoate [Nasonex] 2 spray NS QDAY #1 bottle 05/31/15 Unknown Rx Acetaminophen/Codeine [Tylenol 1 tab PO Q6H PRN #12 tab 01/17/17 Unknown Rx /Codeine # 3 tab] Amoxicillin 500 mg PO TID #30 capsule 01/17/17 Unknown Rx Diclofenac Sodium 75 mg PO BID #20 tablet. 01/17/17 Unknown Rx Acetaminophen with Codeine 1 each PO Q6HR PRN #30 tablet 03/08/17 Unknown Rx [Acetaminophen-Codeine #4 TAB] Dicyclomine [Bentyl] 20 mg PO QID PRN #12 tablet 03/27/17 Unknown Rx Promethazine [Phenergan TAB] 25 mg PO Q8HR PRN #12 tab 03/27/17 Unknown Rx Acetaminophen/Codeine [Tylenol 1 tab PO Q6H PRN #14 tab 04/29/17 Unknown Rx /Codeine # 3 tab] Esomeprazole Magnesium [NexIUM] 40 mg PO QDAY #30 capsule. 04/29/17 Unknown Rx Ondansetron [Zofran Odt] 4 mg PO Q4-6H PRN #14 tab.rapdis 04/29/17 Unknown Rx Promethazine [Phenergan 6.25 mg/5 10 ml PO Q6H PRN #120 ml 06/02/17 Unknown Rx ml ORAL LIQ] Lidocaine Viscous 2% 15 ml MM Q6H 10 Days udc 06/20/17 Unknown Rx traMADol [Ultram] 50 mg PO Q6HR PRN #20 tablet 07/05/17 Unknown Rx Ondansetron [Zofran Odt] 4 mg PO Q6H PRN #10 tab.rapdis 07/31/17 Unknown Rx Potassium Chloride [K-Dur] 10 meq PO QDAY #7 tablet 07/31/17 Unknown Rx traMADol [Ultram] 50 mg PO Q6HR PRN #14 tablet 07/31/17 Unknown Rx Acetamin/Codeine 120-12Mg/5 ml 5 ml PO TID PRN #60 ml 10/10/17 Unknown Rx [Tylenol/Codeine] Amoxicillin/K Clav Tab [Augmentin 1 tab PO Q12HR #20 tab 10/10/17 Unknown Rx 875MG TAB] Benzonatate [Tessalon Perles] 100 mg PO Q8HR #30 capsule 10/10/17 Unknown Rx Cetirizine HCl [Zyrtec] 10 mg PO DAILY #24 tablet 10/10/17 Unknown Rx Ibuprofen [Motrin 800 MG tab] 800 mg PO TID PRN #20 tablet 10/10/17 Unknown Rx Cetirizine HCl [ZyrTEC] 10 mg PO QAM 14 Days #14 capsule 10/14/17 Unknown Rx Fluticasone [Flonase] 1 spray NS QDAY 14 Days #1 bottle 10/14/17 Unknown Rx Ibuprofen [Motrin 600 MG tab] 600 mg PO Q8H PRN 5 Days #15 tablet 10/14/17 Unknown Rx Magnesium Oxide 400 mg PO Q12H 6 Days #3 tablet 10/14/17 Unknown Rx Potassium Chloride [K-Dur] 20 meq PO BID 3 Days #6 tab 10/14/17 Unknown Rx Promethazine /Codeine 5 ml PO Q6H PRN 3 Days #60 udc 10/14/17 Unknown Rx [Phenergan/Codeine 6.25-10 mg/5Ml] HYDROcodone/ACETAMINOPHEN 10 ml PO Q6HR #100 solution 11/04/17 Unknown Rx [Hydrocodon-Acetamin 7.5-325/15] Sucralfate [Carafate] 1 gm PO Q6HR 10 Days udc 11/04/17 Unknown Rx ED Physical Exam - General Limitations: No Limitations General appearance: alert, in no apparent distress - Head Head exam: Present: atraumatic, normocephalic - Eye Eye exam: Present: normal appearance - ENT ENT exam: Present: mucous membranes moist - Neck Neck exam: Present: normal inspection - Respiratory Respiratory exam: Present: normal lung sounds bilaterally. Absent: respiratory distress, wheezes, rales, rhonchi - Cardiovascular Cardiovascular Exam: Present: regular rate, normal rhythm. Absent: systolic murmur, diastolic murmur, rubs, gallop - GI/Abdominal GI/Abdominal exam: Present: soft, tenderness (epigastric), normal bowel sounds. Absent: distended, guarding, rebound - Rectal Rectal exam: Present: deferred - Extremities Exam Extremities exam: Present: normal inspection - Back Exam Back exam: Present: normal inspection - Neurological Exam Neurological exam: Present: alert, oriented X3 - Psychiatric Psychiatric exam: Present: normal affect, normal mood - Skin Skin exam: Present: warm, dry, intact, normal color. Absent: rash ED Course Vital Signs 11/03/17 11/04/17 21:27 11:52 Temperature 98.4 F Pulse Rate 50 L Respiratory 16 16 Rate Blood Pressure 126/66 O2 Sat by Pulse 99 Oximetry ED Medical Decision Making - Lab Data Result diagrams: 11/03/17 21:37 11/03/17 21:37 - Radiology Data Radiology results: report reviewed Patient's ultrasound abdomen limited of the gallbladder shows no gallstones noted acute process - Medical Decision Making Patient is a 37-year-old [place] male with nausea vomiting and epigastric discomfort for the past several days. Patient states this is secondary to eating some greasy food. Patient is stable for discharge will have follow-up with gastroenterology. Patient states that the pills is been taking is not helping for further liquids. Go start the patient on Carafate and Lortab elixir for discomfort patient can take [id number] Maalox as well patient be discharged home Critical care attestation.: If time is entered above; I have spent that time in minutes in the direct care of this critically ill patient, excluding procedure time. ED Disposition Clinical Impression: Gastritis Qualifiers: Gastritis type: unspecified gastritis Chronicity: acute Gastritis bleeding: without bleeding Qualified Code(s): K29.00 - Acute gastritis without bleeding Disposition: DC- TO HOME OR SELFCARE Is pt being admited?: No Does the pt Need Aspirin: No Condition: Stable Instructions: Gastritis (ED) Prescriptions: HYDROcodone/ACETAMINOPHEN [Hydrocodon-Acetamin 7.5-325/15] 10 ml PO Q6HR #100 solution Sucralfate [Carafate] 1 gm PO Q6HR 10 Days udc Referrals: DEBORAH MANCINI MD [Staff Physician] - 3-5 Days
--- NOTE | 2017-11-04 11:47 | Ultrasound Report ---
ULTRASOUND ABDOMEN LIMITED INDICATION: Right upper quadrant pain. COMPARISON: 07/05/2017 CT and 07/28/2008 RUQ ultrasound. FINDINGS: Right upper quadrant ultrasound partly limited due to bowel gas, though suggests grossly normal hepatic contours and echotexture. No focal suspicious lesions or biliary dilatation, to the extent assessed. No gallstones, pericholecystic fluid or positive sonographic Cota's sign. Gallbladder wall thickness is 1.5 mm. CBD caliber is 1.6 mm. Pancreas obscured. Unremarkable IVC. Nonaneurysmal abdominal aorta. Top normal/borderline increased right renal cortical echogenicity. Right kidney measures 12 x 6.2 x 5.4 cm with cortical thickness of 1.5 cm. CONCLUSION: No acute abdominal sonographic abnormality with slight underlying medical renal disease questioned, as described. Please correlate. Thank you for the opportunity to participate in this patient's care.
== END 2017-11-04 13:44 | disposition home or self-care (01) ==
LOC: ED 20:25
DX: K29.00 Acute gastritis without bleeding (principal); F17.200 Nicotine dependence, unspecified, uncomplicated
CPT/HCPCS: 36415; 76705; 80053; 81001; 83690; 85007; 85025

== ENCOUNTER 2018-01-11 21:57 | Emergency (ER) | payer MEDICAID ==
[2018-01-11 22:01] VITALS: BP 109/65
[2018-01-11 23:01] LABS: Bacteria,Urine 1+ /HPF (Negative); Bilirubin,Urine NEG (Negative); Blood,Urine NEG (Negative); Color,Urine Straw (Yellow); Urobilinogen,Urine < 2.0 mg/dL (<2.0); WBC,Urine < 1.0 /HPF (0.0-6.0)
--- NOTE | 2018-01-11 23:42 | XRay Report ---
FINAL REPORT EXAM: XR RT FEMUR CLINICAL INDICATIONS: FALL, FX FINDINGS: AP and lateral views of the right femur were acquired and demonstrate no fracture or malalignment of the right femur. Hip joint space appears preserved. There is no destructive lesion. IMPRESSION: NO FRACTURE IS SEEN IN THE RIGHT FEMUR
--- NOTE | 2018-01-12 01:40 | Emergency Department Report ---
ED Fall HPI - General Chief Complaint: Syncope Stated Complaint: FALL Time Seen by Provider: 01/12/18 01:06 Source: patient Mode of arrival: Ambulatory - History of Present Illness Initial Comments: Mr. Stewart is a healthy 37-year-old male who presents with fall. He slipped down several steps at his home. His right shoulder pain right knee pain and right thigh pain. The pain did not improve with ibuprofen. He denies loss of consciousness. He has mild headache. No neck pain. Ambulatory without difficulty. MD Complaint: fall -: Sudden Fall From: down stairs (#) When Fall Occurred: other (Saturday) Fall Witnessed: no Place Fall Occurred: home Loss of Consciousness: none Prolonged Down Time?: no Symptoms Prior to Fall: lightheadedness Location - Extremities: Right: Shoulder, Thigh, Knee, Leg Severity: moderate Severity scale (0 -10): 5 Context: tripped/slipped Associated Symptoms: headache, lightheaded. denies: neck pain, numbness, weakness, chest paint, shortness of breath, abdominal pain, hematuria, unable to walk, vertigo, confusion - Related Data Previous Rx's Medication Instructions Recorded Last Taken Type Amoxicillin/K Clav Tab [Augmentin 1 tab PO Q12H #14 tablet 12/10/14 Unknown Rx 875MG] HYDROcodone/APAP 5-325 [[place] 1 each PO Q6HR PRN #12 tablet 12/10/14 Unknown Rx 5/325] Benzonatate [Tessalon Perles] 100 mg PO Q8HR #20 capsule 05/31/15 Unknown Rx Mometasone Furoate [Nasonex] 2 spray NS QDAY #1 bottle 05/31/15 Unknown Rx Acetaminophen/Codeine [Tylenol 1 tab PO Q6H PRN #12 tab 01/17/17 Unknown Rx /Codeine # 3 tab] Amoxicillin 500 mg PO TID #30 capsule 01/17/17 Unknown Rx Diclofenac Sodium 75 mg PO BID #20 tablet. 01/17/17 Unknown Rx Acetaminophen with Codeine 1 each PO Q6HR PRN #30 tablet 03/08/17 Unknown Rx [Acetaminophen-Codeine #4 TAB] Dicyclomine [Bentyl] 20 mg PO QID PRN #12 tablet 03/27/17 Unknown Rx Promethazine [Phenergan TAB] 25 mg PO Q8HR PRN #12 tab 03/27/17 Unknown Rx Acetaminophen/Codeine [Tylenol 1 tab PO Q6H PRN #14 tab 04/29/17 Unknown Rx /Codeine # 3 tab] Esomeprazole Magnesium [NexIUM] 40 mg PO QDAY #30 capsule. 04/29/17 Unknown Rx Ondansetron [Zofran Odt] 4 mg PO Q4-6H PRN #14 tab.rapdis 04/29/17 Unknown Rx Promethazine [Phenergan 6.25 mg/5 10 ml PO Q6H PRN #120 ml 06/02/17 Unknown Rx ml ORAL LIQ] Lidocaine Viscous 2% 15 ml MM Q6H 10 Days udc 06/20/17 Unknown Rx traMADol [Ultram] 50 mg PO Q6HR PRN #20 tablet 07/05/17 Unknown Rx Ondansetron [Zofran Odt] 4 mg PO Q6H PRN #10 tab.rapdis 07/31/17 Unknown Rx Potassium Chloride [K-Dur] 10 meq PO QDAY #7 tablet 07/31/17 Unknown Rx traMADol [Ultram] 50 mg PO Q6HR PRN #14 tablet 07/31/17 Unknown Rx Acetamin/Codeine 120-12Mg/5 ml 5 ml PO TID PRN #60 ml 10/10/17 Unknown Rx [Tylenol/Codeine] Amoxicillin/K Clav Tab [Augmentin 1 tab PO Q12HR #20 tab 10/10/17 Unknown Rx 875MG TAB] Benzonatate [Tessalon Perles] 100 mg PO Q8HR #30 capsule 10/10/17 Unknown Rx Cetirizine HCl [Zyrtec] 10 mg PO DAILY #24 tablet 10/10/17 Unknown Rx Ibuprofen [Motrin 800 MG tab] 800 mg PO TID PRN #20 tablet 10/10/17 Unknown Rx Cetirizine HCl [ZyrTEC] 10 mg PO QAM 14 Days #14 capsule 10/14/17 Unknown Rx Fluticasone [Flonase] 1 spray NS QDAY 14 Days #1 bottle 10/14/17 Unknown Rx Ibuprofen [Motrin 600 MG tab] 600 mg PO Q8H PRN 5 Days #15 tablet 10/14/17 Unknown Rx Magnesium Oxide 400 mg PO Q12H 6 Days #3 tablet 10/14/17 Unknown Rx Potassium Chloride [K-Dur] 20 meq PO BID 3 Days #6 tab 10/14/17 Unknown Rx Promethazine /Codeine 5 ml PO Q6H PRN 3 Days #60 udc 10/14/17 Unknown Rx [Phenergan/Codeine 6.25-10 mg/5Ml] HYDROcodone/ACETAMINOPHEN 10 ml PO Q6HR #100 solution 11/04/17 Unknown Rx [Hydrocodon-Acetamin 7.5-325/15] Sucralfate [Carafate] 1 gm PO Q6HR 10 Days udc 11/04/17 Unknown Rx traMADol [Ultram 50 MG tab] 50 mg PO Q6HR PRN #10 tablet 01/12/18 Unknown Rx Allergies Allergy/AdvReac Type Severity Reaction Status Date / Time prednisone Allergy Unknown Verified 03/08/17 12:30 trazodone Allergy Unknown Verified 11/03/17 21:33 ED Review of Systems ROS: Stated complaint: FALL Other details as noted in HPI ED Past Medical Hx - Past Medical History Hx Congestive Heart Failure: Yes Hx Psychiatric Treatment: No Additional medical history: seasonal allergies ,[place], heart murmur - Surgical History Additional Surgical History: SINUS SURGERY - Social History Smoking Status: Current Every Day Smoker Substance Use Type: None - Medications Home Medications: Home Medications Medication Instructions Recorded Confirmed Last Taken Type Amoxicillin/K Clav Tab [Augmentin 1 tab PO Q12H #14 tablet 12/10/14 Unknown Rx 875MG] HYDROcodone/APAP 5-325 [[place] 1 each PO Q6HR PRN #12 tablet 12/10/14 Unknown Rx 5/325] Benzonatate [Tessalon Perles] 100 mg PO Q8HR #20 capsule 05/31/15 Unknown Rx Mometasone Furoate [Nasonex] 2 spray NS QDAY #1 bottle 05/31/15 Unknown Rx Acetaminophen/Codeine [Tylenol 1 tab PO Q6H PRN #12 tab 01/17/17 Unknown Rx /Codeine # 3 tab] Amoxicillin 500 mg PO TID #30 capsule 01/17/17 Unknown Rx Diclofenac Sodium 75 mg PO BID #20 tablet. 01/17/17 Unknown Rx Acetaminophen with Codeine 1 each PO Q6HR PRN #30 tablet 03/08/17 Unknown Rx [Acetaminophen-Codeine #4 TAB] Dicyclomine [Bentyl] 20 mg PO QID PRN #12 tablet 03/27/17 Unknown Rx Promethazine [Phenergan TAB] 25 mg PO Q8HR PRN #12 tab 03/27/17 Unknown Rx Acetaminophen/Codeine [Tylenol 1 tab PO Q6H PRN #14 tab 04/29/17 Unknown Rx /Codeine # 3 tab] Esomeprazole Magnesium [NexIUM] 40 mg PO QDAY #30 capsule. 04/29/17 Unknown Rx Ondansetron [Zofran Odt] 4 mg PO Q4-6H PRN #14 tab.rapdis 04/29/17 Unknown Rx Promethazine [Phenergan 6.25 mg/5 10 ml PO Q6H PRN #120 ml 06/02/17 Unknown Rx ml ORAL LIQ] Lidocaine Viscous 2% 15 ml MM Q6H 10 Days udc 06/20/17 Unknown Rx traMADol [Ultram] 50 mg PO Q6HR PRN #20 tablet 07/05/17 Unknown Rx Ondansetron [Zofran Odt] 4 mg PO Q6H PRN #10 tab.rapdis 07/31/17 Unknown Rx Potassium Chloride [K-Dur] 10 meq PO QDAY #7 tablet 07/31/17 Unknown Rx traMADol [Ultram] 50 mg PO Q6HR PRN #14 tablet 07/31/17 Unknown Rx Acetamin/Codeine 120-12Mg/5 ml 5 ml PO TID PRN #60 ml 10/10/17 Unknown Rx [Tylenol/Codeine] Amoxicillin/K Clav Tab [Augmentin 1 tab PO Q12HR #20 tab 10/10/17 Unknown Rx 875MG TAB] Benzonatate [Tessalon Perles] 100 mg PO Q8HR #30 capsule 10/10/17 Unknown Rx Cetirizine HCl [Zyrtec] 10 mg PO DAILY #24 tablet 10/10/17 Unknown Rx Ibuprofen [Motrin 800 MG tab] 800 mg PO TID PRN #20 tablet 10/10/17 Unknown Rx Cetirizine HCl [ZyrTEC] 10 mg PO QAM 14 Days #14 capsule 10/14/17 Unknown Rx Fluticasone [Flonase] 1 spray NS QDAY 14 Days #1 bottle 10/14/17 Unknown Rx Ibuprofen [Motrin 600 MG tab] 600 mg PO Q8H PRN 5 Days #15 tablet 10/14/17 Unknown Rx Magnesium Oxide 400 mg PO Q12H 6 Days #3 tablet 10/14/17 Unknown Rx Potassium Chloride [K-Dur] 20 meq PO BID 3 Days #6 tab 10/14/17 Unknown Rx Promethazine /Codeine 5 ml PO Q6H PRN 3 Days #60 udc 10/14/17 Unknown Rx [Phenergan/Codeine 6.25-10 mg/5Ml] HYDROcodone/ACETAMINOPHEN 10 ml PO Q6HR #100 solution 11/04/17 Unknown Rx [Hydrocodon-Acetamin 7.5-325/15] Sucralfate [Carafate] 1 gm PO Q6HR 10 Days udc 11/04/17 Unknown Rx traMADol [Ultram 50 MG tab] 50 mg PO Q6HR PRN #10 tablet 01/12/18 Unknown Rx ED Physical Exam - General Limitations: Physical Limitation General appearance: alert, in no apparent distress - Head Head exam: Present: atraumatic, normocephalic - Eye Eye exam: Present: normal appearance - ENT ENT exam: Present: mucous membranes moist - Neck Neck exam: Present: normal inspection - Respiratory Respiratory exam: Present: normal lung sounds bilaterally. Absent: respiratory distress, wheezes, rales, rhonchi - Cardiovascular Cardiovascular Exam: Present: regular rate, normal rhythm. Absent: systolic murmur, diastolic murmur, rubs, gallop - GI/Abdominal GI/Abdominal exam: Present: soft. Absent: distended, tenderness, guarding, rebound, rigid - Rectal Rectal exam: Present: deferred - Extremities Exam Extremities exam: Present: normal inspection, other (no tenderness no deformity of the right arm right leg neurovascularly intact) - Back Exam Back exam: Present: normal inspection - Neurological Exam Neurological exam: Present: alert, oriented X3 - Psychiatric Psychiatric exam: Present: normal affect, normal mood - Skin Skin exam: Present: warm, dry, intact, normal color. Absent: rash ED Course Vital Signs 01/11/18 01/11/18 21:56 22:11 Temperature 98.2 F 98.2 F Pulse Rate 60 65 Respiratory 18 18 Rate Blood Pressure 109/65 109/65 Blood Pressure 109/65 [Left] O2 Sat by Pulse 93 96 Oximetry ED Medical Decision Making - Medical Decision Making Mr. Stewart presents after fall. No significant head or extremity trauma. Prescribed tramadol dc'd home No LOC or syncope according to the patient. Critical care attestation.: If time is entered above; I have spent that time in minutes in the direct care of this critically ill patient, excluding procedure time. ED Disposition Clinical Impression: Fall Disposition: DC-01 TO HOME OR SELFCARE Is pt being admited?: No Does the pt Need Aspirin: No Condition: Stable Instructions: Contusion in Adults (ED) Prescriptions: traMADol [Ultram 50 MG tab] 50 mg PO Q6HR PRN #10 tablet PRN Reason: Pain Time of Disposition: 01:40
[2018-01-12] MEDS ORDERED: ULTRAM PO ONE (02:10)
== END 2018-01-12 02:34 | disposition home or self-care (01) ==
LOC: ED 21:57
DX: M25.511 Pain in right shoulder (principal); M25.561 Pain in right knee; M79.651 Pain in right thigh; F17.200 Nicotine dependence, unspecified, uncomplicated; Z88.8 Allergy status to other drugs, medicaments and biological substances; W10.8XXA Fall (on) (from) other stairs and steps, initial encounter; Y93.89 Activity, other specified; Y92.89 Other specified places as the place of occurrence of the external cause; Y99.8 Other external cause status
CPT/HCPCS: 81001; 99284

== ENCOUNTER 2018-01-12 06:33 | Emergency (ER) | payer MEDICAID ==
[2018-01-12 06:40] VITALS: BP 114/62
--- NOTE | 2018-01-12 08:06 | Emergency Department Report ---
ED Headache HPI - General Chief Complaint: Pain General Stated Complaint: RIGHT LEG PAIN,HEADACHE Time Seen by Provider: 01/12/18 07:57 - History of Present Illness Initial Comments: This is a 37-year-old male nontoxic, well nourished in appearance, no acute signs of distress presents to the ED with c/o of headache and right femur pain status post fall that occurred yesterday. Patient stated he was walking down the stairs and tripped and landed on his femur region and his head against the pole but denies any loss of consciousness. Patient he was seen yesterday and was prescribed which patient stated that he filled and hasn't taken it with no relief. Patient denies any blurry vision or visual changes. Denies thunderclap headache. She stated that this is a gradual onset but has never subsided. Patient denies any nausea, vomiting, chest pain, shortness of breath , numbness, calf pain, calf tenderness, tingling, fever or chills. Patient states past medical history includes CHF. Patient states drug allergies. Patient stated allergies to prednisone and trazodone. Timing/Duration: 24 hours Quality: mild Head Injury Location: other (diffuse) Recent Head Trauma: head trauma > 24 hrs ago Associated Symptoms: denies symptoms. denies: confusion, fatigue, facial pain, fever/chills, flushing, loss of consciousness, nausea/vomiting, nasal congestion , nasal drainage, numbness in legs/feet, rash, seizures, sinus infection, stiff neck, vision changes, weakness Allergies/Adverse Reactions: Allergies prednisone Allergy (Verified 01/12/18 07:47) Unknown trazodone Allergy (Verified 01/12/18 07:47) Unknown Home Medications: Ambulatory Orders Amoxicillin/K Clav Tab [Augmentin 875MG] 1 tab PO Q12H #14 tablet 12/10/14 HYDROcodone/APAP 5-325 [[place] 5/325] 1 each PO Q6HR PRN #12 tablet 12/10/14 Benzonatate [Tessalon Perles] 100 mg PO Q8HR #20 capsule 05/31/15 Mometasone Furoate [Nasonex] 2 spray NS QDAY #1 bottle 05/31/15 Acetaminophen/Codeine [Tylenol /Codeine # 3 tab] 1 tab PO Q6H PRN #12 tab Amoxicillin 500 mg PO TID #30 capsule 01/17/17 Diclofenac Sodium 75 mg PO BID #20 tablet. 01/17/17 Acetaminophen with Codeine [Acetaminophen-Codeine #4 TAB] 1 each PO Q6HR PRN # 30 tablet 03/08/17 Dicyclomine [Bentyl] 20 mg PO QID PRN #12 tablet 03/27/17 Promethazine [Phenergan TAB] 25 mg PO Q8HR PRN #12 tab 03/27/17 Acetaminophen/Codeine [Tylenol /Codeine # 3 tab] 1 tab PO Q6H PRN #14 tab Esomeprazole Magnesium [NexIUM] 40 mg PO QDAY #30 capsule. 04/29/17 Ondansetron [Zofran Odt] 4 mg PO Q4-6H PRN #14 tab.rapdis 04/29/17 Promethazine [Phenergan 6.25 mg/5 ml ORAL LIQ] 10 ml PO Q6H PRN #120 ml Lidocaine Viscous 2% 15 ml MM Q6H 10 Days udc 06/20/17 traMADol [Ultram] 50 mg PO Q6HR PRN #20 tablet 07/05/17 Ondansetron [Zofran Odt] 4 mg PO Q6H PRN #10 tab.rapdis 07/31/17 Potassium Chloride [K-Dur] 10 meq PO QDAY #7 tablet 07/31/17 traMADol [Ultram] 50 mg PO Q6HR PRN #14 tablet 07/31/17 Acetamin/Codeine 120-12Mg/5 ml [Tylenol/Codeine] 5 ml PO TID PRN #60 ml Amoxicillin/K Clav Tab [Augmentin 875MG TAB] 1 tab PO Q12HR #20 tab 10/10/17 Benzonatate [Tessalon Perles] 100 mg PO Q8HR #30 capsule 10/10/17 Cetirizine HCl [Zyrtec] 10 mg PO DAILY #24 tablet 10/10/17 Ibuprofen [Motrin 800 MG tab] 800 mg PO TID PRN #20 tablet 10/10/17 Cetirizine HCl [ZyrTEC] 10 mg PO QAM 14 Days #14 capsule 10/14/17 Fluticasone [Flonase] 1 spray NS QDAY 14 Days #1 bottle 10/14/17 Ibuprofen [Motrin 600 MG tab] 600 mg PO Q8H PRN 5 Days #15 tablet 10/14/17 Magnesium Oxide 400 mg PO Q12H 6 Days #3 tablet 10/14/17 Potassium Chloride [K-Dur] 20 meq PO BID 3 Days #6 tab 10/14/17 Promethazine /Codeine [Phenergan/Codeine 6.25-10 mg/5Ml] 5 ml PO Q6H PRN 3 Days #60 udc 10/14/17 HYDROcodone/ACETAMINOPHEN [Hydrocodon-Acetamin 7.5-325/15] 10 ml PO Q6HR #100 solution 11/04/17 Sucralfate [Carafate] 1 gm PO Q6HR 10 Days udc 11/04/17 Butalb/Acetamin/Caff 50-325-40 [Fioricet] 1 tab PO Q8HR PRN #10 tablet 01/12/18 traMADol [Ultram 50 MG tab] 50 mg PO Q6HR PRN #10 tablet 01/12/18 ED Review of Systems ROS: Stated complaint: RIGHT LEG PAIN,HEADACHE Other details as noted in HPI Constitutional: denies: chills, fever Eyes: denies: eye pain, eye discharge, vision change ENT: denies: ear pain, throat pain Respiratory: denies: cough, shortness of breath, wheezing Cardiovascular: denies: chest pain, palpitations Endocrine: no symptoms reported Gastrointestinal: denies: abdominal pain, nausea, diarrhea Genitourinary: denies: urgency, dysuria Musculoskeletal: arthralgia. denies: back pain, joint swelling Skin: denies: rash, lesions Neurological: headache. denies: weakness, paresthesias Psychiatric: denies: anxiety, depression Hematological/Lymphatic: denies: easy bleeding, easy bruising ED Past Medical Hx - Past Medical History Previous Medical History?: Yes Hx Congestive Heart Failure: Yes Hx Psychiatric Treatment: No Additional medical history: seasonal allergies ,[place], heart murmur - Surgical History Past Surgical History?: Yes Additional Surgical History: SINUS SURGERY - Social History Smoking Status: Current Every Day Smoker Substance Use Type: Marijuana - Medications Home Medications: Home Medications Medication Instructions Recorded Confirmed Last Taken Type Amoxicillin/K Clav Tab [Augmentin 1 tab PO Q12H #14 tablet 12/10/14 Unknown Rx 875MG] HYDROcodone/APAP 5-325 [[place] 1 each PO Q6HR PRN #12 tablet 12/10/14 Unknown Rx 5/325] Benzonatate [Tessalon Perles] 100 mg PO Q8HR #20 capsule 05/31/15 Unknown Rx Mometasone Furoate [Nasonex] 2 spray NS QDAY #1 bottle 05/31/15 Unknown Rx Acetaminophen/Codeine [Tylenol 1 tab PO Q6H PRN #12 tab 01/17/17 Unknown Rx /Codeine # 3 tab] Amoxicillin 500 mg PO TID #30 capsule 01/17/17 Unknown Rx Diclofenac Sodium 75 mg PO BID #20 tablet. 01/17/17 Unknown Rx Acetaminophen with Codeine 1 each PO Q6HR PRN #30 tablet 03/08/17 Unknown Rx [Acetaminophen-Codeine #4 TAB] Dicyclomine [Bentyl] 20 mg PO QID PRN #12 tablet 03/27/17 Unknown Rx Promethazine [Phenergan TAB] 25 mg PO Q8HR PRN #12 tab 03/27/17 Unknown Rx Acetaminophen/Codeine [Tylenol 1 tab PO Q6H PRN #14 tab 04/29/17 Unknown Rx /Codeine # 3 tab] Esomeprazole Magnesium [NexIUM] 40 mg PO QDAY #30 capsule. 04/29/17 Unknown Rx Ondansetron [Zofran Odt] 4 mg PO Q4-6H PRN #14 tab.rapdis 04/29/17 Unknown Rx Promethazine [Phenergan 6.25 mg/5 10 ml PO Q6H PRN #120 ml 06/02/17 Unknown Rx ml ORAL LIQ] Lidocaine Viscous 2% 15 ml MM Q6H 10 Days udc 06/20/17 Unknown Rx traMADol [Ultram] 50 mg PO Q6HR PRN #20 tablet 07/05/17 Unknown Rx Ondansetron [Zofran Odt] 4 mg PO Q6H PRN #10 tab.rapdis 07/31/17 Unknown Rx Potassium Chloride [K-Dur] 10 meq PO QDAY #7 tablet 07/31/17 Unknown Rx traMADol [Ultram] 50 mg PO Q6HR PRN #14 tablet 07/31/17 Unknown Rx Acetamin/Codeine 120-12Mg/5 ml 5 ml PO TID PRN #60 ml 10/10/17 Unknown Rx [Tylenol/Codeine] Amoxicillin/K Clav Tab [Augmentin 1 tab PO Q12HR #20 tab 10/10/17 Unknown Rx 875MG TAB] Benzonatate [Tessalon Perles] 100 mg PO Q8HR #30 capsule 10/10/17 Unknown Rx Cetirizine HCl [Zyrtec] 10 mg PO DAILY #24 tablet 10/10/17 Unknown Rx Ibuprofen [Motrin 800 MG tab] 800 mg PO TID PRN #20 tablet 10/10/17 Unknown Rx Cetirizine HCl [ZyrTEC] 10 mg PO QAM 14 Days #14 capsule 10/14/17 Unknown Rx Fluticasone [Flonase] 1 spray NS QDAY 14 Days #1 bottle 10/14/17 Unknown Rx Ibuprofen [Motrin 600 MG tab] 600 mg PO Q8H PRN 5 Days #15 tablet 10/14/17 Unknown Rx Magnesium Oxide 400 mg PO Q12H 6 Days #3 tablet 10/14/17 Unknown Rx Potassium Chloride [K-Dur] 20 meq PO BID 3 Days #6 tab 10/14/17 Unknown Rx Promethazine /Codeine 5 ml PO Q6H PRN 3 Days #60 udc 10/14/17 Unknown Rx [Phenergan/Codeine 6.25-10 mg/5Ml] HYDROcodone/ACETAMINOPHEN 10 ml PO Q6HR #100 solution 11/04/17 Unknown Rx [Hydrocodon-Acetamin 7.5-325/15] Sucralfate [Carafate] 1 gm PO Q6HR 10 Days udc 11/04/17 Unknown Rx Butalb/Acetamin/Caff 50-325-40 1 tab PO Q8HR PRN #10 tablet 01/12/18 Unknown Rx [Fioricet] traMADol [Ultram 50 MG tab] 50 mg PO Q6HR PRN #10 tablet 01/12/18 Unknown Rx ED Physical Exam - General Limitations: Other General appearance: alert, in no apparent distress - Head Head exam: Present: atraumatic, normocephalic - Eye Eye exam: Present: normal appearance Pupils: Present: normal accommodation - ENT ENT exam: Present: normal exam, mucous membranes moist - Neck Neck exam: Present: normal inspection, full ROM. Absent: tenderness, meningismus - Respiratory Respiratory exam: Present: normal lung sounds bilaterally. Absent: respiratory distress, wheezes, rales, rhonchi, stridor, chest wall tenderness, accessory muscle use, decreased breath sounds, prolonged expiratory - Cardiovascular Cardiovascular Exam: Present: regular rate, normal rhythm, bradycardia, normal heart sounds. Absent: irregular rhythm, systolic murmur, diastolic murmur, rubs , gallop - GI/Abdominal GI/Abdominal exam: Present: soft, normal bowel sounds. Absent: distended, tenderness, guarding, rebound, diminished bowel sounds - Rectal Rectal exam: Present: deferred - Extremities Exam Extremities exam: Present: normal inspection, full ROM, normal capillary refill. Absent: tenderness, pedal edema, joint swelling, calf tenderness - Expanded Lower Extremity Exam Right Hip exam: Present: normal inspection, full ROM Upper Leg exam: Present: normal inspection, full ROM. Absent: tenderness, swelling, abrasion, laceration, ecchymosis, deformity, crepidus, dislocation, erythema Knee exam: Present: normal inspection, full ROM, full knee extension. Absent: tenderness, swelling, abrasion, laceration, ecchymosis, deformity, crepidus, dislocation, erythema, effusion, pain w/ pronation/supination, posterior draw sign, pain/laxity with valgus, pain/laxity with varus Lower Leg exam: Present: normal inspection, full ROM. Absent: tenderness, swelling, abrasion, laceration, ecchymosis, deformity, crepidus, dislocation, erythema, palpable cord, Sameera's sign Ankle exam: Present: normal inspection, full ROM Foot/Toe exam: Present: normal inspection, full ROM Neuro vascular tendon exam: Present: no vascular compromise. Absent: pulse deficit, abnormal cap refill, motor deficit, sensory deficit, tendon deficit, extremity cold to touch, pallor, abnormal 2-point discrimination, decreased fine /light touch, foot drop, peroneal nerve deficit, significant pain with passive ROM of distal joint Gait: Positive: observed and normal - Back Exam Back exam: Present: normal inspection, full ROM. Absent: tenderness, CVA tenderness (R), CVA tenderness (L), muscle spasm, paraspinal tenderness, vertebral tenderness, rash noted - Neurological Exam Neurological exam: Present: alert, oriented X3, CN II-XII intact, normal gait - Expanded Neurological Exam Expanded Patient oriented to: Present: person, place, time Cranial nerves: EOM's Intact: Normal, Gag Reflex: Normal, Facial Sensation: Normal, Facial Palsy with Forehead Movement: Normal Cerebellar function: Finger to Nose: Normal Upper motor neuron: Pronator Drift: Normal, Sensory Extinction: Normal Sensory exam: Upper Extremity Light Touch: Normal, Upper Extremity Pin Prick: Normal, Upper Extremity Temperature: Normal, UE 2 Point Discrimination: Normal, Lower Extremity Light Touch: Normal, Lower Extremity Pin Prick: Normal, Lower Extremity Temperature: Normal, LE 2 Point Discrimination: Normal Motor strength exam: RUE: 5, LUE: 5, RLE: 5, LLE: 5 Best Eye Response ([place]): (4) open spontaneously Best Motor Response ([place]): (6) obeys commands Best Verbal Response ([place]): (5) oriented [place] Total: 15 - Psychiatric Psychiatric exam: Present: normal affect, normal mood - Skin Skin exam: Present: warm, dry, intact, normal color. Absent: rash ED Course Vital Signs 01/12/18 01/12/18 06:34 07:42 Temperature 97.4 F L 97.4 F L Pulse Rate 39 L 48 L Respiratory 18 16 Rate Blood Pressure 114/62 114/62 O2 Sat by Pulse 99 98 Oximetry - Reevaluation(s) Reevaluation #1: 01/12/18 08:14 Patient is speaking in full sentences with no signs of distress noted. ED Medical Decision Making - Medical Decision Making This is a 37-year-old male that presents with the presents with headache. Patient is stable and was examined by me. Patient also has bradycardia and I looked up previous records which patient has bradycardia of the 40s and 60s and prior visits. The patient stated that his heart rate normally fluctuates between 40s and 60s. Patient denies any cardiac or posterior symptoms. No prior x-ray of femur that was done yesterday is negative and dictated by the radiologist. A CT of Head/brain has been obtained and interpreted by the radiologist within normal limits. Patient is notified of CT report with no pulse noted by the patient. I accessed the database of [facility] which indicates the patient has not filled his prescription of tramadol but has about 27 prescriptions within this year and with 20 providers. Patient is discharged with Fioricet. Patient was referred to Follow-up with a primary care doctor in 3-5 days or if symptoms worsen and continue return to emergency room as soon as possible. At time of discharge, the patient does not seem toxic or ill in appearance. No acute signs of distress noted. Patient agrees to discharge treatment plan of care. No further questions noted by the patient. Critical care attestation.: If time is entered above; I have spent that time in minutes in the direct care of this critically ill patient, excluding procedure time. ED Disposition Clinical Impression: Headache Qualifiers: Headache type: unspecified Headache chronicity pattern: acute headache Intractability: not intractable Qualified Code(s): R51 - Headache Disposition: DC- TO HOME OR SELFCARE Is pt being admited?: No Does the pt Need Aspirin: No Condition: Stable Instructions: Acute Headache (ED) Additional Instructions: Follow-up with a primary care doctor in 3-5 days or if symptoms worsen and continue return to emergency room as soon as possible. Prescriptions: Butalb/Acetamin/Caff 50-325-40 [Fioricet] 1 tab PO Q8HR PRN #10 tablet PRN Reason: Headache Referrals: PATRICK GENAO MD [Primary Care Provider] - 3-5 Days PRIMARY CARE, [Referring] - 3-5 Days GEORGETTE CORONA MD [Staff Physician] - 3-5 Days [facility] [Outside] - 3-5 Days [facility] [Outside] - 3-5 Days Forms: Work/School Release Form(ED)
--- NOTE | 2018-01-12 08:20 | Cat Scan Report ---
FINAL REPORT EXAM: CT HEAD/BRAIN WO CON HISTORY: headache TECHNIQUE: CT of the head was performed. No intravenous contrast was administered. PRIORS: None. FINDINGS: There is no evidence of intracranial hemorrhage. There is no edema, mass effect or midline shift. There are no abnormal extra-axial fluid collections. The ventricles are appropriate for brain volume. There is no skull fracture seen. The visualized aspects of the sinuses are clear. IMPRESSION: There is no acute intracranial abnormality identified.
[2018-01-12] MEDS ORDERED: MOTRIN PO ONE (08:33)
== END 2018-01-12 08:46 | disposition home or self-care (01) ==
LOC: ED 06:33
DX: R51 Headache (principal); F17.200 Nicotine dependence, unspecified, uncomplicated; F12.10 Cannabis abuse, uncomplicated; M79.604 Pain in right leg
CPT/HCPCS: 70450; 93005; 93010

== ENCOUNTER 2018-01-13 23:46 | Emergency (ER) | payer MEDICAID ==
[2018-01-14 00:19] VITALS: BP 115/70
--- NOTE | 2018-01-14 05:18 | Emergency Department Report ---
Chief Complaint: Headache Stated Complaint: HEADACHE,ARM,LEG,BACK PAIN - HPI History of Present Illness: 37-year-old male past medical history CHF, marijuana use, multiple medical problems,? Drug-seeking behavior? Presents with complaint of headache and right arm pain and leg pain status post fall downstairs. Patient is arousable but is sleepy and somewhat drowsy. Patient states he has been using ibuprofen but his pain is not getting better states it is getting worse. Pt was seen twice within the last few days for the same issues. Patient was possibly intoxicated. Is answering my questions but is drowsy. - ROS Review of Systems: Recent fall, headache, right shoulder pain. - Exam Vital Signs: Vital Signs 01/14/18 00:17 Temperature 97.9 F Pulse Rate 55 L Respiratory 17 Rate Blood Pressure 115/70 O2 Sat by Pulse 99 Oximetry Physical Exam: Patient is awake and alert to person and place but not to time. Heart S1-S2, lungs clear to auscultation. Patient is ambulatory. Patient is somewhat drowsy MSE screening note: Focused history and physical exam performed. Due to findings the following was ordered: Screening Assessment/Plan/Differential Dx: Headache, musculoskeletal extremity pain 1- This initial assessment/diagnostic orders/clinical plan/ treatment(s) is/are subject to change based on pt's health status, clinical progression and re- assessment by fellow clinical providers in the ED. Further treatment and workup at subsequent clinical provers discretion. Patient/guardians urged not to elope from ED as their condition may be serious if not clinically assessed and managed. 2-patient is complaining of increased headache, will repeat head CT 3-basic labs, UA, urine drugs. I am uncertain if patient is intoxicated as he is not providing a detailed history and somewhat slurred speech when I speak to him 4- As this is patients 3rd ED visit for same/worsening complaint i will medically screen pt and leave further management to discretion of ED physician ED Disposition for MSE Condition: Stable Referrals: PATRICK GENAO MD [Primary Care Provider] - 3-5 Days
[2018-01-14 05:40] LABS: Basophils # (Auto) 0.1 K/mm3 (0.0-0.1); Basophils % (Auto) 1.1 % (0.0-1.8); Eosinophils # (Auto) 0.4 K/mm3 (0.0-0.4); Eosinophils % (Auto) 4.2 % (0.0-4.3); Hematocrit 51.1 % (35.5-45.6); Hemoglobin 16.8 gm/dl (11.8-15.2); Lymphocytes # (Auto) 3.5 K/mm3 (1.2-5.4); Lymphocytes % (Auto) 40.6 % (13.4-35.0); Mean Corpuscular HGB Conc 33 % (32-34); Mean Corpuscular Hemoglobin 30 pg (28-32); Mean Corpuscular Volume 91 fl (84-94); Monocytes # (Auto) 0.6 K/mm3 (0.0-0.8); Monocytes % (Auto) 7.4 % (0.0-7.3); Platelet Count 236 K/mm3 (140-440); Red Blood Count 5.59 M/mm3 (3.65-5.03); Red Cell Distribution Width 14.9 % (13.2-15.2)
[2018-01-14 05:48] LABS: BUN/Creatinine Ratio 15; Blood Urea Nitrogen 16 mg/dL (9-20); Calcium 8.9 mg/dL (8.4-10.2); Hemolysis Index 61
[2018-01-14 06:16] LABS: Amphetamine Screen,Urine PRESUMPTIVE NEGATIVE; Benzodiazepines Screen,Urine PRESUMPTIVE NEGATIVE; Cocaine Screen,Urine PRESUMPTIVE NEGATIVE; Methadone Screen,Urine PRESUMPTIVE NEGATIVE; Opiate Screen,Urine PRESUMPTIVE NEGATIVE
[2018-01-14 06:31] LABS: Cannabinoid Screen,Urine PRESUMPTIVE POSITIVE
== END 2018-01-14 06:00 | disposition left against medical advice (07) ==
LOC: ED 23:46
DX: R51 Headache (principal); M25.511 Pain in right shoulder; M79.606 Pain in leg, unspecified; I50.9 Heart failure, unspecified; F12.10 Cannabis abuse, uncomplicated; Z88.8 Allergy status to other drugs, medicaments and biological substances; W10.9XXA Fall (on) (from) unspecified stairs and steps, initial encounter; Y93.01 Activity, walking, marching and hiking; Y99.8 Other external cause status; Y92.89 Other specified places as the place of occurrence of the external cause
CPT/HCPCS: 36415; 80048; 80307; 85025; 99283; G0480; 80320

== ENCOUNTER 2018-02-12 01:09 | Emergency (ER) | payer MEDICAID ==
[2018-02-12 02:22] VITALS: BP 117/75
[2018-02-12 03:46] LABS: Bacteria,Urine 1+ /HPF (Negative); Bilirubin,Urine NEG (Negative); Blood,Urine MOD (Negative); Color,Urine Yellow (Yellow)
[2018-02-12] MEDS ORDERED: TYLENOL #3 PO ONE (05:37)
--- NOTE | 2018-02-12 05:41 | Emergency Department Report ---
ED Back Pain/Injury HPI - General Chief Complaint: Back Pain/Injury Stated Complaint: LEG AND BACK PAIN Time Seen by Provider: 02/12/18 05:36 Source: patient Limitations: No Limitations - History of Present Illness Initial Comments: 37-year-old male past medical history drug seeking behavior, mental health illness complaining of lower back pain and right knee pain. Patient states he has been exerting himself at work lifting heavy boxes. Denies any loss of bladder or bowel control. Patient is ambulatory without assistance. Denies saddle paresthesias. Patient is awake however is slightly drowsy. Denies any trauma to any body part. When asked patient if he uses any drugs patient was unclear with his answer. States pain is worse when he gets up and moves around describes it as an aching pain. MD Complaint: back pain Onset/Timin -: days(s) Place: work Severity: mild Quality: aching Consistency: intermittent Context: while lifting, turning/twisting, bending Associated Symptoms: denies other symptoms - Related Data Previous Rx's Medication Instructions Recorded Last Taken Type Amoxicillin/K Clav Tab [Augmentin 1 tab PO Q12H #14 tablet 12/10/14 Unknown Rx 875MG] HYDROcodone/APAP 5-325 [[place] 1 each PO Q6HR PRN #12 tablet 12/10/14 Unknown Rx 5/325] Benzonatate [Tessalon Perles] 100 mg PO Q8HR #20 capsule 05/31/15 Unknown Rx Mometasone Furoate [Nasonex] 2 spray NS QDAY #1 bottle 05/31/15 Unknown Rx Acetaminophen/Codeine [Tylenol 1 tab PO Q6H PRN #12 tab 01/17/17 Unknown Rx /Codeine # 3 tab] Amoxicillin 500 mg PO TID #30 capsule 01/17/17 Unknown Rx Diclofenac Sodium 75 mg PO BID #20 tablet. 01/17/17 Unknown Rx Acetaminophen with Codeine 1 each PO Q6HR PRN #30 tablet 03/08/17 Unknown Rx [Acetaminophen-Codeine #4 TAB] Dicyclomine [Bentyl] 20 mg PO QID PRN #12 tablet 03/27/17 Unknown Rx Promethazine [Phenergan TAB] 25 mg PO Q8HR PRN #12 tab 03/27/17 Unknown Rx Acetaminophen/Codeine [Tylenol 1 tab PO Q6H PRN #14 tab 04/29/17 Unknown Rx /Codeine # 3 tab] Esomeprazole Magnesium [NexIUM] 40 mg PO QDAY #30 capsule. 04/29/17 Unknown Rx Ondansetron [Zofran Odt] 4 mg PO Q4-6H PRN #14 tab.rapdis 04/29/17 Unknown Rx Promethazine [Phenergan 6.25 mg/5 10 ml PO Q6H PRN #120 ml 06/02/17 Unknown Rx ml ORAL LIQ] Lidocaine Viscous 2% 15 ml MM Q6H 10 Days udc 06/20/17 Unknown Rx traMADol [Ultram] 50 mg PO Q6HR PRN #20 tablet 07/05/17 Unknown Rx Ondansetron [Zofran Odt] 4 mg PO Q6H PRN #10 tab.rapdis 07/31/17 Unknown Rx Potassium Chloride [K-Dur] 10 meq PO QDAY #7 tablet 07/31/17 Unknown Rx traMADol [Ultram] 50 mg PO Q6HR PRN #14 tablet 07/31/17 Unknown Rx Acetamin/Codeine 120-12Mg/5 ml 5 ml PO TID PRN #60 ml 10/10/17 Unknown Rx [Tylenol/Codeine] Amoxicillin/K Clav Tab [Augmentin 1 tab PO Q12HR #20 tab 10/10/17 Unknown Rx 875MG TAB] Benzonatate [Tessalon Perles] 100 mg PO Q8HR #30 capsule 10/10/17 Unknown Rx Cetirizine HCl [Zyrtec] 10 mg PO DAILY #24 tablet 10/10/17 Unknown Rx Ibuprofen [Motrin 800 MG tab] 800 mg PO TID PRN #20 tablet 10/10/17 Unknown Rx Cetirizine HCl [ZyrTEC] 10 mg PO QAM 14 Days #14 capsule 10/14/17 Unknown Rx Fluticasone [Flonase] 1 spray NS QDAY 14 Days #1 bottle 10/14/17 Unknown Rx Ibuprofen [Motrin 600 MG tab] 600 mg PO Q8H PRN 5 Days #15 tablet 10/14/17 Unknown Rx Magnesium Oxide 400 mg PO Q12H 6 Days #3 tablet 10/14/17 Unknown Rx Potassium Chloride [K-Dur] 20 meq PO BID 3 Days #6 tab 10/14/17 Unknown Rx Promethazine /Codeine 5 ml PO Q6H PRN 3 Days #60 udc 10/14/17 Unknown Rx [Phenergan/Codeine 6.25-10 mg/5Ml] HYDROcodone/ACETAMINOPHEN 10 ml PO Q6HR #100 solution 11/04/17 Unknown Rx [Hydrocodon-Acetamin 7.5-325/15] Sucralfate [Carafate] 1 gm PO Q6HR 10 Days udc 11/04/17 Unknown Rx Butalb/Acetamin/Caff 50-325-40 1 tab PO Q8HR PRN #10 tablet 01/12/18 Unknown Rx [Fioricet] traMADol [Ultram 50 MG tab] 50 mg PO Q6HR PRN #10 tablet 01/12/18 Unknown Rx Cyclobenzaprine [Flexeril] 10 mg PO TID PRN #8 tablet 02/12/18 Unknown Rx Ibuprofen [Motrin] 600 mg PO Q8H PRN #20 tablet 02/12/18 Unknown Rx Allergies Allergy/AdvReac Type Severity Reaction Status Date / Time prednisone Allergy Unknown Verified 01/12/18 07:47 trazodone Allergy Unknown Verified 01/12/18 07:47 ED Review of Systems ROS: Stated complaint: LEG AND BACK PAIN Other details as noted in HPI Constitutional: denies: chills, fever Eyes: denies: eye pain, eye discharge, vision change ENT: denies: ear pain, throat pain Respiratory: denies: cough, shortness of breath, wheezing Cardiovascular: denies: chest pain, palpitations Endocrine: no symptoms reported Gastrointestinal: denies: abdominal pain, nausea, diarrhea Genitourinary: denies: urgency, dysuria Musculoskeletal: back pain. denies: joint swelling, arthralgia Skin: denies: rash, lesions Neurological: denies: headache, weakness, paresthesias Psychiatric: denies: anxiety, depression Hematological/Lymphatic: denies: easy bleeding, easy bruising ED Past Medical Hx - Past Medical History Previous Medical History?: Yes Hx Congestive Heart Failure: Yes Hx Psychiatric Treatment: No Additional medical history: seasonal allergies ,SHAWNEE, heart murmur - Surgical History Past Surgical History?: Yes Additional Surgical History: SINUS SURGERY - Social History Smoking Status: Current Every Day Smoker Substance Use Type: Marijuana - Medications Home Medications: Home Medications Medication Instructions Recorded Confirmed Last Taken Type Amoxicillin/K Clav Tab [Augmentin 1 tab PO Q12H #14 tablet 12/10/14 Unknown Rx 875MG] HYDROcodone/APAP 5-325 [[place] 1 each PO Q6HR PRN #12 tablet 12/10/14 Unknown Rx 5/325] Benzonatate [Tessalon Perles] 100 mg PO Q8HR #20 capsule 05/31/15 Unknown Rx Mometasone Furoate [Nasonex] 2 spray NS QDAY #1 bottle 05/31/15 Unknown Rx Acetaminophen/Codeine [Tylenol 1 tab PO Q6H PRN #12 tab 01/17/17 Unknown Rx /Codeine # 3 tab] Amoxicillin 500 mg PO TID #30 capsule 01/17/17 Unknown Rx Diclofenac Sodium 75 mg PO BID #20 tablet. 01/17/17 Unknown Rx Acetaminophen with Codeine 1 each PO Q6HR PRN #30 tablet 03/08/17 Unknown Rx [Acetaminophen-Codeine #4 TAB] Dicyclomine [Bentyl] 20 mg PO QID PRN #12 tablet 03/27/17 Unknown Rx Promethazine [Phenergan TAB] 25 mg PO Q8HR PRN #12 tab 03/27/17 Unknown Rx Acetaminophen/Codeine [Tylenol 1 tab PO Q6H PRN #14 tab 04/29/17 Unknown Rx /Codeine # 3 tab] Esomeprazole Magnesium [NexIUM] 40 mg PO QDAY #30 capsule. 04/29/17 Unknown Rx Ondansetron [Zofran Odt] 4 mg PO Q4-6H PRN #14 tab.rapdis 04/29/17 Unknown Rx Promethazine [Phenergan 6.25 mg/5 10 ml PO Q6H PRN #120 ml 06/02/17 Unknown Rx ml ORAL LIQ] Lidocaine Viscous 2% 15 ml MM Q6H 10 Days udc 06/20/17 Unknown Rx traMADol [Ultram] 50 mg PO Q6HR PRN #20 tablet 07/05/17 Unknown Rx Ondansetron [Zofran Odt] 4 mg PO Q6H PRN #10 tab.rapdis 07/31/17 Unknown Rx Potassium Chloride [K-Dur] 10 meq PO QDAY #7 tablet 07/31/17 Unknown Rx traMADol [Ultram] 50 mg PO Q6HR PRN #14 tablet 07/31/17 Unknown Rx Acetamin/Codeine 120-12Mg/5 ml 5 ml PO TID PRN #60 ml 10/10/17 Unknown Rx [Tylenol/Codeine] Amoxicillin/K Clav Tab [Augmentin 1 tab PO Q12HR #20 tab 10/10/17 Unknown Rx 875MG TAB] Benzonatate [Tessalon Perles] 100 mg PO Q8HR #30 capsule 10/10/17 Unknown Rx Cetirizine HCl [Zyrtec] 10 mg PO DAILY #24 tablet 10/10/17 Unknown Rx Ibuprofen [Motrin 800 MG tab] 800 mg PO TID PRN #20 tablet 10/10/17 Unknown Rx Cetirizine HCl [ZyrTEC] 10 mg PO QAM 14 Days #14 capsule 10/14/17 Unknown Rx Fluticasone [Flonase] 1 spray NS QDAY 14 Days #1 bottle 10/14/17 Unknown Rx Ibuprofen [Motrin 600 MG tab] 600 mg PO Q8H PRN 5 Days #15 tablet 10/14/17 Unknown Rx Magnesium Oxide 400 mg PO Q12H 6 Days #3 tablet 10/14/17 Unknown Rx Potassium Chloride [K-Dur] 20 meq PO BID 3 Days #6 tab 10/14/17 Unknown Rx Promethazine /Codeine 5 ml PO Q6H PRN 3 Days #60 udc 10/14/17 Unknown Rx [Phenergan/Codeine 6.25-10 mg/5Ml] HYDROcodone/ACETAMINOPHEN 10 ml PO Q6HR #100 solution 11/04/17 Unknown Rx [Hydrocodon-Acetamin 7.5-325/15] Sucralfate [Carafate] 1 gm PO Q6HR 10 Days udc 11/04/17 Unknown Rx Butalb/Acetamin/Caff 50-325-40 1 tab PO Q8HR PRN #10 tablet 01/12/18 Unknown Rx [Fioricet] traMADol [Ultram 50 MG tab] 50 mg PO Q6HR PRN #10 tablet 01/12/18 Unknown Rx Cyclobenzaprine [Flexeril] 10 mg PO TID PRN #8 tablet 02/12/18 Unknown Rx Ibuprofen [Motrin] 600 mg PO Q8H PRN #20 tablet 02/12/18 Unknown Rx ED Physical Exam - General Limitations: No Limitations General appearance: alert, in no apparent distress - Head Head exam: Present: atraumatic, normocephalic - Eye Eye exam: Present: normal appearance - ENT ENT exam: Present: mucous membranes moist - Neck Neck exam: Present: normal inspection - Respiratory Respiratory exam: Present: normal lung sounds bilaterally. Absent: respiratory distress - Cardiovascular Cardiovascular Exam: Present: regular rate, normal rhythm. Absent: systolic murmur, diastolic murmur, rubs, gallop - GI/Abdominal GI/Abdominal exam: Present: soft, normal bowel sounds - Rectal Rectal exam: Present: deferred - Extremities Exam Extremities exam: Present: normal inspection - Back Exam Back exam: Present: normal inspection - Neurological Exam Neurological exam: Present: alert, oriented X3, CN II-XII intact, normal gait - Expanded Neurological Exam Expanded Patient oriented to: Present: person, place, time Motor strength exam: RUE: 5, LUE: 5, RLE: 5, LLE: 5 Best Eye Response ([place]): (4) open spontaneously Best Motor Response ([place]): (6) obeys commands Best Verbal Response ([place]): (5) oriented [place] Total: 15 - Psychiatric Psychiatric exam: Present: normal affect - Skin Skin exam: Present: warm, dry, intact, normal color. Absent: rash ED Course Vital Signs 02/12/18 02:17 Temperature 98.1 F Pulse Rate 44 L Respiratory 18 Rate Blood Pressure 117/75 O2 Sat by Pulse 100 Oximetry ED Medical Decision Making - Medical Decision Making A/P: Acute on chronic leg and back pain 1-Motrin when necessary. short course flexeril 2-follow-up with primary care doctor Critical care attestation.: If time is entered above; I have spent that time in minutes in the direct care of this critically ill patient, excluding procedure time. ED Disposition Clinical Impression: Musculoskeletal pain Low back ache Qualifiers: Chronicity: acute Back pain laterality: unspecified Sciatica presence: without sciatica Qualified Code(s): M54.5 - Low back pain Disposition: TO HOME OR SELFCARE Is pt being admited?: No Does the pt Need Aspirin: No Condition: Stable Instructions: Musculoskeletal Pain (ED) Prescriptions: Cyclobenzaprine [Flexeril] 10 mg PO TID PRN #8 tablet PRN Reason: Muscle Spasm Ibuprofen [Motrin] 600 mg PO Q8H PRN #20 tablet PRN Reason: Pain Referrals: PATRICK GENAO MD [Primary Care Provider] - 3-5 Days [facility] [Provider Group] - 3-5 Days [facility] [Outside] - 3-5 Days Time of Disposition: 05:42
== END 2018-02-12 05:55 | disposition home or self-care (01) ==
LOC: ED 01:09
DX: M54.5 Low back pain (principal); M79.1 Myalgia; F17.200 Nicotine dependence, unspecified, uncomplicated
CPT/HCPCS: 81001; 99283